=== PATIENT | male | born 1950 | race Caucasian/White ===

== ENCOUNTER 2023-09-27 09:23 | Observation (INO) ==
--- NOTE | 2023-08-24 09:50 | PAT Medication Instructions ---
Medication Instructions Date of Service August 24, 2023 Home Medications Medication Instructions Recorded ketoconazole 2 % topical cream 1 applic topical .COMPLEX #60 grams 05/26/22 nitroglycerin 0.4 mg sublingual 0.4 mg sublingual Q5M PRN chest 11/02/22 tablet pain #20 tabs losartan 100 mg tablet 100 mg PO QAM #90 tabs 07/19/23 aspirin 81 mg tablet,delayed release (Adult Low Dose Aspirin) 81 mg PO QAM multivitamin (Daily Multi-Vitamin tablet) 1 tab PO QAM ketoconazole 2 % topical cream 1 applic topical L.acid,bul,para,rham-B.anim,long 10 billion cell-inulin 100 mg capsule (Probitoic Digestive Support (6 strain)) 1 cap PO QAM fexofenadine 180 mg tablet (Blanca Allergy) 180 mg PO QAM nitroglycerin 0.4 mg sublingual tablet 0.4 mg sublingual Q5M PRN chest pain losartan 100 mg tablet 100 mg PO QAM amlodipine 5 mg tablet 10 mg PO QAM atorvastatin 80 mg tablet 80 mg PO HS isosorbide mononitrate 60 mg tablet,extended release 24 hr 30 mg PO QAM metoprolol succinate 200 mg tablet,extended release 24 hr 200 mg PO QAM omeprazole 20 mg capsule,delayed release 20 mg PO HS potassium chloride 20 mEq tablet,extended release 20 meq PO Q OTHER DAY Continue as directed nitroglycerin 0.4 mg sublingual tablet 0.4 mg sublingual Q5M PRN chest pain (if needed) STOP taking 24 hours before surgery ketoconazole 2 % topical cream 1 applic topical DO NOT take the morning of surgery multivitamin (Daily Multi-Vitamin tablet) 1 tab PO QAM L.acid,bul,para,rham-B.anim,long 10 billion cell-inulin 100 mg capsule (Probitoic Digestive Support (6 strain)) 1 cap PO QAM fexofenadine 180 mg tablet (Blanca Allergy) 180 mg PO QAM losartan 100 mg tablet 100 mg PO QAM potassium chloride 20 mEq tablet,extended release 20 meq PO Q OTHER DAY Take morning of surgery With a small sip of water, OTHERWISE NOTHING TO EAT OR DRINK AFTER MIDNIGHT: aspirin 81 mg tablet,delayed release (Adult Low Dose Aspirin) 81 mg PO QAM (unless surgeon directed otherwise) amlodipine 5 mg tablet 10 mg PO QAM isosorbide mononitrate 60 mg tablet,extended release 24 hr 30 mg PO QAM metoprolol succinate 200 mg tablet,extended release 24 hr 200 mg PO QAM Take evening before surgery atorvastatin 80 mg tablet 80 mg PO HS omeprazole 20 mg capsule,delayed release 20 mg PO HS Other Notes If you have any questions please call us at [phone] or [phone] or [phone] or [phone]
--- NOTE | 2023-08-31 09:43 | Anesthesiology Consultation ---
Date of Service August 31, 2023 Assessment & Plan (1) Encounter for pre-operative examination: Chart Review Chart Review: Pending: Refer to Additional Notes / Consult section (pending cardio clearance 09/17/23 ) and Patient seen in Pre Admission Testing - Due to abnormal preop EKG and cardiac history- patient will need cardio clearance prior to surgery. Scheduled with [facility] 09/17/23 with Jose Weathers PA-C at 945am (patient aware) Possible difficult intubation (patient states difficulty with intubation with prostatectomy in 2009)- does have decreased cervical ROM on exam (patient has not had GA done at [facility]) - Patient is NOT an OPJ candidate (surgeon's office informed) Per PAT appt on 08/31/23, patient's ill approximately 2-3 weeks ago- patient's feeling better. Patient denies any recent or current illness symptoms. Denies recent illness/disease positive tests. Will leave to surgeon's discretion if preop Covid testing needed Patient seen by cardio 07/08/23= presents for follow up on LEÓN. Patient previously walking up to 2 miles a daynow having difficulty even making it half mile before he was slowed down by breathing. Ache in legs is worse with walking but does not sound as though he is cramping of calves or buttocks suggestive of intermittent claudication. Patient started on Imdur ER 30 mg to see how exertional dyspnea would respondpatient has been feeling better overall. Feels more energetic/exercise tolerance has improved but still has LEÓN which may or may not be slightly improved. He recovers quickly. Does not have any associated chest discomfort. Patient's BP appears to be well controlled. Suspect that exertional dyspnea ischemic in origin especially since symptoms improved with long-acting nitrate. Continue current medications. Teaching & Discussion Pre-Anesthesia Teaching/Discussion Notes: Instructed NPO after midnight before surgery,except medications with 15 cc of water. Medication instructions provided according to the PAT guidelines. History Surgery Operation Date: 09/27/23 08:10 Proposed Procedures p Right Total Shoulder Arthroplasty Tony - Pk Huddleston DO Height/Weight Height: 5 ft 8 in Weight: 75.6 kg Allergies Allergy/AdvReac Type Severity Reaction Status Date / Time No Known Drug Allergies Allergy Verified 08/23/23 12:49 Medications Home Medications Medication Instructions Recorded Confirmed Last Taken aspirin 81 mg tablet,delayed 81 mg PO QAM 06/14/20 08/23/23 06/24/21 release (Adult Low Dose Aspirin) multivitamin (Daily Multi-Vitamin 1 tab PO QAM 06/14/20 08/23/23 06/25/21 05:30 tablet) ketoconazole 2 % topical cream 1 applic topical .COMPLEX #60 grams 05/26/22 08/23/23 Unknown L.acid,bul,para,rham-B.anim,long 1 cap PO QAM 08/04/22 08/23/23 Unknown 10 billion cell-inulin 100 mg capsule (Probitoic Digestive Support (6 strain)) fexofenadine 180 mg tablet 180 mg PO QAM 08/04/22 08/23/23 Unknown (Blanca Allergy) nitroglycerin 0.4 mg sublingual 0.4 mg sublingual Q5M PRN chest 11/02/22 08/23/23 Unknown tablet pain #20 tabs losartan 100 mg tablet 100 mg PO QAM #90 tabs 07/19/23 08/23/23 Unknown amlodipine 5 mg tablet 10 mg PO QAM 08/23/23 08/23/23 Unknown atorvastatin 80 mg tablet 80 mg PO HS 08/23/23 08/23/23 Unknown isosorbide mononitrate 60 mg 30 mg PO QAM 08/23/23 08/23/23 Unknown tablet,extended release 24 hr metoprolol succinate 200 mg 200 mg PO QAM 08/23/23 08/23/23 Unknown tablet,extended release 24 hr omeprazole 20 mg capsule,delayed 20 mg PO HS 08/23/23 08/23/23 Unknown release potassium chloride 20 mEq 20 meq PO Q OTHER DAY 08/23/23 08/23/23 Unknown tablet,extended release Past Medical History Medical History (Updated 08/31/23 @ 09:47 by Krysta Joe PA-C) Voice hoarseness Since 2009 prostate surgery- breathing tube damaged vocal cords Dizziness x one year- usually with change in positions- cardiology adjusting medications- with changing positions slowly- usually does well Prediabetes Presumed- Hgb A1C 6.1 on 08/10/23 Headache Improved recently - with decrease is isosorbide mononitrate Pancreatic cyst (~2020) 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) per GI, repeat MRI in 2 years Constipation Occ GERD (gastroesophageal reflux disease) Well controlled and stable Glaucoma Follows routinely with eye docotr Prostate cancer diagnosed 2009--s/p prostatectomy only, Followed by Urology Hagan's esophagus (~2009) Follows with GI for routine EGDs- no issues with most recent EGD Dyslipidemia Hypertension CAD (coronary artery disease) s/p 3 vessel CABG 2014- (FUENTES to LAD; JHONY to RI but graft was atretic on repeat cath; SVG to OM) Exercise / Class Metabolic Activity III < 4 Walking/Shop/Light housework (no chest pain or SOB with flat surface ambulation ) Past Family History Family History Brother Myocardial infarction Mother Stomach cancer Hypertension Gallbladder disease Father Hypertension Other No family history of adverse response to anesthesia Denies family history of Ovarian cancer Prostate cancer Breast cancer Colorectal cancer Past Surgical History Surgical History History of bilateral cataract extraction History of esophagogastroduodenoscopy (EGD) History of colonoscopy 10/2015, Repeat 10 yrs History of open reduction and internal fixation (ORIF) procedure femur fx-left--hardware removed History of left knee surgery History of biopsy nodule on pancreas--benign History of prostate biopsy malignant History of tonsillectomy and adenoidectomy History of eye surgery left History of cardiac cath x3 last 11/2021 @ [facility] no stents and 2014--unable to stent, had CABGx3 History of prostatectomy (~2009) History of wisdom tooth extraction History of inguinal hernia repair left S/P CABG x 3 2015 @ [facility] in [place], [place] Past Anesthesia History No Hx of Anesthesia Complications (with exception to possible difficult airway ), Difficult Airway (in 2009- with prostate surgery - had damage to vocal cords- chronic residual voice hoarseness ) and No Family Hx of Anesthesia Complications History of PONV No Hx of PONV and No Hx of Motion Sickness Social History Smoking Status: Former smoker Do You Dip or Chew Tobacco: No Smoking End Date: quit 10yrs ago Hx Alcohol Use: No Hx Substance Use: No substance use type: does not use Review of Systems Patient denies chest pain, shortness of breath, dyspnea on exertion, cough, wheezing, palpitations. No hx of seizures, stroke, NH, apnea/snoring. No hx of blood clots or blood transfusions Physical Exam Vital Signs VITALS BP 144/74 P 66bpm TEMP 97.7 SP02 97% RESP 16 Constitutional no acute distress ENMT Mouth: no TMJ clicking Thyromental Distance: < 3.5 Finger Breadths (3.0) Mallampati Class: I Caps to molars and side teeth Neck + limited neck extension (significant ) Respiratory normal respiratory effort; no respiratory distress Auscultation: lungs clear to auscultation bilaterally; no wheezes Cardiovascular Rate/Rhythm: regular rate and regular rhythm Heart Sounds: no murmur Vessels: no carotid bruit Musculoskeletal Spine: no pain with cervical ROM Extremities: extremities normal to inspection Psychiatric Orientation: alert Lab Results Anesthesia Preop Results Results Anesthesia Widget: WBC 7.22 K/ul (4.8-10.8) 08/31/23 Hgb 14.2 g/dl (14.0-18.0) 08/31/23 Hct 41.4 % (42.0-52.0) L 08/31/23 Plt 218 K/uL (130-400) 08/31/23 Na 139 mmol/L (136-145) 08/31/23 K 3.8 mmol/L (3.5-5.1) 08/31/23 Cl 102 mmol/L (98-107) 08/31/23 CO2 29 mmol/L (21-32) 08/31/23 BUN 19 mg/dl (6-23) 08/31/23 Creat 1.03 mg/dl (0.6-1.4) 08/31/23 Glucose Level 101 mg/dl (70-99(Fasting)) H 08/31/23 PT 11.5 Seconds (9.0-12.0) 08/31/23 PTT 29.6 Seconds (21.0-31.0) 08/31/23 INR 1.1 (0.9-1.1) 08/31/23 HA1c 6.1 % (4.5-5.6) H 08/10/23 Blood Type B Negative 08/31/23 Antibody Screen NEGATIVE 08/31/23 Testing Electrocardiogram Date: 08/24/23 Findings: + NSR @ (65bpm) Left atrial enlargement ST and T wave abnormality, consider anterior ischemia Chest X-Ray Date: 08/31/23 Findings: + NAD FINDINGS: Cardiac silhouette is normal in size. Sternotomy wires are present. Diaphragmatic flattening. No pneumothorax, pleural effusion or airspace consolidation. Degenerative changes of the shoulders and spine Echocardiogram Date: 07/05/20 EF: 60-65% LV Function: normal Other Findings: + LVH (mild/concentric ) and + diastolic dysfunction (Grade 1) Small area of hypokinesis involving the basal inferior wall. Mildly dilated RV with normal systolic function Sclerotic aortic valve without significant stenosis Normal estimated RVSP. Stress Test Date: 01/10/21 Type: exercise (ECHO ) Resting EF: 60% No ischemic changes noted on stress ECHO imaging at 77% MPHR Nondiagnostic exercise EKG at target heart rate was not attained Appropriate BP response to exercise. No arrhythmia. No LVH. Small area of hypokinesis involving basal inferior wall segment Cardiac Catheterization Date: 11/20/21 Coronary angiography: 1. Left main: Distal left main 60 to 70% stenosis. 2. Left anterior descending: Proximal LAD 80%. Mid LAD diffuse severe CAD of 95+ %. Competitive flow noted within the mid to distal LAD. Small caliber D1 with ostial 70% stenosis. 3. Circumflex: Dilated/Aneurysmal segment noted within the ostial/proximal circumflex, involving high OM1. Mid circumflex 30%. Competitive flow noted within the mid to distal circumflex. Large caliber high OM1 with proximal 30 to 40% stenosis. Cannot exclude more significant stenosis within the aneurysmal segment. SEBAS-3 flow. OM 2 without significant CAD. 4. Right coronary artery: RCA is dominant. Luminal irregularities within the mid RCA. No significant CAD within the PL or PDA. Bypass graft angiography: 1. FUENTES to LAD patent, filling the mid to distal LAD and also retrograde filling small D1. 2. SVG to circumflex: Widely patent. Large-caliber SVG which also fills retrograde into OM 2. 3. JHONY was reported as atretic, and not visualized during this study. Impression: 1. Severe CAD involving left main and LAD. 2. Widely patent FUENTES to LAD and SVG to circumflex. 3. Dilated/aneurysmal ostial/proximal circumflex/OM1. 4. No aortic stenosis. 5. Normal left-sided filling pressure. Plan: 1. Images were reviewed with Dr. Chery of interventional cardiology. Due to the dilated/aneurysmal portion of the ostial/proximal circumflex/high OM1, medical therapy was recommended rather than proceeding with PCI attempt of LMCA. 2. Optimize medical therapy. 3. Risk factor modification.
[~2023-09-27 09:23] MED LIST: ACETAMINOPHEN 500 MG TAB PO SCH; BUPIVACAINE 0.5 % 5 MG/1 ML PF 10ML VIAL ONE; FAMOTIDINE 20 MG TAB PO SCH; GABAPENTIN 300 MG CAP PO SCH; LR 15ML/HR IV SCH; LR 60ML/HR IV SCH; ORTHO JOINT MIX INFIL SCH; TRANEXAMIC ACID 1,000 MG **IV Intra-op IV SCH; TRANEXAMIC ACID 1,000 MG **IV Pre-op IV SCH; ceFAZolin 2000MG 2,000 MG/15 ML SYR IV SCH; dexAMETHasone 4 MG TAB PO SCH
[2023-09-27] MEDS ORDERED: ONDANSETRON INJ 2 MG/ML 2 ML VIAL ONE (09:37)
[2023-09-27] MEDS ORDERED: PROPOFOL IV EMULSION 10 MG/ML 20 ML VIAL IV ONE (09:37)
[2023-09-27] MEDS ORDERED: ROCURONIUM BROMIDE 10 MG/ML 5 ML VIAL IV ONE (09:37)
[2023-09-27] MEDS ORDERED: MIDAZOLAM HCL 1 MG/ML 2ML VIAL ONE (09:37)
[2023-09-27] MEDS ORDERED: LIDOCAINE 2% 2 ML VIAL/AMP(20MG/ML) INFIL ONE (09:37)
[2023-09-27] MEDS ORDERED: fentaNYL citrate PF 100 MCG/2 ML VIAL ONE (09:38)
[2023-09-27] MEDS ORDERED: fentaNYL citrate PF 100 MCG/2 ML VIAL IV PRN (10:04)
[2023-09-27] MEDS ORDERED: ATROPINE SULFATE 0.1 MG/ML 10ML SYR IV PRN (10:04)
[2023-09-27] MEDS ORDERED: PROMETHAZINE HCL 6.25 MG in SODIUM CHLORIDE 0.9% 50 ML IV PRN (10:04)
[2023-09-27] MEDS ORDERED: ePHEDrine sulfate 50 MG/ML AMP IV PRN (10:04)
[2023-09-27] MEDS ORDERED: ONDANSETRON INJ 2 MG/ML 2 ML VIAL IV PRN ×2 (10:04→13:50)
--- NOTE | 2023-09-27 10:08 | History & Physical Bridge Note ---
Date of Service September 27, 2023 History & Physical Bridge Note I have examined the patient, reviewed the History & Physical and in the interval since the performance of the History & Physical I have noted the following changes of clinical significance: no changes noted
[2023-09-27] MEDS ORDERED: ORTHO JOINT ANESTHETIC ONE (10:23)
--- NOTE | 2023-09-27 11:59 | Operative Report ---
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 long head of biceps tendon I identified the patient and participated in the time-out.: Yes Procedure Operation Date: 09/27/23 11:00 Actual Procedures p Right Total Shoulder Arthroplasty Reverse, Uncemented(Right) with open biceps tenodesis as a distinct and separate procedure (modifier 59)- Pk Huddleston DO Surgeon Pk Huddleston DO Garbage Collector Driver Pk Lara PA-C Estimated Blood Loss 100 Findings Consistent with Post-Op Diagnosis Specimens Right humeral head Description of Procedure A CPT code modifier 59: The long head of the biceps tendon was enlarged and inflamed consistent with tendinopathy. A tenodesis was opted. This was a separate and distinct portion of the procedure. For these reasons, a CPT code modifier 59 will be added to this case. Implants used: I used a Biomet Comprehensive reverse total shoulder arthroplasty system with a size 13 press fit micro humeral stem, a +6 offset humeral tray and a +3 retentive humeral bearing, a 25 mm small augment baseplate with a 6.5 mm central screw and superior and inferior locking screws, and a size 40 mm eccentric glenosphere. Isaac arrived at [facility] for the above procedure. He was seen in the preoperative holding area and the operative extremity was identified and signed. He was given a preoperative antibiotic, TXA, and an interscalene nerve block. He was taken back to the operating room, laid on table in supine position, and put under general anesthesia. He was then put into the beachchair position. The shoulder was then prepped and draped in sterile fashion. A timeout was done and the patient and the operative extremity was properly identified. A deltopectoral approach was used. Dissection was taken down through the fascia and the deltoid was retracted laterally and the conjoined tendon was retracted medially. The anterior shoulder was exposed. The biceps groove was opened up and the biceps tendon was examined extensively. The biceps tendon demonstrated enlargement and inflammatory changes consistent with longstanding inflammation in the context of osteoarthritis and cuff arthropathy. The long head of the biceps tendon was then tenodesed to the upper border of the pectoralis major. This was a separate and distinct portion of the procedure. The subscapularis was then directly released off the lesser tuberosity with a peel technique. The inferior capsule was released and the humeral head was dislocated. A canal finding reamer was sent down the center of the humeral canal. Sequential reaming up to a size 13 reamer was done. Off that reamer, a proximal humeral resection guide was placed. The proximal humerus was resected at 135 of inclination and 25 of retroversion. Osteophytes were then removed and the glenoid was exposed. Time was spent doing a complete capsular and labral release. The glenoid guide was then placed in the inferior aspect of the glenoid. A 3.2 mm Steinmann pin was then placed into the glenoid vault at 10 of inclination. The glenoid baseplate was then reamed. The final size 25 mm baseplate was then impacted in the place. A 6.5 mm central screw was then placed followed by superior and inferior locking screws. A 40 mm eccentric glenosphere was then impacted into place. Surrounding soft tissues were then injected with 100 cc an orthopedic pain control cocktail. The proximal humerus was then exposed. Sequential broaching of the humerus up to a size 13 broach was done. Off that broach a +6 offset and +3 retentive humeral tray was trialed. The shoulder was then reduced, brought through a full range of motion, and felt to be stable. The shoulder was then dislocated and the broach was removed. The final size 13 micro press-fit humeral stem was then impacted into place. A +3 retentive humeral bearing was then snapped onto a +6 offset humeral tray. The humeral tray was then impacted onto the humeral stem. The shoulder was once again reduced, brought through a full range of motion, and felt to be stable. The subscapularis was retracted and poor quality. The subscapularis was unable to be repaired. A dilute betadyne lavage was then done for 3 minutes. The joint was then irrigated with normal saline solution. Hemostasis was obtained. The interval was closed with 2-0 Vicryl suture. The skin was then closed with 2-0 Vicryl and aurora. A Silverlon dressing was placed and the arm was rested in a regular arm sling. He was then extubated and transferred to a hospital bed. He taken to the postanesthesia care unit in stable condition. He tolerated the procedure well. Pk Lara PA-C, was present for the entire procedure. He was critical for patient positioning, prepping, draping, retraction exposure, wound closure and application of sterile dressing. I attest to the content of the Intraoperative Record and any orders documented therein. Any exceptions are noted below.
[2023-09-27] MEDS ORDERED: SUGAMMADEX SODIUM 200 MG/2 ML VIAL IV ONE (12:02)
--- NOTE | 2023-09-27 12:35 | XRay Report ---
RIGHT SHOULDER 2 VIEWS CLINICAL HISTORY: Postoperative examination. FINDINGS: 2 portable views of the right shoulder are compared to study dated 07/19/2020. The skeletal structures are osteopenic. A right shoulder arthroplasty is in near anatomic alignment. No fracture s een. Skin clips, subcutaneous gas, and soft tissue swelling overlying the right shoulder are expected postsurgical changes. There is productive degenerative change at the acromioclavicular joint. The im aged right lung parenchyma is clear noting dependent atelectasis. Midline sternotomy wires are partia lly imaged. IMPRESSION: Expected post surgical findings status post right shoulder arthroplasty. No fracture is s een. Electronically signed by: Mushtaq Curran M.D. 09/27/2023 12:33 PM
--- NOTE | 2023-09-27 12:38 | Anesthesiology Progress Note ---
Date of Service September 27, 2023 Anesthesia Post Procedure Vital Signs Vital Signs: Temp Pulse Pulse Resp BP Pulse Ox O2 Del Method 09/27/23 12:35 69 20 108/60 95 Room Air 09/27/23 12:25 70 18 108/64 99 Oxymask 09/27/23 12:15 36.2 C L 76 12 131/62 100 Oxymask 09/27/23 09:58 36.9 C 68 18 189/82 H 98 Room Air O2 Flow Rate 09/27/23 12:35 09/27/23 12:25 4 09/27/23 12:15 6 09/27/23 09:58 Transfer of Care Handoff Completed per policy Notes Mental Status: alert / awake / arousable Patient Amnestic to Procedure: Yes Nausea / Vomiting: adequately controlled Pain: adequately controlled Airway Patency, RR, SpO2: stable & adequate BP & HR: stable & adequate Hydration State: stable & adequate Anesthetic Complications: no major complications apparent
[2023-09-27] MEDS ORDERED: HYDROmorphone INJ 0.5 MG/0.5 ML SYR IV PRN (13:50)
[2023-09-27] MEDS ORDERED: NALOXONE HCL 0.4 MG/1 ML VIAL/CARP IV PRN (13:50)
[2023-09-27] MEDS ORDERED: bisacodyL 10 MG SUPP PR PRN (13:50)
[2023-09-27] MEDS ORDERED: METOCLOPRAMIDE HCL INJ 5 MG/ML 2 ML VIAL IV PRN (13:50)
[2023-09-27] MEDS ORDERED: NITROGLYCERIN SL 0.4 MG/TAB TAB SL PRN (13:50)
[2023-09-27] MEDS ORDERED: oxyCODONE HCL IR 5 MG TAB (IMMEDIATE RELEASE) PO PRN (13:50)
[2023-09-27] MEDS ORDERED: MAGNESIUM HYDROXIDE SUSP 30 ML UDC PO PRN (13:50)
[2023-09-27] MEDS ORDERED: KETOCONAZOLE 2% CR 15 GM TUBE EXT SCH (13:50)
[2023-09-27] MEDS ORDERED: POTASSIUM CHLORIDE CRTAB 20 MEQ TABCR PO SCH (13:50)
[2023-09-27] MEDS: SODIUM CHLORIDE 0.9% 1,000 ML IV SCH ×2 (16:06→16:21)
[2023-09-27] MEDS: KETOROLAC TROMETHAMINE 15 MG/ML VIAL IV SCH ×3 (16:21→23:20)
[2023-09-27] MEDS: ACETAMINOPHEN 500 MG TAB PO SCH ×2 (16:21→21:16)
[2023-09-27] MEDS: ceFAZolin 2000MG 2,000 MG/15 ML SYR IV SCH (18:49)
[2023-09-27] MEDS ORDERED: ATORVASTATIN 40 MG TAB PO SCH (21:00)
[2023-09-27] MEDS ORDERED: SENNA 8.6 MG TAB PO SCH (21:00)
[2023-09-27] MEDS: DOCUSATE SODIUM 100 MG CAP PO SCH (21:16)
[2023-09-28] MEDS: ceFAZolin 2000MG 2,000 MG/15 ML SYR IV SCH (01:41)
[2023-09-28] MEDS: SODIUM CHLORIDE 0.9% 1,000 ML IV SCH (03:53)
[2023-09-28] MEDS: ACETAMINOPHEN 500 MG TAB PO SCH (06:04)
[2023-09-28] MEDS: KETOROLAC TROMETHAMINE 15 MG/ML VIAL IV SCH (06:05)
[2023-09-28] MEDS ORDERED: dexAMETHasone 4 MG TAB PO SCH (08:00)
[2023-09-28] MEDS: DOCUSATE SODIUM 100 MG CAP PO SCH (08:39)
[2023-09-28] MEDS ORDERED: METOPROLOL SUCC 50MG EXT REL TAB PO SCH (09:00)
[2023-09-28] MEDS ORDERED: ISOSORBIDE MONO EXTENDED REL 30 MG TABCR PO SCH (09:00)
[2023-09-28] MEDS ORDERED: FEXOFENADINE HCL 180 MG TAB PO SCH (09:00)
[2023-09-28] MEDS ORDERED: LOSARTAN POTASSIUM 50 MG TAB PO SCH (09:00)
[2023-09-28] MEDS ORDERED: amLODIPine BESYLATE 5 MG TAB PO SCH (09:00)
[2023-09-28] MEDS ORDERED: ASPIRIN 81 MG ECTAB PO SCH (09:00)
[2023-09-28] MEDS ORDERED: MULTIVITAMIN TAB PO SCH (09:00)
--- NOTE | 2023-09-28 09:19 | Orthopedic Progress Note ---
Date of Service September 28, 2023 Assessment & Plan (1) Status post reverse total replacement of right shoulder: Overall he is doing quite well today with good pain control to the right shoulder. He will work with physical therapy and Occupational Therapy today to work on range of motion exercises to the right upper extremity. He may be discharged later today. He will follow-up with orthopedics in 2 weeks for postoperative care. Subjective . Isaac was seen at bedside this morning resting comfortably in no apparent distress. He notes that his pain is well-controlled to the right shoulder. He has been up and ambulating to the bathroom. He has no other concerns today. Review of Systems All systems reviewed & are unremarkable except as noted in HPI & below. Physical Exam . On physical examination of the right shoulder, dressing is in place, dry, and intact. Arm is immobilized in the sling. Active range of motion is intact at the elbow, wrist, and all 5 digits. Intact motor function to the right upper extremity. +2 radial pulse. Less than 2-second capillary refill. Normal sensation. Neurovascular intact. Results & Data Results & Data Laboratory Results . Diagnostic Findings . Postoperative x-rays of the right shoulder show prosthesis to be in anatomical alignment with no evidence of fracture complication or loosening. PG Care Time/CCT Total # of Minutes Spent Total Time Spent with Patient: Total time spent is greater than 50% in coordination of care (as documented) at patient's floor/unit and/or counseling patient: Coding Level of Care Code 50194 Post Operative Follow-Up Diagnoses Status post reverse total replacement of right shoulder Z96.611
--- NOTE | 2023-09-28 09:21 | Discharge Summary ---
Date of Service September 28, 2023 Principal Diagnosis Same as "Discharge Diagnosis" noted below under Discharge Instructions. Discharge Exam . On physical examination of the right shoulder, dressing is in place, dry, and intact. Arm is immobilized in the sling. Active range of motion is intact at the elbow, wrist, and all 5 digits. Intact motor function to the right upper extremity. +2 radial pulse. Less than 2-second capillary refill. Normal sensa tion. Neurovascular intact. Discharge Data Procedures Performed Operation Date: 09/27/23 11:00 Actual Procedures p Right Total Shoulder Arthroplasty Reverse, Uncemented(Right) - Pk Huddleston DO Ordered Studies 09/27/23 05:00 US - OR guided needle placemen Routine Hospital Course (1) Status post reverse total replacement of right shoulder: On September 27, 2023 Isaac arrived at [facility] and underwent a right reverse total shoulder arthroplasty with no complications. He had a general anesthetic. Postoperatively, he was transferred to PACU for immediate postoperative care and then transferred up to the general orthopedic floor in stable condition. His hospital course was uneventful. On postoperative day #1, his vital signs are stable and his pain was well-controlled. He participated well with physical therapy working on range of motion exercises. He was then discharged home in stable condition. He will follow-up with orthopedics in [facility] for postoperative care. PG Care Time/CCT Total # of Minutes Spent Total Time Spent with Patient: Total time spent is greater than 50% in coordination of care (as documented) at patient's floor/unit and/or counseling patient: Discharge Plan Discharge Items Patient Disposition: Home - Home Health Services Reason For Visit: DJD Right Shoulder Discharge Diagnosis: Right reverse shoulder replacement Activity: Per Instructions section Non-emergency contact: Surgeon Call non-emergency contact if: your wound has increased redness and your wound has increased drainage Follow-up/Referrals: Pk Saeed DO [Primary Care Provider] - Diet: Low Sodium (2gm) Addtl Attending Provider Instructions: Activity and Therapy Recommendations: * If you are using [facility] then therapy will be provided at your home until they feel you have accomplished all of your goals. * If you are using [facility] then Physical Therapy will be provided until they feel you are ready to start Outpatient Physical Therapy. * If you are not using home therapy then Outpatient Physical Therapy should start about 3-5 days from your day of surgery. Therapy will last about 8-12 weeks * Wear your sling for 3 weeks, unless otherwise instructed. You may remove your sling to shower and to dress, but otherwise, you should be in your sling at all times, including while sleeping * The shoulder replacement is very stable and you can use your hand while in the sling * You were shown a series of exercises in the hospital. Do these exercises daily including the exercises you were shown in physical therapy. Medications: * Narcotic You will likely be sent home from the hospital with a prescription for the narcotic pain medication that worked best throughout your stay. * Cefadroxil -take the antibiotic twice a day for 10 days to help prevent infection. * Other medications may be prescribed for specific circumstances. If you have any questions, please call the office at . * Resume previous home medications unless otherwise instructed Dressing Care: Leave the Silverlon dressing in place for 7 days. After 7 days you may remove the dressing. If the incision is not draining then you may leave the aurora open to air. If there is a little bit of drainage or if the aurora are getting stuck on your clothing then cover the incision with a dry dressing. The aurora will be removed at your 2 week follow-up appointment. Showering: You may shower with the Silverlon dressing in place. Do not let the shower spray hit the dressing directly. Pat the Silverlon dressing dry. If the dressing becomes wet underneath, then simply remove the dressing. Keep the incision dry until you are 7 days out from the day of surgery. After 7 days you may remove the Silverlon dressing and shower with the aurora exposed. Let soapy water run over the aurora and pat them dry. Do not scrub or soak the incision. Things To Watch For: * Drainage from the incision site that occurs more than one week after your surgery. * Increased redness at the incision site. * Fever above 102 degrees Fahrenheit. * Unusual chest pain or shortness of breath. * Call [facility] at with any of the above problems Follow-Up Visit: Follow-up with Dr. Huddleston's PA (Pk Lara) 2-3 weeks after your day of surgery. He will remove your aurora and answer any questions. If you have any additional questions or concerns, Dr Huddleston is usually in the office at the same time and will be available An appointment was probably scheduled when you signed-up for surgery in the office. If you have any questions call More detailed instructions as well as Frequently Asked Questions were provided in a folder by our office when you signed-up for surgery. Please review these instructions when you get home. If you have any further questions or concerns, please feel free to call the office at [phone] Pending Studies at Discharge: No Stand-Alone Forms: My [facility] Maintenance Assistant, Smoking Cessation Medications and DC Order Prescriptions: New cefadroxil 500 mg capsule 500 mg PO BID 10 Days Qty: 20 0RF tramadol 50 mg tablet 50 mg PO Q6H PRN (Reason: pain) Qty: 30 0RF Continued nitroglycerin 0.4 mg tablet, sublingual 0.4 mg sublingual Q5M PRN (Reason: chest pain) Qty: 20 3RF Rx Instructions: do not exceed 3 doses per episode losartan 100 mg tablet 100 mg PO QAM Qty: 90 3RF ketoconazole 2 % cream 1 applic topical .COMPLEX Qty: 60 2RF Rx Instructions: 1 applic topically to feet 2-3 nights weekly for maintenance. fexofenadine [Blanca Allergy] 180 mg tablet 180 mg PO QAM Probiotic Digest Supp (6-strn) 10 billion cell -100 mg capsule 1 cap PO QAM aspirin [Adult Low Dose Aspirin] 81 mg tablet,delayed release (DR/EC) 81 mg PO QAM multivitamin [Daily Multi-Vitamin] Tablet 1 tab PO QAM amlodipine 5 mg tablet 10 mg PO QAM isosorbide mononitrate 60 mg tablet extended release 24 hr 30 mg PO QAM omeprazole 20 mg capsule,delayed release(DR/EC) 20 mg PO HS potassium chloride 20 mEq tablet extended release 20 meq PO Q OTHER DAY Patient Comments: in am metoprolol succinate 200 mg tablet extended release 24 hr 200 mg PO QAM Patient Comments: QAM atorvastatin 80 mg tablet 80 mg PO HS Admission Data Admit Date/Time: 09/27/23 12:15 Attending Provider: Pk Huddleston Admit Provider: Pk Huddleston Primary Care Provider: Pk Saeed
== END 2023-09-28 10:35 | disposition home health service (06) ==
LOC: 3W 09:23 → ASU 09:23

== ENCOUNTER 2024-07-13 09:50 | Inpatient (IN) ==
[2024-07-13] MEDS: SODIUM CHLORIDE 0.9% 500 ML IV SCH (10:33)
--- NOTE | 2024-07-13 10:36 | Emergency Department Note ---
History of Present Illness General Chief complaint: Syncope Stated complaint: SYNCOPE Time Seen by Provider: 07/13/24 10:11 Source: patient, family (Daughter and son-in-law are at the bedside), RN notes reviewed and old records reviewed (06/15/24-outpatient primary care visit for ongoing medical treatments) Mode of arrival: ambulatory Limitations: no limitations History of Present Illness This patient comes in after having a syncopal episode. He does have a history of falls and got dizzy this morning and fell. There were no injuries. His may have a headache for couple weeks. He was recently was in [facility]. His does have COVID. He is on no blood or melena stool no diarrhea. No chest pain or shortness of breath. No abdominal pain . no focal numbness or weakness. Denies abdominal pain. Denies urinary symptoms. Home Medications Medication Instructions Recorded Confirmed Type aspirin 81 mg tablet,delayed 81 mg PO QAM 06/14/20 07/13/24 History release (Adult Low Dose Aspirin) multivitamin (Daily Multi-Vitamin 1 tab PO QAM 06/14/20 07/13/24 History tablet) L.acid,bul,para,rham-B.anim,long 1 cap PO QAM 08/04/22 07/13/24 History 10 billion cell-inulin 100 mg capsule (Probitoic Digestive Support (6 strain)) fexofenadine 180 mg tablet 180 mg PO QAM 08/04/22 07/13/24 History (Blanca Allergy) losartan 100 mg tablet 100 mg PO QAM #90 tabs 07/19/23 07/13/24 Rx isosorbide mononitrate 60 mg 30 mg PO QAM 08/23/23 07/13/24 History tablet,extended release 24 hr atorvastatin 80 mg tablet 80 mg PO HS 09/15/23 07/13/24 History metoprolol succinate 200 mg 200 mg PO QAM #90 tabs 10/15/23 07/13/24 Rx tablet,extended release 24 hr amoxicillin 500 mg tablet 2,000 mg PO UD PRN procedures 12/07/23 07/13/24 History omeprazole 40 mg capsule,delayed 40 mg PO HS barretts esophagus #90 12/23/23 07/13/24 Rx release caps potassium chloride 20 mEq 20 meq PO Q2D #90 tabs 03/15/24 07/13/24 Rx tablet,extended release ketoconazole 2 % topical cream 1 applic topical UD #30 grams 04/11/24 07/13/24 Rx nitroglycerin 0.4 mg sublingual 0.4 mg sublingual Q5M PRN chest 04/11/24 07/13/24 Rx tablet pain #20 tabs amlodipine 5 mg tablet 7.5 mg (1.5 x 5 mg) PO DAILY #45 05/09/24 07/13/24 Rx tabs cyanocobalamin (vitamin B-12) 1,000 mcg PO DAILY #30 caps 05/11/24 07/13/24 Rx 1,000 mcg capsule Allergies Allergy/AdvReac Type Severity Reaction Status Date / Time No Known Drug Allergies Allergy Verified 06/15/24 09:26 Past Med/Surg History Problem List (Updated 07/13/24 @ 10:36 by Pk Jasmine MD) Escherichia coli infection (Acute) Acute electrocardiogram changes (Acute) Elevated troponin (Acute) COVID (Acute) Chest pain Hypokalemia Hypomagnesemia Cognitive decline Fall Diarrhea COVID-19 Syncope (Acute) Elevated alkaline phosphatase level Vitamin B12 deficiency Headache syndrome Loss of taste Chronic headaches Balance disorder Prediabetes Presumed- Hgb A1C 6.1 on 08/10/23 Pancreatic cyst (~2020) 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) per GI, repeat MRI in 2 years Dyspnea on exertion Exertional angina Hypertension S/P CABG x 3 (Acute) 2014 @ [facility] in [place], [place] CAD (coronary artery disease) s/p 3 vessel CABG 2014- (FUENTES to LAD; JHONY to RI but graft was atretic on repeat cath; SVG to OM) Dyslipidemia (Chronic) GERD (gastroesophageal reflux disease) Well controlled and stable Hagan's esophagus (~2009) Follows with GI, Last EGD 11/2023 History of prostatectomy (~2009) Prostate cancer diagnosed 2009--s/p prostatectomy only, Followed by Urology Glaucoma Follows routinely with eye docotr DDD (degenerative disc disease), lumbar Status post reverse total replacement of right shoulder (~09/2023) Medical History Abnormal EKG Voice hoarseness Since 2009 prostate surgery- breathing tube damaged vocal cords Dizziness x one year- usually with change in positions- cardiology adjusting medications- with changing positions slowly- usually does well Headache Improved recently - with decrease is isosorbide mononitrate Constipation Occ Surgical History History of reverse total replacement of right shoulder joint History of bilateral cataract extraction History of esophagogastroduodenoscopy (EGD) History of colonoscopy 10/2015, Repeat 10 yrs History of open reduction and internal fixation (ORIF) procedure femur fx-left--hardware removed History of left knee surgery History of biopsy nodule on pancreas--benign History of prostate biopsy malignant History of tonsillectomy and adenoidectomy History of eye surgery left History of cardiac cath x3 last 11/2021 @ [facility] no stents and 2014--unable to stent, had CABGx3 History of wisdom tooth extraction History of inguinal hernia repair left Family History Brother Myocardial infarction Mother Stomach cancer Hypertension Gallbladder disease Father Hypertension Other No family history of adverse response to anesthesia Denies family history of Ovarian cancer Prostate cancer Breast cancer Colorectal cancer Social History Smoking Status: Former smoker Tobacco Type: Cigarettes Age Started Using Tobacco: 23; Age Quit Using Tobacco: 36; packs per day: 1; Second Hand Exposure: No; Do You Dip or Chew Tobacco: No; Hx Alcohol Use: No Hx Substance Use: No Preferred Language: British Communication Ability: Effective Visual Impairment: Limited Hearing Ability: Hard of Hearing 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 Required: No Beliefs That Will Affect Care: None marital status: Current Living Situation: Spouse current occupational status: retired How many Children do You have: 2 Feels Safe at Home: Yes Childhood Exposure to Second-Hand Smoke: Yes Diet: regular caffeine: Yes (coffee ) during the past year weight has: decreased > 10 lbs Dental Care, Regularly: Yes Physical Activity Frequency: 3-4 Times per Week Physical Activity Frequency Comment: walking Seatbelt Use: always Sunscreen Use: No Do you think of yourself as: straight/heterosexual Assistive Devices: Glasses Review of Systems A total of 10 systems reviewed and were otherwise negative Physical Exam Vital Signs Vital Signs - 24 hr 07/13/24 10:01 07/13/24 10:40 07/13/24 10:40 Temperature 36.7 C Temperature Source Oral Pulse Rate 63 63 Pulse Rate [Apical] Pulse Rhythm Regular Pulse Rhythm [Apical] Pulse Strength Normal Pulse Strength [Apical] Respiratory Rate 24 Respiratory Effort / Characteristics Non-Labored Spontaneous Respiratory Depth Normal Respiratory Pattern Regular Blood Pressure 151/60 H Blood Pressure [Left Arm] Blood Pressure Mean 90 Blood Pressure Mean [Left Arm] Blood Pressure Position Semi-fowlers Blood Pressure Position [Left Arm] Pulse Oximetry 93 93 Oxygen Delivery Method Room Air Room Air Sepsis Recent Fever Within 48 Hours No Sepsis New/Unexplained Change in Mental Status No Sepsis Action Taken by Nursing No Action Required 07/13/24 10:40 07/13/24 12:00 Temperature Temperature Source Pulse Rate Pulse Rate [Apical] 63 62 Pulse Rhythm Pulse Rhythm [Apical] Regular Pulse Strength Pulse Strength [Apical] Normal Respiratory Rate 24 18 Respiratory Effort / Characteristics Non-Labored Spontaneous Respiratory Depth Normal Respiratory Pattern Regular Blood Pressure Blood Pressure [Left Arm] 151/60 H 171/71 H Blood Pressure Mean Blood Pressure Mean [Left Arm] 90 104 Blood Pressure Position Blood Pressure Position [Left Arm] Semi-fowlers Pulse Oximetry 93 96 Oxygen Delivery Method Room Air Sepsis Recent Fever Within 48 Hours Sepsis New/Unexplained Change in Mental Status Sepsis Action Taken by Nursing General: Well developed well nourished older male who appears in no acute distress, breathing comfortably on room air. Normal speech HEENT: Normal cephalic atraumatic. Pupils are equal round and reactive to light. Sclera are anicteric extraocular movements are intact. Oropharynx is pink with moist mucous membranes. No swelling of the mouth lips or tongue. Neck: Supple with a midline trachea. No meningeal signs or stiffness, no JVD or bruits. No Stridor. Chest: Clear to auscultation bilaterally. No wheezes or rhonchi. No increased work of breathing. Heart: Regular rate and rhythm without murmurs or gallops. Abdomen: Soft nontender, nondistended without rebound guarding or rigidity. Extremities: No cyanosis clubbing or edema. No calf tenderness or assymetry Spine/Back. Non tender to palpation. No CVA tenderness Skin: Good turgor without rashes. Neurologic exam: Cranial nerves two through 12 are intact. Motor and sensation are intact and symmetrical throughout. No tremor. Course Administered Medications Magnesium Sulfate/Dextrose (Magnesium Sulfate / D5w) 1 gm in 100 mls @ 50 mls/hr IV Q2H MARIBEL Stop: 07/13/24 15:59 Last Infusion: 07/13/24 15:16 Dose: Infused Documented By: Admin: 07/13/24 12:29 Dose: 50 mls/hr Documented By: Lactated Ringer's (Lr) 1,000 mls @ 80 mls/hr IV .[id number] MARIBEL Stop: 07/14/24 14:29 Last Admin: 07/13/24 14:13 Dose: 80 mls/hr Documented By: KHADIJAH Discontinued Medications Sodium Chloride (Nss) 500 mls @ 999 mls/hr IV .[id number] MARIBEL Stop: 07/13/24 11:00 Last Infusion: 07/13/24 12:29 Dose: Infused Documented By: Admin: 07/13/24 10:33 Dose: 999 mls/hr Documented By: Isosorbide Mononitrate (Isosorbide Desha Extended Rel 30 Mg Tabcr) 30 mg PO NOW ONE Stop: 07/13/24 13:10 Last Admin: 07/13/24 14:13 Dose: 30 mg Documented By: KHADIJAH Magnesium Oxide (Magnesium Oxide 400 Mg Tab) 400 mg PO ONE ONE Stop: 07/13/24 11:59 Last Admin: 07/13/24 12:29 Dose: 400 mg Documented By: Potassium Chloride (Potassium Chloride Crtab 20 Meq Tabcr) 40 meq PO NOW STA Stop: 07/13/24 12:09 Last Admin: 07/13/24 12:40 Dose: 40 meq Documented By: Medical Decision Making Differential Diagnosis COVID, arrhythmia, weakness, intracranial process, traumatic injury, anemia, infection, dehydration Medical Records Attestation: I reviewed the patient's medical records. Home Medications Current Medication List: was personally reviewed by me Laboratory Data Attestation: I reviewed the patient's lab results. 07/13/24 10:00 07/13/24 10:00 Lab Results 07/13/24 07/13/24 07/13/24 Range/Units 10:00 10:20 12:40 WBC 7.55 (4.8-10.8) K/ul RBC 5.01 (4.70-6.10) M/uL Hgb 14.7 (14.0-18.0) g/dl Hct 41.8 L (42.0-52.0) % MCV 83.4 (80.0-100.0) fL MCH 29.3 (25.0-34.0) pg MCHC 35.2 (32.0-36.0) g/dL RDW Std Deviation 40.5 (36.4-46.3) fL RDW Coeff of [place] 13.3 (11.5-14.5) % Plt Count 167 (130-400) K/uL MPV 11.8 (9.4-12.4) fL Immature Gran % (Auto) 0.3 % Neut % (Auto) 80.0 % Lymph % (Auto) 9.1 % Desha % (Auto) 10.1 % Eos % (Auto) 0.4 % Baso % (Auto) 0.1 % Neut # (Auto) 6.04 (1.40-6.50) K/uL Lymph # (Auto) 0.69 L (1.20-3.40) K/uL Desha # (Auto) 0.76 H (0.11-0.59) K/uL Eos # (Auto) 0.03 (0.00-0.50) K/uL Baso # (Auto) 0.01 (0.00-0.20) K/uL Immature Gran # (Auto) 0.02 (0.01-0.20) K/uL PT 11.7 (9.0-12.0) Seconds INR 1.1 (0.9-1.1) APTT 26 (21-31) Seconds PTT Ratio 1.0 Sodium 142 (136-145) mmol/L Potassium 3.3 L (3.5-5.1) mmol/L Chloride 105 (98-107) mmol/L Carbon Dioxide 29 (21-32) mmol/L Anion Gap 8 (3-11) BUN 17 (6-23) mg/dl Creatinine 1.09 (0.6-1.4) mg/dl Est Cr Clr Drug Dosing 58.4 ml/min Est GFR ( Amer) 77.6 ml/min Est GFR (Non-Af Amer) 67.0 ml/min BUN/Creatinine Ratio 15.6 (10-20) Glucose 130 H (70-99(Fasting)) mg/dl Calcium 9.2 (8.6-10.3) mg/dl Magnesium 1.3 L (1.7-2.4) mg/dl Total Bilirubin 0.6 (0.2-1.0) mg/dl AST 14 (13-39) U/L ALT 16 (7-52) U/L Alkaline Phosphatase 87 (34-104) U/L Troponin I High Sens 31.0 H 32.7 H (0-20) pg/ml Total Protein 7.0 (6.0-8.3) gm/dl Albumin 4.3 (3.4-5.0) gm/dl Globulin 2.7 (2.5-4.0) gm/dl Albumin/Globulin Ratio 1.6 (0.9-2) Lipase 27 (11-82) U/L TSH 0.584 (0.300-4.500) uIu/ml Urine Color Dark Yellow Urine Appearance Cloudy A (Clear) Urine pH 5.5 (4.5-7.5) Ur Specific [place] 1.029 (1.000-1.030) Urine Protein 3+ H (Negative) Urine Glucose (UA) Negative (Negative) Urine Ketones Trace H (Negative) Urine Blood Negative (Negative) Urine Nitrite Negative (Negative) Urine Bilirubin 1+ H (Negative) Urine Urobilinogen Negative (Negative) Ur Leukocyte Esterase Trace H (Negative) Urine WBC (Auto) 11-20 H (0-5) /hpf Urine RBC (Auto) 11-20 H (0-2) /hpf U Hyaline Cast (Auto) 6-10 H (0-2) /lpf U Epithel Cells (Auto) 3-5 H (0-2) /hpf Urine Bacteria (Auto) 1+ H (None Seen) Amorphous Sediment Present A (None Prsent) WBC Casts Present A (None Prsent) /lpf Urine Mucus Present A (None Prsent) Stl C. cayetanensis PCR Not Detected (NotDetected) Stool Rotavirus A PCR Not Detected (NotDetected) Stl Adenov F 40/41 PCR Not Detected (NotDetected) Stool Astrovirus (PCR) Not Detected (NotDetected) Stool Campylobacter PCR Not Detected (NotDetected) Stool Cryptosporidium PCR Not Detected (NotDetected) Stl E.coli Shiga Tox PCR Not Detected (NotDetected) Stl Enterotoxigenic E PCR Not Detected (NotDetected) Stool EPEC (PCR) DETECTED A* (NotDetected) Stool EAEC (PCR) Not Detected (NotDetected) Stl E. histolytica PCR Not Detected (NotDetected) Stool Giardia Lamblia PCR Not Detected (NotDetected) Stool Salmonella PCR Not Detected (NotDetected) Stool Sapovirus (PCR) Not Detected (NotDetected) Stl P. shigelloides PCR Not Detected (NotDetected) Stl Shigella/EIEC PCR Not Detected (NotDetected) St Y.enterocolitica PCR Not Detected (NotDetected) Stool Vibrio (PCR) Not Detected (NotDetected) Stl Vibrio cholerae PCR Not Detected (NotDetected) Stl Norovirus GI/GII PCR Not Detected (NotDetected) SARS-CoV-2 (PCR) POSITIVE A (Negative) Influenza Type A (PCR) Negative (Neg) Influenza Type B (PCR) Negative (Neg) RSV (RT-PCR) Negative (Neg) Imaging Data Attestation: I personally reviewed and interpreted this imaging study as follows: My Impression: Chest x-rayno acute infiltrate, failure, pneumothorax seen Radiologist's Impression: Head CT 07/13/24 10:25 CT OF THE HEAD WITHOUT CONTRAST CLINICAL HISTORY: Syncope. Headache. COMPARISON STUDY: Head CT September 29, 2023. MRI of the brain February 23, 2024. CT DOSE: 625.8 mGy.cm TECHNIQUE: Helical axial images of the head were obtained without IV contrast. Automated exposure control was utilized for the study. A dose lowering technique was utilized adhering to the principles of ALARA. FINDINGS: No acute intracranial hemorrhage, midline shift or mass effect is present. The ventricular system is unremarkable. The basal cisterns are patent. No extra-axial collections are present. There are no findings to suggest acute dural sinus thrombosis or acute territorial infarct. There are no calvarial fractures. There is mild ethmoid sinus mucosal thickening. IMPRESSION: 1. No acute intracranial findings. 2. No calvarial fractures. ACT 112: Negative or not required by law. Electronically signed by: Aniceto Dodson M.D. 07/13/2024 11:08 AM Chest X-Ray 07/13/24 10:26 XR chest 1V portable CLINICAL HISTORY: syncope TECHNIQUE: Single frontal radiograph of the chest was obtained. Comparison: Comparison is made to chest radiograph 09/29/2023 FINDINGS: Median sternotomy wires are unchanged. Right shoulder reverse arthroplasty is seen. Cardiomegaly is noted. The lungs are clear. No evidence of pleural effusion or pneumothorax. IMPRESSION: No acute chest disease. ACT 112: Negative or not required by law. Electronically signed by: Malvin Lakhani M.D. 07/13/2024 10:58 AM ECG Data Attestation: I personally reviewed and interpreted this ECG as follows: Indication: + syncope and + weakness Rate (beats per minute): 64 Rhythm: + normal sinus ECG Intervals/blocks: + Normal QRS, + Normal QT and + Normal DE ECG [place]: + Normal ECG Findings: + Other (T wave inversions anterior/laterally) Comparison ECG Date: from (09/29/2023) Change: the following changes noted (The lateral T wave inversions are new.) MDM Narrative This patient comes in as described above. He was placed on a reproduction order processor and be 10. I talked to his family members were at the bedside. He had a episode where he fell and may have syncopized. He does have a cardiac history as white cell also has COVID. We did get a stool sample as he had loose stool/diarrhea here. Given all these reasons and extensive workup was done he was hydrated with 500 cc normal saline bolus chest x-ray and EKG and cardiac workup was done as well as other blood testing. I did a CAT scan of his head. He was COVID tested as well as stool studies were done. He was reassessed frequently. His chest x-ray was clear his head CT shows no acute abnormalities. His COVID test did come back positive. His troponins also mildly elevated initially and he does have some T wave inversions laterally. I do think he needs to be admitted/observed for further cardiac workup and evaluation given his history. His stool also came back positive for EPEC E. coli. I discussed the case at length with the hospitalist and the patient will be admitted/observed for these measures. Continuous reproduction order processor: Orders placed in EMR for continuous cardiac monitoring: Upon my evaluation patient to be in normal sinus rhythm rate of 65 Impression & Plan Syncope, S/P CABG x 3, COVID, Elevated troponin, Acute electrocardiogram changes, Escherichia coli infection Discharge Plan Visit Data Chief Complaint: Syncope Stated Complaint: SYNCOPE ED Provider: Pk Jasmine ED Midlevel Provider: Kieran Benito Discharge Problem: Syncope, S/P CABG x 3, COVID, Elevated troponin, Acute electrocardiogram changes, Escherichia coli infection Discharge Instructions Interventions: ED Discharge Assessment Last Done: 07/13/24 14:01 Discharge Problem: Syncope Qualifiers: Syncope type: unspecified Qualified Code(s): R55 - Syncope and collapse
[2024-07-13 11:00] LABS: Basophils # (auto) 0.01 K/uL (0.00-0.20); Basophils % (auto) 0.1 %; Eosinophils # (auto) 0.03 K/uL (0.00-0.50); Eosinophils % (auto) 0.4 %; Hematocrit (blood only) 41.8 % (42.0-52.0); Hemoglobin 14.7 g/dl (14.0-18.0); Immature Granulocytes # (auto) 0.02 K/uL (0.01-0.20); Immature Granulocytes % (auto) 0.3 %; Lymphocytes # (auto) 0.69 K/uL (1.20-3.40); Lymphocytes % (auto) 9.1 %; Mean Corpuscular Hemoglobin 29.3 pg (25.0-34.0); Mean Corpuscular Hgb Conc 35.2 g/dL (32.0-36.0); Mean Corpuscular Volume 83.4 fL (80.0-100.0); Mean Platelet Volume 11.8 fL (9.4-12.4); Monocytes # (auto) 0.76 K/uL (0.11-0.59); Monocytes % (auto) 10.1 %; Neutrophils # (auto) 6.04 K/uL (1.40-6.50); Platelet Count 167 K/uL (130-400); RDW Coefficient of Variation 13.3 % (11.5-14.5); RDW Standard Deviation 40.5 fL (36.4-46.3); Red Blood Count 5.01 M/uL (4.70-6.10); White Blood Count 7.55 K/ul (4.8-10.8)
--- NOTE | 2024-07-13 11:00 | XRay Report ---
XR chest 1V portable CLINICAL HISTORY: syncope TECHNIQUE: Single frontal radiograph of the chest was obtained. Comparison: Comparison is made to chest radiograph 09/29/2023 FINDINGS: Median sternotomy wires are unchanged. Right shoulder reverse arthroplasty is seen. Cardiomegaly is n oted. The lungs are clear. No evidence of pleural effusion or pneumothorax. IMPRESSION: No acute chest disease. ACT 112: Negative or not required by law. Electronically signed by: Malvin Lakhani M.D. 07/13/2024 10:58 AM
--- NOTE | 2024-07-13 11:09 | CT Scan Report ---
CT OF THE HEAD WITHOUT CONTRAST CLINICAL HISTORY: Syncope. Headache. COMPARISON STUDY: Head CT September 29, 2023. MRI of the brain February 23, 2024. CT DOSE: 625.8 mGy.cm TECHNIQUE: Helical axial images of the head were obtained without IV contrast. Automated exposure con trol was utilized for the study. A dose lowering technique was utilized adhering to the principles o f ALARA. FINDINGS: No acute intracranial hemorrhage, midline shift or mass effect is present. The ventricular system is unremarkable. The basal cisterns are patent. No extra-axial collections are present. There are no findings to suggest acute dural sinus thrombosis or acute territorial infarct. There are no ca lvarial fractures. There is mild ethmoid sinus mucosal thickening. IMPRESSION: 1. No acute intracranial findings. 2. No calvarial fractures. ACT 112: Negative or not required by law. Electronically signed by: Aniceto Dodson M.D. 07/13/2024 11:08 AM
[2024-07-13 11:10] LABS: Appearance Urine Cloudy (Clear); Bilirubin Urine 1+ (Negative); Blood Urine Negative (Negative); Color Urine Dark Yellow; Glucose Urine UA Negative (Negative); Ketones Urine Trace (Negative); Leukocyte Esterase Urine Trace (Negative); Mucus Urine Present (None Prsent); Nitrite Urine Negative (Negative); Protein Urine 3+ (Negative); Specific Gravity Urine 1.029 (1.000-1.030); Urobilinogen Urine Negative (Negative); pH Urine 5.5 (4.5-7.5)
[2024-07-13 11:20] LABS: Amorphous Sediment Urine Present (None Prsent); Bacteria Urine Automated 1+ (None Seen); White Blood Cell Casts Urine Present /lpf (None Prsent)
[2024-07-13 11:26] LABS: Albumin Globulin Ratio 1.6 (0.9-2); Albumin Level 4.3 gm/dl (3.4-5.0); BUN Creatinine Ratio 15.6 (10-20); Bilirubin,Total 0.6 mg/dl (0.2-1.0); Calcium 9.2 mg/dl (8.6-10.3); Creatinine Clr Calc Pharmacy 58.4 ml/min; Est GFR (African American) 77.6 ml/min; Globulin 2.7 gm/dl (2.5-4.0); Magnesium 1.3 mg/dl (1.7-2.4); Potassium 3.3 mmol/L (3.5-5.1)
[2024-07-13 11:41] LABS: Influenza A virus by PCR Negative (Neg); Influenza B virus by PCR Negative (Neg); RSV by PCR Negative (Neg); SARS CoV2 RNA(COVID-19) Ceph POSITIVE (Negative)
[2024-07-13 11:42] LABS: Thyroid Stimulating Hormone 0.584 uIu/ml (0.300-4.500)
[2024-07-13 11:52] LABS: INR 1.1 (0.9-1.1); Partial Thromboplastin Time 26 Seconds (21-31); Prothrombin Time 11.7 Seconds (9.0-12.0)
--- NOTE | 2024-07-13 12:04 | History & Physical Report ---
Date of Service July 13, 2024 Assessment & Plan (1) Fall: Plan: Unwitnessed fall on the morning of 07/13 Patient is a poor historian at this time; does not member falling heard a "crash" in the kitchen; no LOC; no blood thinners; patient denies head strike; however, patient was unable to talk or stand up on his own after falling No strokelike symptoms or seizure-like activity; no history of this (per ) PT/OT evaluations appreciated Fall precautions A.m. CBC, BMP (2) COVID-19: Plan: COVID (+) on arrival Likely contributing #1 Isolation precautions No leukocytosis; nonhypoxic; afebrile on arrival Will defer steroids/remdesivir at this time Supportive care Acetaminophen as needed for pain/fever Continuous pulse oximetry (3) Cognitive decline: Plan: Per , patient has had cognitive decline since September 2023 He will occasionally stare blankly and not respond to questions No acute change in cognition today; however, does report he had trouble getting his pants on this morning, which is new for him Head CT without acute findings Continue to follow with neurology outpatient (4) Chest pain: Plan: Elevated troponin at 31.0 on arrival, repeat pending; trend to peak EKG revealed NSR at 64 bpm, but with inverted T waves in anterior leads Patient does endorse midsternal, 5/10 chest pain on arrival x several hours on the morning of 07/13 Echocardiogram ordered, pending Continuous telemetry monitoring Repeat EKG as needed for worsening of chest pain (5) Diarrhea: Plan: Diarrhea x 1 day; nonbloody, per patient Stool EPEC (+) on arrival Will defer antibiotics (such as azithromycin or fluoroquinolones) at this time Supportive care Gentle IVF maintenance with LR at 80mL/hr x 2 L (6) S/P CABG x 3: Plan: Continue home medications, including aspirin (7) Hypomagnesemia: Plan: Replete (8) Hypokalemia: Plan: Replete Plan [facility]: [facility] D[facility]/DNI Regular diet VTE PPx: Lovenox 40 mg SQ q24h History of Present Illness Chief Complaint: Syncope Primary Care Provider: Pk Saeed DO Isaac is a 74-year-old male with PMH of glaucoma, dyslipidemia, CAD s/p CABG x 3, HTN, exertional angina, and syncope. He presented on 07/13 for an unwitnessed fall this morning. Patient is a poor historian at time of admission, and reports that he does not remember falling. When asked why he was brought in the hospital, he says "I guess I fell". He denies head strike, but is unsure. He does report he has been dizzy/lightheaded recently. Patient will occasionally stare blankly and not respond to questioning. He did did not take his temperature at home, but does endorse feeling hot/sweaty last night. He denies prior episodes of COVID, but does report he is immunized x 2. Not on blood thinners. Both he and his recently got back from [place], and tested positive for COVID. At time of admission, patient endorses chest pain that started several hours ago. He describes it as a "throbbing" pain that is intermittent; rates it 5/10 at present. While he says it does radiate, he is unable to identify where it radiates. Patient did not take any pain medicine before coming into the hospital. He did not take his regular morning medications today; patient's helps to manage his medications at home. Patient is hypertensive in 151/60 at time admission; vitals otherwise stable. ED course: NSS 500 mL IV ROS: Patient endorses fever, dizziness, lightheadedness, headache, chest pain, mild pleuritic CP, diarrhea (started this morning), Patient denies changes in vision (blurry vision/double vision), changes in taste/smell/hearing, SOB, cough, hemoptysis, abdominal pain, N/V, burning with urination, or blood in the urine/stool. Spoke to patient's /POA (Sandi) on the phone who provided additional his tory. reports that the patient did not take his regular morning medications today; no recent change in medications, but she reports they have been tweaking the amlodipine dosage due to history of low blood pressure. She reports that the patient has had changes in cognitive baseline ever since September 2023 (he is currently following with neurology). He regularly has episodes of 5 to 10 minutes of blank staring and confusion. This is not new for him. However this morning when the patient woke up, he was unable to figure out how to put on his pants. reports no slurred speech, facial droop, unilateral deficits. No history of stroke or seizures. The patient then went out to make coffee in the kitchen and experienced an unwitnessed fall. heard a "crash" and went to check on him. Patient denied head strike and had no LOC. However he was unable to talk after this event, and was unable to stand on his own. Both the patient and the patient's reports they just traveled back from [place] recently and have both tested positive for COVID. reports that she is his power of assistant city attorney medical emergency and does have paperwork to that effect. She reconfirms that he is DNR/DNI. Allergies Allergy/AdvReac Type Severity Reaction Status Date / Time No Known Drug Allergies Allergy Verified 06/15/24 09:26 Home Medications Medication Instructions Recorded Confirmed Type aspirin 81 mg tablet,delayed 81 mg PO QAM 06/14/20 07/13/24 History release (Adult Low Dose Aspirin) multivitamin (Daily Multi-Vitamin 1 tab PO QAM 06/14/20 07/13/24 History tablet) L.acid,bul,para,rham-B.anim,long 1 cap PO QAM 08/04/22 07/13/24 History 10 billion cell-inulin 100 mg capsule (Probitoic Digestive Support (6 strain)) fexofenadine 180 mg tablet 180 mg PO QAM 08/04/22 07/13/24 History (Blanca Allergy) losartan 100 mg tablet 100 mg PO QAM #90 tabs 07/19/23 07/13/24 Rx isosorbide mononitrate 60 mg 30 mg PO QAM 08/23/23 07/13/24 History tablet,extended release 24 hr atorvastatin 80 mg tablet 80 mg PO HS 09/15/23 07/13/24 History metoprolol succinate 200 mg 200 mg PO QAM #90 tabs 10/15/23 07/13/24 Rx tablet,extended release 24 hr amoxicillin 500 mg tablet 2,000 mg PO UD PRN procedures 12/07/23 07/13/24 History omeprazole 40 mg capsule,delayed 40 mg PO HS barretts esophagus #90 12/23/23 07/13/24 Rx release caps potassium chloride 20 mEq 20 meq PO Q2D #90 tabs 05/29/24 09/26/24 Rx tablet,extended release ketoconazole 2 % topical cream 1 applic topical UD #30 grams 04/11/24 07/13/24 Rx nitroglycerin 0.4 mg sublingual 0.4 mg sublingual Q5M PRN chest 04/11/24 Rx tablet pain #20 tabs amlodipine 5 mg tablet 7.5 mg (1.5 x 5 mg) PO DAILY #45 05/09/24 07/13/24 Rx tabs cyanocobalamin (vitamin B-12) 1,000 mcg PO DAILY #30 caps 05/11/24 07/13/24 Rx 1,000 mcg capsule Past Med/Surg History Problem List (Updated 07/13/24 @ 10:36 by Pk Jasmine MD) Chest pain Hypokalemia Hypomagnesemia Cognitive decline Fall Diarrhea COVID-19 Syncope (Acute) Elevated alkaline phosphatase level Vitamin B12 deficiency Headache syndrome Loss of taste Chronic headaches Balance disorder Prediabetes Presumed- Hgb A1C 6.1 on 08/10/23 Pancreatic cyst (~2020) 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) per GI, repeat MRI in 2 years Dyspnea on exertion Exertional angina Hypertension S/P CABG x 3 (Acute) 2015 @ [facility] in [place], [place] CAD (coronary artery disease) s/p 3 vessel CABG 2014- (FUENTES to LAD; JHONY to RI but graft was atretic on repeat cath; SVG to OM) Dyslipidemia (Chronic) GERD (gastroesophageal reflux disease) Well controlled and stable Hagan's esophagus (~2009) Follows with GI, Last EGD 11/2023 History of prostatectomy (~2009) Prostate cancer diagnosed 2009--s/p prostatectomy only, Followed by Urology Glaucoma Follows routinely with eye docotr DDD (degenerative disc disease), lumbar Status post reverse total replacement of right shoulder (~09/2023) Medical History Abnormal EKG Voice hoarseness Since 2009 prostate surgery- breathing tube damaged vocal cords Dizziness x one year- usually with change in positions- cardiology adjusting medications- with changing positions slowly- usually does well Headache Improved recently - with decrease is isosorbide mononitrate Constipation Occ Surgical History History of reverse total replacement of right shoulder joint History of bilateral cataract extraction History of esophagogastroduodenoscopy (EGD) History of colonoscopy 10/2015, Repeat 10 yrs History of open reduction and internal fixation (ORIF) procedure femur fx-left--hardware removed History of left knee surgery History of biopsy nodule on pancreas--benign History of prostate biopsy malignant History of tonsillectomy and adenoidectomy History of eye surgery left History of cardiac cath x3 last 11/2021 @ [facility] no stents and 2014--unable to stent, had CABGx3 History of wisdom tooth extraction History of inguinal hernia repair left Family History Brother Myocardial infarction Mother Stomach cancer Hypertension Gallbladder disease Father Hypertension Other No family history of adverse response to anesthesia Denies family history of Ovarian cancer Prostate cancer Breast cancer Colorectal cancer Social History Smoking Status: Former smoker Tobacco Type: Cigarettes Age Started Using Tobacco: 23; Age Quit Using Tobacco: 36; packs per day: 1; Second Hand Exposure: No; Do You Dip or Chew Tobacco: No; Hx Alcohol Use: No Hx Substance Use: No Preferred Language: Maori Communication Ability: Effective Visual Impairment: Limited Hearing Ability: Hard of Hearing Seed 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 Required: No Beliefs That Will Affect Care: None marital status: Current Living Situation: Spouse current occupational status: retired How many Children do You have: 2 Feels Safe at Home: Yes Childhood Exposure to Second-Hand Smoke: Yes Diet: regular caffeine: Yes (coffee ) during the past year weight has: decreased > 10 lbs Dental Care, Regularly: Yes Physical Activity Frequency: 3-4 Times per Week Physical Activity Frequency Comment: walking Seatbelt Use: always Sunscreen Use: No Do you think of yourself as: straight/heterosexual Assistive Devices: Glasses Review of Systems Review of Systems: See HPI above Physical Exam Physical Exam: General: no acute distress; pleasant affect; anxious; non-toxic appearing; co operative; SpO2 96% on RA HEENT: normocephalic, atraumatic; no scleral icterus; PERRLA; vision and hearing intact Neck: supple; no lymphadenopathy; trachea midline Skin: Forehead is warm to touch; moist, without signs of tenting; no cyanosis; no rashes, bruising, lesions, or erythema noted CV: chest wall NTP; RRR; S1/S2 normal; no murmurs/rubs/gallops; pulses intact and symmetric at radial, DP, and PT Lungs: no acute respiratory distress; symmetrical chest wall expansion; clear breath sounds across all lung bedoya w/o adventitious sounds; no wheezing ABD: Soft, NTP; BS present; no rebound/guarding; no distention MSK: no tics or fasciculations; no edema noted in the LEs b/l, nonerythematous Neuro: A&Ox3; however, patient does not respond to all questioning and will occasionally stare blankly; no facial droop, or slurred speech; patient may exhibit some memory deficits, and is unable to explain why he is in the hospital; he reports that sensation is intact and symmetric in the face/UEs/LEs bilaterally Results & Data Results & Data Vital Signs (Past 12 Hours) Vital Signs Temp Pulse Pulse Resp BP BP Pulse Ox 07/13/24 10:40 63 24 151/60 H 93 07/13/24 10:40 93 07/13/24 10:40 36.7 C 63 24 151/60 H 93 07/13/24 10:01 63 O2 Del Method 07/13/24 10:40 Room Air 07/13/24 10:40 Room Air 07/13/24 10:40 Room Air 07/13/24 10:01 Laboratory Results Abnormal lab results 07/13/24 07/13/24 Range/Units 10:00 10:20 Hct 41.8 L (42.0-52.0) % Lymph # (Auto) 0.69 L (1.20-3.40) K/uL [place] # (Auto) 0.76 H (0.11-0.59) K/uL Potassium 3.3 L (3.5-5.1) mmol/L Glucose 130 H (70-99(Fasting)) mg/dl Magnesium 1.3 L (1.7-2.4) mg/dl Troponin I High Sens 31.0 H (0-20) pg/ml Urine Appearance Cloudy A (Clear) Urine Protein 3+ H (Negative) Urine Ketones Trace H (Negative) Urine Bilirubin 1+ H (Negative) Ur Leukocyte Esterase Trace H (Negative) Urine WBC (Auto) 11-20 H (0-5) /hpf Urine RBC (Auto) 11-20 H (0-2) /hpf U Hyaline Cast (Auto) 6-10 H (0-2) /lpf U Epithel Cells (Auto) 3-5 H (0-2) /hpf Urine Bacteria (Auto) 1+ H (None Seen) Amorphous Sediment Present A (None Prsent) WBC Casts Present A (None Prsent) /lpf Urine Mucus Present A (None Prsent) SARS-CoV-2 (PCR) POSITIVE A (Negative) Diagnostic Findings Head CT 07/13/24 10:25 CT OF THE HEAD WITHOUT CONTRAST CLINICAL HISTORY: Syncope. Headache. COMPARISON STUDY: Head CT September 29, 2023. MRI of the brain February 23, 2024. CT DOSE: 625.8 mGy.cm TECHNIQUE: Helical axial images of the head were obtained without IV contrast. Automated exposure control was utilized for the study. A dose lowering technique was utilized adhering to the principles of ALARA. FINDINGS: No acute intracranial hemorrhage, midline shift or mass effect is present. The ventricular system is unremarkable. The basal cisterns are patent. No extra-axial collections are present. There are no findings to suggest acute dural sinus thrombosis or acute territorial infarct. There are no calvarial fractures. There is mild ethmoid sinus mucosal thickening. IMPRESSION: 1. No acute intracranial findings. 2. No calvarial fractures. ACT 112: Negative or not required by law. Electronically signed by: Aniceto Dodson M.D. 07/13/2024 11:08 AM Chest X-Ray 07/13/24 10:26 XR chest 1V portable CLINICAL HISTORY: syncope TECHNIQUE: Single frontal radiograph of the chest was obtained. Comparison: Comparison is made to chest radiograph 09/29/2023 FINDINGS: Median sternotomy wires are unchanged. Right shoulder reverse arthroplasty is seen. Cardiomegaly is noted. The lungs are clear. No evidence of pleural effusion or pneumothorax. IMPRESSION: No acute chest disease. ACT 112: Negative or not required by law. Electronically signed by: Malvin Lakhani M.D. 07/13/2024 10:58 AM ECG Additional Comments: ECG revealed NSR at 64 bpm; QTc [address] abnormalities Code Status & VTE Plan VTE Prophylaxis Plan VTE Prophylaxis will be ordered: Yes Supervising Physician Co-Signing Physician Notes Patient seen and examined, chart reviewed, case discussed with Finesse Mckee PA-C and I agree with the assessment and plan as above except as otherwise noted Labs and images reviewed 74-year-old male who presents with weakness and an episode of syncope while standing in his kitchen. Recently returned from a trip to [facility] and is COVID- positive and EPEC positive. His is also COVID-positive. No chest pain; however EKG is with progression of lateral T wave inversions compared to prior. No ST segment abnormalities. Patient has not had dyspnea, tachycardia, pleuritic pain, or hypoxia to suggest PE and no EKG changes suggestive of this. His magnesium is low and patient has had diarrhea since travel constent with EPEC. Syncope is due to electrolyte depletion and volume depletion in the setting of both COVID and E. coli diarrhea. Will defer antibiotic treatment however if symptoms are prolonged or fail to resolve with conservative treatment then can consider a 3-day course of Cipro versus azithromycin. Target toxic is not present. Mag and potassium are both low on admission, repletion ordered at time of admission. Repeat troponin is pending, minimally elevated at 31 without chest pain. Echo is pending. Chest x-ray does not show acute disease, CThead is clear. No cervical neck pain. Agree with above. PG Care Time/CCT Total # of Minutes Spent Total Time Spent with Patient: Total time spent is greater than 50% in coordination of care (as documented) at patient's floor/unit and/or counseling patient: Coding [place] [address] INT INP/OBS CARE 3/75MIN Patient Type Established History Comprehensive Exam Comprehensive Medical Decision Making High Complexity Diagnoses Fall W19.XXXA COVID-19 U07.1 Cognitive decline R41.89 Chest pain R07.9 Diarrhea R19.7 S/P CABG x 3 Z95.1 Hypomagnesemia E83.42 Hypokalemia E87.6
[2024-07-13] MEDS ORDERED: ONDANSETRON INJ 2 MG/ML 2 ML VIAL IV PRN ×2 (12:08→15:14)
[2024-07-13 12:22] LABS: Adenovirus F 40/41 PCR Not Detected (NotDetected); Astrovirus PCR Not Detected (NotDetected); Campylobacter PCR Not Detected (NotDetected); Cryptosporidium PCR Not Detected (NotDetected); Cyclospora cayetanensis PCR Not Detected (NotDetected); Entamoeba histolytica PCR Not Detected (NotDetected); Enteroaggregative E.coli(EAEC) Not Detected (NotDetected); Enterotoxigenic E.coli (ETEC) Not Detected (NotDetected); Giardia lamblia PCR Not Detected (NotDetected); Norovirus GI/GII PCR Not Detected (NotDetected); Plesiomonas shigelloides PCR Not Detected (NotDetected); Rotavirus A PCR Not Detected (NotDetected); Salmonella PCR Not Detected (NotDetected); Sapovirus PCR Not Detected (NotDetected); Shiga-like Toxin E.coli (STEC) Not Detected (NotDetected); Shigella/Enteroinvasive E.coli Not Detected (NotDetected); Vibrio cholerae PCR Not Detected (NotDetected); Vibrio species PCR Not Detected (NotDetected); Yersinia enterocolitica PCR Not Detected (NotDetected)
[2024-07-13] MEDS: MAGNESIUM SULFATE / D5W 1 GM/100 ML BAG IV SCH (12:29)
[2024-07-13] MEDS: MAGNESIUM OXIDE 400 MG TAB PO ONE (12:29)
[2024-07-13] MEDS: POTASSIUM CHLORIDE CRTAB 20 MEQ TABCR PO STA (12:40)
[2024-07-13 12:46] LABS: Enteropathogenic E.coli (EPEC) DETECTED (NotDetected)
[2024-07-13] MEDS: ISOSORBIDE MONO EXTENDED REL 30 MG TABCR PO ONE (14:13)
[2024-07-13] MEDS: LACTATED RINGER'S 1,000 ML IV SCH (14:13)
[2024-07-13] MEDS ORDERED: ACETAMINOPHEN 325 MG TAB PO PRN (15:14)
[2024-07-13] MEDS: amLODIPine BESYLATE 5 MG TAB PO SCH (16:46)
[2024-07-13] MEDS: ASPIRIN 81 MG ECTAB PO SCH (16:47)
[2024-07-13] MEDS: LOSARTAN POTASSIUM 50 MG TAB PO SCH (16:47)
--- NOTE | 2024-07-13 16:55 | XCELERA ---
[id number]
[2024-07-13] MEDS: ENOXAPARIN INJ 40 MG/0.4 ML SYR SQ SCH (20:41)
[2024-07-13] MEDS: PANTOprazole 40 MG TAB PO SCH (20:42)
[2024-07-13] MEDS: ATORVASTATIN 40 MG TAB PO SCH (20:42)
[2024-07-13] MEDS: MAGNESIUM OXIDE 400 MG TAB PO SCH (20:42)
--- NOTE | 2024-07-14 06:09 | Electrocardiogram Report ---
Test Reason : Blood Pressure : */* mmHG Vent. Rate : 64 BPM Atrial Rate : 64 BPM P-R Int : 154 ms QRS Dur : 100 ms QT Int : 424 ms P-R-T Axes : 58 44 81 degrees QTcB Int : 437 ms Normal sinus rhythm Possible Left atrial enlargement Incomplete right bundle branch block Abnormal ECG When compared with ECG of 29-Sep-2023 11:18, Inverted T waves have replaced nonspecific T wave abnormality in Anterior leads Confirmed by West Gaston ([id number]) on 07/14/2024 6:08:58 AM Referred By: Confirmed By: West Gaston
[2024-07-14] MEDS: FEXOFENADINE HCL 180 MG TAB PO SCH (08:37)
[2024-07-14] MEDS: METOPROLOL SUCC 50MG EXT REL TAB PO SCH (08:37)
[2024-07-14] MEDS: ISOSORBIDE MONO EXTENDED REL 30 MG TABCR PO SCH (08:37)
[2024-07-14] MEDS: POTASSIUM CHLORIDE CRTAB 20 MEQ TABCR PO SCH ×2 (08:38→11:07)
[2024-07-14 08:39] LABS: Basophils # (auto) 0.01 K/uL (0.00-0.20); Basophils % (auto) 0.2 %; Eosinophils # (auto) 0.01 K/uL (0.00-0.50); Eosinophils % (auto) 0.2 %; Hematocrit (blood only) 39.3 % (42.0-52.0); Hemoglobin 13.9 g/dl (14.0-18.0); Immature Granulocytes # (auto) 0.01 K/uL (0.01-0.20); Immature Granulocytes % (auto) 0.2 %; Lymphocytes # (auto) 0.65 K/uL (1.20-3.40); Lymphocytes % (auto) 10.7 %; Mean Corpuscular Hgb Conc 35.4 g/dL (32.0-36.0); Mean Platelet Volume 11.5 fL (9.4-12.4); Monocytes # (auto) 0.95 K/uL (0.11-0.59); Monocytes % (auto) 15.7 %; Neutrophils # (auto) 4.44 K/uL (1.40-6.50); Platelet Count 134 K/uL (130-400); RDW Coefficient of Variation 13.2 % (11.5-14.5); RDW Standard Deviation 39.7 fL (36.4-46.3); Red Blood Count 4.79 M/uL (4.70-6.10); White Blood Count 6.07 K/ul (4.8-10.8)
[2024-07-14 09:19] LABS: BUN Creatinine Ratio 14.6 (10-20); Creatinine Clr Calc Pharmacy 77.6 ml/min; Est GFR (African American) 101.7 ml/min; Est GFR (Non-African American) 87.7 ml/min; Magnesium 1.8 mg/dl (1.7-2.4); Potassium 3.3 mmol/L (3.5-5.1)
[2024-07-14 09:29] LABS: Troponin I High Sensitivity 86.4 pg/ml (0-20)
[2024-07-14] MEDS: OPTIRAY 320 125ml IV ONE (18:06)
--- NOTE | 2024-07-14 19:01 | CT Scan Report ---
CT angio chest PE protocol CLINICAL HISTORY: recent travel, COVID+, chest pains TECHNIQUE: Multidetector row helical CT of the chest was performed with angiographic protocol. Beal l and sagittal reformations were obtained. Coronal and sagittal MIPS were obtained from the axial nury a set and were submitted for review. Automated dose lowering techniques and/or adjustment according to patient size were utilized for this exam. CT DOSE: 722.14 mGy.cm Comparison: Comparison is made to chest radiograph 07/13/2024 FINDINGS: Lungs and pleura: Atelectasis versus scarring is seen in the dependent portions of the lungs. Heart and pericardium: Cardiomegaly is seen with biatrial enlargement. Vessels: Severe atherosclerotic changes in the aorta and coronary arteries. Mediastinum and richard: Unremarkable. Chest wall and lower neck: Unremarkable. Abdomen: A hiatal hernia is seen. Bones: Degenerative changes in the thoracic spine. Right shoulder arthroplasty is seen. IMPRESSION: No acute abnormality and in particular no evidence of pulmonary embolus. No consolidation is seen. ACT 112: Negative or not required by law. Electronically signed by: Malvin Lakhani M.D. 07/14/2024 6:58 PM
[2024-07-14] MEDS: ALBUTEROL HFA 8 GM INHALER INH SCH (19:49)
--- NOTE | 2024-07-14 19:49 | Hospitalist Progress Note ---
Date of Service July 14, 2024 Assessment & Plan (1) COVID-19: Plan: likely day 2 or 3 of his illness no hypoxia, but sats are low-normal at times in the lower 90s CTA chest obtained due to long-distance plane travel, his c/o chest tightness/discomfort, and COVID illness - negative for PE in light of his age, comorbidities, etc he is at high risk of disease progression thus, start Remdesivir daily check ast/alt am for cough/wheeze - albuterol, tessalon, mucinex add flutter valve & incentive joanne low threshold to add dexamethasone if any clinical worsening from pulmonary standpoint (2) Fall: Plan: Unwitnessed fall on the morning of 07/13 CPK checked today - normal Suspect he developed weakness in the setting of his COVID infection can't rule out syncope or arrhythmia contributing to the fall given the sinus pause seen on tele today Fortunately no apparent injuries from the fall PT, OT evals PT advising rehab post-d/c (3) Sinus pause: Plan: 5 seconds seen on tele this am no obvious symptoms cont tele hold beta amanda echo with normal EF and anatomy low threshold for cardiology evaluation if any additional pauses at minimum would advise extended monitoring post-discharge to see if he is having these on regular basis (4) Cognitive decline: Plan: Per , patient has had cognitive decline since September 2023 (5) Chest pain: Plan: echo with preserved eF and normal LV wall motion CTA chest w/o PE or pneumonia initial troponin was 31, rising to 86 today will check another in am the elevated troponin is likely demand ischemia in setting of COVID infection although EKG shows anterior T wave inversions these are chronic doubt ACS (6) Diarrhea: Plan: Diarrhea x 1 day by report Stool [employer]Fire + for EPEC Defer antibiotics (such as azithromycin or fluoroquinolones) for now since GI symptoms are mild at most and EPEC is typically self-limiting Diarrhea could also be from COVID itself Monitor carefully (7) S/P CABG x 3: Plan: Continue aspirin, statin, amlodipine, imdur, ARB Records indicate CABG involved FUENTES to LAD, SVG to OM1, and atretic JHONY to ramus Last cath [address] Dominik Gaston - Impression: 1. Severe CAD involving left main and LAD. 2. Widely patent FUENTES to LAD and SVG to circumflex. 3. Dilated/aneursymal ostial/proximal circumflex/OM1. 4. No aortic stenosis. 5. Normal left-sided filling pressure. Plan: 1. Images were reviewed with Dr. Chery of interventional cardiology. Due to the dilated/aneurysmal portion of the ostial/proximal circumflex/high OM1, medical therapy was recommended rather than proceeding with PCI attempt of LMCA. If chest symptoms persist, troponin rise is steep, etc low threshold for cardiology eval (8) Hypomagnesemia: Plan: Repleted resolved (9) Hypokalemia: Plan: Repleted but still low place on standing K supplement BID repeat BMP in am Plan DVT PPx: Lovenox 40 mg SQ q24h updated by phone extensively Admission and Anticipated Discharge Date Admission Date: July 13, 2024 Subjective patient lying in bed watching TV reports cough, chest congestion, chest tightness across the entire chest some of his chest tightness is mildly pleuritic denies dyspnea at rest feels poorly overall - fatigued, weak, myalgias, headache appetite fair at best denies nausea or emesis just returned from [place] by plane earlier this week patient reports episodes of "blanking out" that last for a few minutes I spoke to his by phone about these spells - blanking out/staring/etc last up to 10 min in duration tele - one 5 sec sinus pause, otherwise normal telemetry Review of Systems Review of Systems: gen - no fever or chills cv - no orthopnea GI - no abd pain pulm - no sputum Physical Exam Physical Exam: gen - lying in bed, no distress - but coughing neck - no JVD mouth - MM slightly dry voice - hoarse (mild) heart - RRR, s1 s2, no murmur or rub lungs - course BS b/l with scattered wheezes, slight basilar crackle scattered abd - soft NT ND BS+ ext - no edema, pulses 2+ b/l Results & Data Results & Data Vital Signs (Past 12 Hours) Vital Signs Temp Pulse Pulse Resp BP Pulse Ox O2 Del Method 07/14/24 19:43 37.2 C 67 18 132/76 94 Room Air 07/14/24 15:35 36.6 C 62 16 132/72 92 Room Air 07/14/24 14:00 63 09/27/24 11:47 36.6 C 64 16 124/69 93 Room Air 07/14/24 09:27 36.8 C 83 16 153/85 H 94 Room Air Laboratory Results Laboratory Results - last 24 hr 07/14/24 07/14/24 08:10 08:15 WBC 6.07 RBC 4.79 Hgb 13.9 L Hct 39.3 L MCV 82.0 MCH 29.0 MCHC 35.4 RDW Std Deviation 39.7 RDW Coeff of Pino 13.2 Plt Count 134 MPV 11.5 Immature Gran % (Auto) 0.2 Neut % (Auto) 73.0 Lymph % (Auto) 10.7 Elk % (Auto) 15.7 Eos % (Auto) 0.2 Baso % (Auto) 0.2 Neut # (Auto) 4.44 Lymph # (Auto) 0.65 L [place] # (Auto) 0.95 H Eos # (Auto) 0.01 Baso # (Auto) 0.01 Immature Gran # (Auto) 0.01 Sodium 138 Potassium 3.3 L Chloride 102 Carbon Dioxide 26 Anion Gap 10 BUN 12 Creatinine 0.82 Est Cr Clr Drug Dosing 77.6 Est GFR ( Amer) 101.7 Est GFR (Non-Af Amer) 87.7 BUN/Creatinine Ratio 14.6 Glucose 95 Calcium 9.0 Magnesium 1.8 Total Creatine Kinase 95 Troponin I High Sens 86.4 H* D PG Care Time/CCT Total # of Minutes Spent Total Time Spent with Patient: Total time spent is greater than 50% in coordination of care (as documented) at patient's floor/unit and/or counseling patient: Coding Level of Care Code 49312 SUB INP/OBS CARE 3/50MIN Diagnoses COVID-19 U07.1 Fall W19.XXXA Sinus pause I45.5 Cognitive decline R41.89 Chest pain R07.9 Diarrhea R19.7 S/P CABG x 3 Z95.1 Hypomagnesemia E83.42 Hypokalemia E87.6
[2024-07-14] MEDS: REMDESIVIR 200 MG in SODIUM CHLORIDE 0.9% 210 ML IV STA (21:16)
[2024-07-14] MEDS: guaiFENesin 600 MG TABCR PO SCH (21:21)
[2024-07-14] MEDS: BENZONATATE 100 MG CAPSULE PO SCH (21:21)
[2024-07-15 07:31] LABS: Basophils # (auto) 0.01 K/uL (0.00-0.20); Basophils % (auto) 0.2 %; Eosinophils # (auto) 0.02 K/uL (0.00-0.50); Eosinophils % (auto) 0.3 %; Hematocrit (blood only) 39.3 % (42.0-52.0); Immature Granulocytes # (auto) 0.02 K/uL (0.01-0.20); Immature Granulocytes % (auto) 0.3 %; Lymphocytes # (auto) 1.15 K/uL (1.20-3.40); Lymphocytes % (auto) 18.4 %; Mean Corpuscular Hemoglobin 29.3 pg (25.0-34.0); Mean Corpuscular Hgb Conc 35.6 g/dL (32.0-36.0); Mean Corpuscular Volume 82.2 fL (80.0-100.0); Mean Platelet Volume 11.7 fL (9.4-12.4); Monocytes # (auto) 0.83 K/uL (0.11-0.59); Monocytes % (auto) 13.3 %; Neutrophils # (auto) 4.22 K/uL (1.40-6.50); Neutrophils % (auto) 67.5 %; Platelet Count 133 K/uL (130-400); RDW Coefficient of Variation 13.4 % (11.5-14.5); RDW Standard Deviation 40.2 fL (36.4-46.3); Red Blood Count 4.78 M/uL (4.70-6.10); White Blood Count 6.25 K/ul (4.8-10.8)
[2024-07-15 07:52] LABS: BUN Creatinine Ratio 17.9 (10-20); Calcium 8.8 mg/dl (8.6-10.3); Est GFR (African American) 91.7 ml/min; Est GFR (Non-African American) 79.1 ml/min; Potassium 3.7 mmol/L (3.5-5.1)
[2024-07-15 08:01] LABS: Troponin I High Sensitivity 53.8 pg/ml (0-20)
--- NOTE | 2024-07-15 16:31 | Hospitalist Progress Note ---
Date of Service July 15, 2024 Assessment & Plan (1) COVID-19: Plan: likely day 3-4 of his illness no hypoxia, but sats are low-normal at times in the lower 90s CTA chest obtained due to long-distance plane travel, his c/o chest tightness/discomfort, and COVID illness - negative for PE or pneumonia in light of his age, comorbidities, etc he is at high risk of disease progression thus, started Remdesivir daily - day #2 today ast/alt wnl defer on steroids for now but low threshold to add dexamethasone if any clinical worsening from pulmonary standpoint for cough/wheeze - cont albuterol, tessalon, mucinex cont flutter valve & incentive joanne (2) Fall: Plan: Unwitnessed fall on the morning of 07/13 CPK checked - normal Suspect he developed weakness in the setting of his COVID infection can't rule out syncope or arrhythmia contributing to the fall given the sinus pause seen on tele earlier in the stay Fortunately no apparent injuries from the fall PT, OT evals recommending rehab post-d/c (3) Sinus pause: Plan: 5 seconds seen on tele 07/14/24 AM no obvious symptoms cont tele hold beta amanda echo with normal EF and anatomy low threshold for cardiology evaluation if any additional pauses at minimum would advise extended monitoring post-discharge to see if he is having these on regular basis thus far no additional pauses (4) Cognitive decline: Plan: Per , patient has had cognitive decline since September 2023 (5) Chest pain: Plan: echo with preserved eF and normal LV wall motion CTA chest w/o PE or pneumonia initial troponin was 31, rising to 86, then falling the elevated troponin is likely demand ischemia in setting of COVID infection although EKG shows anterior T wave inversions these are chronic doubt ACS (6) Diarrhea: Plan: Diarrhea x 1 day by report Stool BioFire + for EPEC Defer antibiotics (such as azithromycin or fluoroquinolones) for now since GI symptoms are mild at most and EPEC is typically self-limiting Diarrhea could also be from COVID itself Monitor carefully (7) S/P CABG x 3: Plan: Continue aspirin, statin, amlodipine, imdur, ARB Records indicate CABG involved FUENTES to LAD, SVG to OM1, and atretic JHONY to ramus Last cath [address] Dominik Gaston - Impression: 1. Severe CAD involving left main and LAD. 2. Widely patent FUENTES to LAD and SVG to circumflex. 3. Dilated/aneursymal ostial/proximal circumflex/OM1. 4. No aortic stenosis. 5. Normal left-sided filling pressure. Plan: 1. Images were reviewed with Dr. Chery of interventional cardiology. Due to the dilated/aneurysmal portion of the ostial/proximal circumflex/high OM1, medical therapy was recommended rather than proceeding with PCI attempt of LMCA. If chest symptoms persist or recur will have low threshold for cardiology eval (8) Hypomagnesemia: Plan: Repleted resolved (9) Hypokalemia: Plan: Repleted resolved Plan DVT PPx: Lovenox 40 mg SQ q24h updated by phone extensively 07/14 PM Admission and Anticipated Discharge Date Admission Date: July 13, 2024 Subjective tele wnl overnight no pauses seen pt feels better still tired, still coughing - but he feels a little better today no new complaints appetite improved Review of Systems Review of Systems: cv - no further chest symptoms, no heaviness today pulm - no dyspnea at rest, ongoing cough/congestion GI - no abd pain or N/V Physical Exam Physical Exam: gen - lying in bed, no distress, looks a little better today, watching TV neck - no JVD mouth - MMM voice - hoarse heart - RRR, s1 s2, no murmur or rub lungs - more CTA today b/l; no wheezes; no rales; better airation abd - soft NT ND BS+ ext - no edema, pulses 2+ b/l Results & Data Results & Data Vital Signs (Past 12 Hours) Vital Signs Temp Pulse Pulse Pulse Resp BP Pulse Ox 07/15/24 16:12 75 07/15/24 15:05 79 18 93 07/15/24 15:03 36.8 C 79 16 147/75 H 93 07/15/24 14:59 07/15/24 11:46 36.7 C 70 16 143/74 H 93 07/15/24 11:16 81 18 96 07/15/24 08:00 65 07/15/24 07:58 71 18 92 07/15/24 07:41 36.7 C 68 18 147/76 H 94 Pulse Ox O2 Del Method 07/15/24 16:12 07/15/24 15:05 Room Air 07/15/24 15:03 Room Air 07/15/24 14:59 93 07/15/24 11:46 Room Air 07/15/24 11:16 Room Air 07/15/24 08:00 07/15/24 07:58 Room Air 07/15/24 07:41 Room Air Laboratory Results Laboratory Results 07/14/24 07/14/24 07/15/24 08:10 08:15 05:46 WBC 6.07 6.25 RBC 4.79 4.78 Hgb 13.9 L 14.0 Hct 39.3 L 39.3 L MCV 82.0 82.2 MCH 29.0 29.3 MCHC 35.4 35.6 RDW Std Deviation 39.7 40.2 RDW Coeff of [place] 13.2 13.4 Plt Count 134 133 MPV 11.5 11.7 Immature Gran % (Auto) 0.2 0.3 Neut % (Auto) 73.0 67.5 Lymph % (Auto) 10.7 18.4 [place] % (Auto) 15.7 13.3 Eos % (Auto) 0.2 0.3 Baso % (Auto) 0.2 0.2 Neut # (Auto) 4.44 4.22 Lymph # (Auto) 0.65 L 1.15 L [place] # (Auto) 0.95 H 0.83 H Eos # (Auto) 0.01 0.02 Baso # (Auto) 0.01 0.01 Immature Gran # (Auto) 0.01 0.02 Sodium 138 136 Potassium 3.3 L 3.7 Chloride 102 102 Carbon Dioxide 26 25 Anion Gap 10 9 BUN 12 17 Creatinine 0.82 0.95 Est Cr Clr Drug Dosing 77.6 67.0 Est GFR ( Amer) 101.7 91.7 Est GFR (Non-Af Amer) 87.7 79.1 BUN/Creatinine Ratio 14.6 17.9 Glucose 95 87 Calcium 9.0 8.8 Magnesium 1.8 AST 27 ALT 20 Total Creatine Kinase 95 Troponin I High Sens 86.4 H* D 53.8 H* D PG Care Time/CCT Total # of Minutes Spent Total Time Spent with Patient: Total time spent is greater than 50% in coordination of care (as documented) at patient's floor/unit and/or counseling patient: Coding Level of Care Code 90543 SUB INP/OBS CARE MIN Diagnoses COVID-19 U07.1 Fall W19.XXXA Sinus pause I45.5 Cognitive decline R41.89 Chest pain R07.9 Diarrhea R19.7 S/P CABG x 3 Z95.1 Hypomagnesemia E83.42 Hypokalemia E87.6
[2024-07-15] MEDS: REMDESIVIR 100 MG in SODIUM CHLORIDE 0.9% 230 ML IV SCH (20:40)
[2024-07-16 06:23] LABS: Calcium 8.7 mg/dl (8.6-10.3); Creatinine Clr Calc Pharmacy 71.5 ml/min; Est GFR (African American) 98.3 ml/min; Est GFR (Non-African American) 84.8 ml/min; Potassium 3.9 mmol/L (3.5-5.1)
--- NOTE | 2024-07-16 17:52 | Hospitalist Progress Note ---
Date of Service July 16, 2024 Assessment & Plan (1) COVID-19: Plan: likely day 4-5 of his illness improving albeit slowly no hypoxia, but sats are low-normal at times in the lower 90s CTA chest obtained due to long-distance plane travel, his c/o chest tightness /discomfort, and COVID illness - negative for PE or pneumonia in light of his age, comorbidities, etc he is at high risk of disease progression thus, started Remdesivir daily - day #3 today ast/alt wnl defer on steroids for now but low threshold to add dexamethasone if any clinical worsening from pulmonary standpoint for cough/wheeze - cont albuterol, tessalon, mucinex cont flutter valve & incentive joanne (2) Fall: Plan: Unwitnessed fall on the morning of 07/13 CPK checked - normal Suspect he developed weakness in the setting of his COVID infection can't rule out syncope or arrhythmia contributing to the fall given the sinus pause seen on tele earlier in the stay Fortunately no apparent injuries from the fall PT, OT evals recommending rehab post-d/c he is not terribly interested in this; his will speak with him about it (3) Sinus pause: Plan: 5 seconds seen on tele 07/14/24 AM no obvious symptoms cont tele hold beta amanda echo with normal EF and anatomy low threshold for cardiology evaluation if any additional pauses at minimum would advise extended monitoring post-discharge to see if he is having these on regular basis thus far no additional pauses (4) Cognitive decline: Plan: Per , patient has had cognitive decline since September 2023 (5) Chest pain: Plan: echo with preserved eF and normal LV wall motion CTA chest w/o PE or pneumonia initial troponin was 31, rising to 86, then falling the elevated troponin is likely demand ischemia in setting of COVID infection although EKG shows anterior T wave inversions these are chronic doubt ACS (6) Diarrhea: Plan: Diarrhea x 1 day by report Stool BioFire + for EPEC Defer antibiotics (such as azithromycin or fluoroquinolones) for now since GI symptoms are mild at most and EPEC is typically self-limiting Diarrhea could also be from COVID itself Monitor carefully (7) S/P CABG x 3: Plan: Continue aspirin, statin, amlodipine, imdur, ARB Records indicate CABG involved FUENTES to LAD, SVG to OM1, and atretic JHONY to ramus Last cath [address] Dominik Gaston - Impression: 1. Severe CAD involving left main and LAD. 2. Widely patent FUENTES to LAD and SVG to circumflex. 3. Dilated/aneursymal ostial/proximal circumflex/OM1. 4. No aortic stenosis. 5. Normal left-sided filling pressure. Plan: 1. Images were reviewed with Dr. Chery of interventional cardiology. Due to th e dilated/aneurysmal portion of the ostial/proximal circumflex/high OM1, medical therapy was recommended rather than proceeding with PCI attempt of LMCA. If chest symptoms persist or recur will have low threshold for cardiology eval (8) Hypomagnesemia: Plan: Repleted resolved (9) Hypokalemia: Plan: Repleted resolved Plan DVT PPx: Lovenox 40 mg SQ q24h updated by phone extensively 07/14 PM and again this evening, 07/16 dispo - rehab advised Admission and Anticipated Discharge Date Admission Date: July 13, 2024 Subjective pt with ongoing fatigue and weakness ongoing cough no sputum eating better no dyspnea or LEÓN no fevers tele - no pauses overnight Review of Systems Review of Systems: cv - no orthopnea, no chest pain, no edema pulm - no dyspnea GI - no diarrhea today Physical Exam Physical Exam: gen - lying in bed, no distress, looks better but still coughing neck - no JVD mouth - MMM voice - hoarse heart - RRR, s1 s2, no murmur or rub lungs - CTA b/l; no wheezes; no rales abd - soft NT ND BS+ ext - no edema, pulses 2+ b/l Results & Data Results & Data Vital Signs (Past 12 Hours) Vital Signs Temp Pulse Pulse Pulse Resp BP Pulse Ox 07/16/24 16:20 36.6 C 85 17 114/69 91 07/16/24 15:00 07/16/24 14:00 88 07/16/24 11:44 36.8 C 85 18 103/64 91 07/16/24 11:17 90 18 93 07/16/24 08:21 36.9 C 98 H 18 147/80 H 91 07/16/24 08:00 78 07/16/24 07:25 81 18 90 Pulse Ox O2 Del Method O2 Del Method 07/16/24 16:20 Room Air 07/16/24 15:00 95 Room Air 07/16/24 14:00 07/16/24 11:44 Room Air 07/16/24 11:17 Room Air 07/16/24 08:21 Room Air 07/16/24 08:00 07/16/24 07:25 Room Air Laboratory Results Laboratory Results - last 24 hr 07/16/24 05:37 Sodium 137 Potassium 3.9 Chloride 104 Carbon Dioxide 24 Anion Gap 9 BUN 16 Creatinine 0.89 Est Cr Clr Drug Dosing 71.5 Est GFR ( Amer) 98.3 Est GFR (Non-Af Amer) 84.8 BUN/Creatinine Ratio 18.0 Glucose 98 Calcium 8.7 AST 29 ALT 20 PG Care Time/CCT Total # of Minutes Spent Total Time Spent with Patient: Total time spent is greater than 50% in coordination of care (as documented) at patient's floor/unit and/or counseling patient: Coding Level of Care Code 58586 SUB INP/OBS CARE 2/35MIN Diagnoses COVID-19 U07.1 Fall W19.XXXA Sinus pause I45.5 Cognitive decline R41.89 Chest pain R07.9 Diarrhea R19.7 S/P CABG x 3 Z95.1 Hypomagnesemia E83.42 Hypokalemia E87.6
[2024-07-16] MEDS: ALBUTEROL HFA 8 GM INHALER INH SCH (20:04)
[2024-07-17 10:12] LABS: BUN Creatinine Ratio 18.6 (10-20); Creatinine Clr Calc Pharmacy 65.6 ml/min; Est GFR (African American) 89.4 ml/min; Est GFR (Non-African American) 77.1 ml/min; Potassium 4.3 mmol/L (3.5-5.1)
--- NOTE | 2024-07-17 19:18 | Hospitalist Progress Note ---
Date of Service July 17, 2024 Assessment & Plan (1) COVID-19: Plan: likely day 5-6 of his illness improving no hypoxia, but sats are low-normal at times in the lower 90s CTA chest obtained due to long-distance plane travel, his c/o chest tightness/discomfort, and COVID illness - negative for PE or pneumonia in light of his age, comorbidities, etc he was at high risk of disease progression thus, started Remdesivir daily - day #4 today; plan 5 days then stop ast/alt wnl defer on steroids for cough/wheeze - cont albuterol, tessalon, mucinex cont flutter valve & incentive joanne (2) Fall: Plan: Unwitnessed fall on the morning of 07/13 CPK checked - normal Suspect he developed weakness in the setting of his COVID infection can't rule out syncope or arrhythmia contributing to the fall given the sinus pause seen on tele earlier in the stay Fortunately no apparent injuries from the fall PT, OT evals recommending rehab post-d/c referral made to [facility] (3) Sinus pause: Plan: 5 seconds seen on tele 07/14/24 AM no obvious symptoms holding beta amanda echo with normal EF and anatomy low threshold for cardiology evaluation if any additional pauses thus far no additional pauses just completed a 2-week event monitor in March 2024 - no pauses seen on that event monitor consider repeat monitoring post-d/c with respect to beta amanda -- consider resumption albeit cautiously and at a much lower dose (4) Cognitive decline: Plan: Per , patient has had cognitive decline since September 2023 (5) Chest pain: Plan: had such hospital day #1 echo with preserved eF and normal LV wall motion CTA chest w/o PE or pneumonia initial troponin was 31, rising to 86, then falling the elevated troponin was likely demand ischemia in setting of COVID infection although EKG shows anterior T wave inversions these are chronic doubt ACS (6) Diarrhea: Plan: Diarrhea x 1 day by report Stool BioFire + for EPEC Deferred antibiotics (azithromycin or fluoroquinolones) since GI symptoms were mild at most and EPEC is typically self-limiting Diarrhea could also be from COVID itself Monitor carefully (7) S/P CABG x 3: Plan: Continue aspirin, statin, amlodipine, imdur, ARB Records indicate CABG involved FUENTES to LAD, SVG to OM1, and atretic JHONY to ramus Last cath [address] Dominik Gaston - Impression: 1. Severe CAD involving left main and LAD. 2. Widely patent FUENTES to LAD and SVG to circumflex. 3. Dilated/aneursymal ostial/proximal circumflex/OM1. 4. No aortic stenosis. 5. Normal left-sided filling pressure. Plan: 1. Images were reviewed with Dr. Chery of interventional cardiology. Due to the dilated/aneurysmal portion of the ostial/proximal circumflex/high OM1, medical therapy was recommended rather than proceeding with PCI attempt of LMCA. If chest symptoms persist or recur will have low threshold for cardiology eval (8) Hypomagnesemia: Plan: Repleted resolved (9) Hypokalemia: Plan: Repleted resolved can stop K supplement BID resume his usual dose of 20meq every other day Plan DVT PPx: Lovenox 40 mg SQ q24h updated by phone extensively 07/14 PM and again 07/16 dispo - rehab at [facility] Admission and Anticipated Discharge Date Admission Date: July 13, 2024 Subjective no events tele - NSR, NO PAUSES; no arrhythmia feeling better overall still weak, but improving cough improving eating well he IS agreeable to rehab Review of Systems Review of Systems: gen - no fevers or chills cv - no chest pains, no orthopnea pulm - no dyspnea at rest; mild LEÓN Physical Exam Physical Exam: gen - lying in bed, no distress, NAD neck - no JVD mouth - MMM voice - hoarse heart - RRR, s1 s2, no murmur or rub lungs - CTA b/l; no wheezes; no rales abd - soft NT ND BS+ ext - no edema, pulses 2+ b/l Results & Data Results & Data Vital Signs (Past 12 Hours) Vital Signs Temp Pulse Pulse Resp BP Pulse Ox O2 Del Method 07/17/24 15:23 36.5 C 74 16 127/77 96 Room Air 07/17/24 15:18 87 07/17/24 11:10 36.6 C 76 16 106/70 93 Room Air 07/17/24 08:20 36.8 C 79 16 157/85 H 96 Room Air 07/17/24 08:19 84 94 Room Air Laboratory Results Laboratory Results - last 24 hr 07/17/24 09:13 Sodium 138 Potassium 4.3 Chloride 105 Carbon Dioxide 25 Anion Gap 8 BUN 18 Creatinine 0.97 Est Cr Clr Drug Dosing 65.6 Est GFR ( Amer) 89.4 Est GFR (Non-Af Amer) 77.1 BUN/Creatinine Ratio 18.6 Glucose 110 H Calcium 9.0 AST 28 ALT 25 PG Care Time/CCT Total # of Minutes Spent Total Time Spent with Patient: Total time spent is greater than 50% in coordination of care (as documented) at patient's floor/unit and/or counseling patient: Coding Level of Care Code 08140 SUB INP/OBS CARE 2/35MIN Diagnoses COVID-19 U07.1 Fall W19.XXXA Sinus pause I45.5 Cognitive decline R41.89 Chest pain R07.9 Diarrhea R19.7 S/P CABG x 3 Z95.1 Hypomagnesemia E83.42 Hypokalemia E87.6
[2024-07-18 07:48] VITALS: RESP 16; O2SAT 97
[2024-07-18 08:28] VITALS: TEMP 97.7
[2024-07-18 09:50] VITALS: BP 147/84; PULSE 90
--- NOTE | 2024-07-18 09:52 | Discharge Summary ---
Discharge Summary Date of Service July 18, 2024 Principal Dx & Hospital Course #1 = Principal Diagnosis (1) COVID-19: no hypoxia, but sats were low-normal at times in the lower 90s CTA chest obtained due to long-distance plane travel, his c/o chest tigh tness/discomfort, and COVID illness - negative for PE or pneumonia completed treatment with 5 days of remdesivir for cough/wheeze - cont albuterol, tessalon, mucinex cont flutter valve & incentive joanne (2) Fall: Unwitnessed fall on the morning of 07/13 CPK checked - normal Suspect he developed weakness in the setting of his COVID infection can't rule out syncope or arrhythmia contributing to the fall given the sinus pause seen on tele earlier in the stay Fortunately no apparent injuries from the fall PT, OT evals recommending rehab post-d/c referral made to [facility] (3) Sinus pause: 5 seconds seen on tele 07/14/24 AM no obvious symptoms held beta amanda, no further pauses echo with normal EF and anatomy just completed a 2-week event monitor in March 2024 - no pauses seen on that event monitor Reduced metoprolol XL from 200 mg daily --> 50 mg. Monitor heart rate. (4) Cognitive decline: Per , patient has had cognitive decline since September 2023 (5) Chest pain: had such hospital day #1 echo with preserved eF and normal LV wall motion CTA chest w/o PE or pneumonia initial troponin was 31, rising to 86, then falling the elevated troponin was likely demand ischemia in setting of COVID infection although EKG shows anterior T wave inversions these are chronic doubt ACS (6) Diarrhea: Diarrhea x 1 day by report Stool [employer] + for EPEC Deferred antibiotics (azithromycin or fluoroquinolones) since GI symptoms were mild at most and EPEC is typically self-limiting Diarrhea could also be from COVID itself resolved persistent/recurrent stop mag oxide (7) S/P CABG x 3: Continue aspirin, statin, amlodipine, imdur, ARB Records indicate CABG involved FUENTES to LAD, SVG to OM1, and atretic JHONY to ramus Last cath [address] Dominik Gaston - Impression: 1. Severe CAD involving left main and LAD. 2. Widely patent FUENTES to LAD and SVG to circumflex. 3. Dilated/aneursymal ostial/proximal circumflex/OM1. 4. No aortic stenosis. 5. Normal left-sided filling pressure. Plan: 1. Images were reviewed with Dr. Chery of interventional cardiology. Due to the dilated/aneurysmal portion of the ostial/proximal circumflex/high OM1, medical therapy was recommended rather than proceeding with PCI attempt of LMCA. (8) Hypomagnesemia: Repleted resolved mag oxide (9) Hypokalemia: Repleted resolved resume his usual dose of 20meq every other day Plan updated in person 07/18 dispo - rehab at [facility] Notes For Next Care Provider Medication Changes From Visit decreased metoprolol because of long sinus pause Admission HPI Per Admitting Provider Isaac is a 74-year-old male with PMH of glaucoma, dyslipidemia, CAD s/p CABG x 3, HTN, exertional angina, and syncope. He presented on 07/13 for an unwitnessed fall this morning. Patient is a poor historian at time of admission, and reports that he does not remember falling. When asked why he was brought in the hospital, he says "I guess I fell". He denies head strike, but is unsure. He does report he has been dizzy/lightheaded recently. Patient will occasionally stare blankly and not respond to questioning. He did did not take his temperature at home, but does endorse feeling hot/sweaty last night. He denies prior episodes of COVID, but does report he is immunized x 2. Not on blood thinners. Both he and his recently got back from [place], and tested positive for COVID. At time of admission, patient endorses chest pain that started several hours ago. He describes it as a "throbbing" pain that is i ntermittent; rates it 5/10 at present. While he says it does radiate, he is unable to identify where it radiates. Patient did not take any pain medicine before coming into the hospital. He did not take his regular morning medications today; patient's helps to manage his medications at home. Patient is hypertensive in 151/60 at time admission; vitals otherwise stable. ED course: NSS 500 mL IV ROS: Patient endorses fever, dizziness, lightheadedness, headache, chest pain, mild pleuritic CP, diarrhea (started this morning), Patient denies changes in vision (blurry vision/double vision), changes in taste/smell/hearing, SOB, cough, hemoptysis, abdominal pain, N/V, burning with urination, or blood in the urine/stool. Spoke to patient's /POA (Sandi) on the phone who provided additional history. reports that the patient did not take his regular morning medications today; no recent change in medications, but she reports they have been tweaking the amlodipine dosage due to history of low blood pressure. She reports that the patient has had changes in cognitive baseline ever since September 2023 (he is currently following with neurology). He regularly has episodes of 5 to 10 minutes of blank staring and confusion. This is not new for him. However this morning when the patient woke up, he was unable to figure out how to put on his pants. reports no slurred speech, facial droop, unilateral deficits. No history of stroke or seizures. The patient then went out to make coffee in the kitchen and experienced an unwitnessed fall. heard a "crash" and went to check on him. Patient denied head strike and had no LOC. However he was unable to talk after this event, and was unable to stand on his own. Both the patient and the patient's reports they just traveled back from [place] recently and have both tested positive for COVID. reports that she is his power of attorney general medical emergency and does have paperwork to that effect. She reconfirms that he is DNR/DNI. Discharge Exam PHYSICAL EXAMINATION Last 24h vital signs reviewed, see documentation in flowsheet General: comfortable appearing, no distress HEENT: Normocephalic, atraumatic, pupils round and equal, sclerae anicteric, no conjunctival injection, moist mucus membranes Lungs: Normal respiratory effort. Clear to auscultation bilaterally. No RRW Heart: Regular rate and rhythm, no murmurs. No JVD Abdomen: Soft, nontender, nondistended. Bowel sounds present. Extremities: Warm, dry, well-perfused. No extremity edema. Neuro: Alert and oriented x hospital and situation though vague historian, face symmetric, moves 4 extremities well Psych: Normal affect and behavior Discharge Plan Discharge Items Patient Disposition: Transfer Inpatient Rehab Fac Reason For Visit: SYNCOPE,COVID Discharge Diagnosis: COVID-19, acute diarrhea Activity: Per Instructions section Weightbearing: Full weightbearing Non-emergency contact: Primary Care Provider Call non-emergency contact if: you have any medication questions, your symptoms worsen and you have a fever Follow-up/Referrals: Pk Saeed DO [Primary Care Provider] - Diet: Regular Addtl Attending Provider Instructions: PT and OT evaluate and treat COVID-19 not hypoxic completed 5 day course of remdesivir Metoprolol dose reduced because of sinus pause Pending Studies at Discharge: No Stand-Alone Forms: My [facility] Skilled Items Patient informed of condition?: Yes DNR: Yes Discharge Level of Care: Acute rehab Communicable Disease: Yes Discharge Prognosis: Improving Lines: None Urinary Catheter: No Medications and DC Order Prescriptions: New albuterol sulfate [Ventolin HFA] 90 mcg/actuation Hfa Aerosol Inhaler 2 puff inhalation Q4H PRN (Reason: shortness of breath or wheezing) Qty: 0 0RF metoprolol succinate [Toprol XL] 50 mg tablet extended release 24 hr 50 mg PO DAILY Qty: 1 0RF acetaminophen 325 mg Tablet 650 mg PO Q4H PRNQty: 0 0RF magnesium oxide 400 mg (241.3 mg magnesium) Tablet 400 mg PO BID Qty: 0 0RF benzonatate 100 mg Capsule 100 mg PO TID Qty: 0 0RF guaifenesin [Mucinex] 600 mg Tablet Extended Release 12hr 1,200 mg PO Q12 Qty: 0 0RF Continued omeprazole 40 mg capsule,delayed release(DR/EC) 40 mg PO HS Qty: 90 3RF potassium chloride 20 mEq tablet extended release 20 meq PO Q2D Qty: 90 3RF ketoconazole 2 % cream 1 applic topical UD Qty: 30 2RF Rx Instructions: 1 applic topically to feet 2-3 nights weekly for maintenance. nitroglycerin 0.4 mg tablet, sublingual 0.4 mg sublingual Q5M PRN (Reason: chest pain) Qty: 20 3RF Rx Instructions: do not exceed 3 doses per episode cyanocobalamin (vitamin B-12) 1,000 mcg capsule 1,000 mcg PO DAILY Qty: 30 5RF losartan 100 mg tablet 100 mg PO QAM Qty: 90 3RF fexofenadine [Blanca Allergy] 180 mg tablet 180 mg PO QAM Probiotic Digest Supp (6-strn) 10 billion cell -100 mg capsule 1 cap PO QAM aspirin [Adult Low Dose Aspirin] 81 mg tablet,delayed release (DR/EC) 81 mg PO QAM multivitamin [Daily Multi-Vitamin] Tablet 1 tab PO QAM amlodipine 5 mg tablet 7.5 mg PO DAILY Qty: 45 2RF isosorbide mononitrate 60 mg tablet extended release 24 hr 30 mg PO QAM atorvastatin 80 mg tablet 80 mg PO HS amoxicillin 500 mg tablet 2,000 mg PO UD PRN (Reason: procedures) Rx Instructions: 4 tabs 1 hour prior to procedure Discontinued metoprolol succinate 200 mg tablet extended release 24 hr 200 mg PO QAM Qty: 90 3RF Discharge Orders: Discharge Order (Routine); Ordered 07/18/24 Ordered By: Steffany Ortiz Admission Data Admit Date/Time: 07/13/24 13:09 Attending Provider: Steffany Ortiz Admit Provider: Dewey Duenas Primary Care Provider: Pk Saeed Other Providers: Dewey Duenas; [facility] Other Interventions: Discharge Summary Assessment (RN) Last Done: 07/18/24 09:48 Hospital Stay Data Consultations 07/13/24 11:55 ED Decision to Admit Stat Diagnostic Imagining Performed 07/13/24 10:25 CT head/brain wo con Stat 07/14/24 17:27 CT angio chest PE protocol Urgent Pending Results Patient Have Any Pending Studies at Discharge: No Discharge Instructions Given to Patient (Per Discharging Provider) PT and OT evaluate and treat COVID-19 not hypoxic completed 5 day course of remdesivir Metoprolol dose reduced because of sinus pause Total Time Total Time Spent Total Time Spent (In Minutes): I personally spent: 35 minutes today on clinical care activities including: reviewing chart notes and vital signs reviewing labs reviewing studies discussion with home health caregiver examining and counseling the patient counseling the patient's family writing orders writing prescriptions, discharge instructions documentation Coding Level of Care Code 21590 INP/OBS DISCH >30 MIN Diagnoses COVID-19 U07.1 Fall W19.XXXA Sinus pause I45.5 Cognitive decline R41.89 Chest pain R07.9 Diarrhea R19.7 S/P CABG x 3 Z95.1 Hypomagnesemia E83.42 Hypokalemia E87.6
== END 2024-07-18 10:49 | DRG 178 ==
LOC: ED 09:50 → SUATTDRO 13:09 → 2W 13:09

== ENCOUNTER 2025-07-23 12:16 | Inpatient (IN) ==
--- NOTE | 2025-07-23 12:40 | Emergency Department Note ---
Impression & Plan Acute confusion, Multiple fractures of ribs, Arterial stenosis, Hypertension, Syncope and collapse ED Provider Note HISTORY OF PRESENT ILLNESS: Patient is a 75-year-old male presenting after syncopal episode and with confusion. Patient presents from the . Where he was apparently having lunch with his family and he passed out. Family states he was only out for a few seconds and they were able to get him to the bathroom, but the patient was acting very confused, prompting them to call 911. On arrival to the ER, the patient is able to say he is at the hospital but is very slow to answer any questions and does not answer most questions. He denies any complaints at this time, but again he does not answer questions well. He is on a baby aspirin daily. Fingerstick was in the 140s for EMS prehospital. Patient reportedly fell a little over a week ago and has ecchymosis to his right shoulder. No reported fall today. ROS: as above PHYSICAL EXAM: Constitutional: Patient appears in no acute distress. HENT: Head: Normocephalic and atraumatic. Eyes: EOMI, PERRL Mouth/Throat: Mucous membranes moist. Neck: Trachea midline. Neck supple. Cardiovascular: RRR, No murmurs, rubs or gallops. Intact distal pulses. Pulmonary/Chest: No respiratory distress. Breath sounds clear and equal bilaterally. No wheezes or rales. No chest wall tenderness to palpation. Abdominal: Abdomen soft, no tenderness, rebound or guarding. Back: No midline spinal tenderness, no paraspinal tenderness, no CVA tenderness. Musculoskeletal: No edema, tenderness or deformity noted. Old appearing ecchymosis to the anterior right shoulder and upper chest wall. Skin: Warm and dry. No rash, erythema, pallor or cyanosis Psychiatric: Appropriate mood and affect for situation. Neurological: Alert. CN II-XII grossly intact, moving all extremities equally and fully. MDM: - Vitals signs showed hypertension - History obtained via EMS, given patient's confusion. History as above. - Chronic conditions affecting care: CAD (s/p PCI and CABG); HTN; HLD - Differential diagnoses include, but are not limited to: CVA; intracranial hemorrhage; ACS; electrolyte abnormality; pneumonia; dysrhythmia; UTI - Order placed for continuous cardiac monitoring. At this time, monitor showed rate of 65 bpm with normal sinus rhythm, per my interpretation. - External medical records reviewed. Primary care visit note dated 07/04/2025 was reviewed. Patient was seen in clinic for his hypertension and memory issues. His blood pressure is well-regulated per the documentation in the 120s systolic. He is on metoprolol 50 mg, amlodipine 2.5 mg, losartan and isosorbide mononitrate. - EKG image interpreted by myself showed normal sinus rhythm. Rate 62 bpm. QT 448. No acute ischemic changes. - Laboratory workup interpreted by myself showed normal WBC; normal PT/INR; stable electrolytes; normal AST/ALT; normal CK; normal troponin; normal TSH; normal lipase - CXR image reviewed and interpreted by myself is negative for acute pathology. - UA negative for infection - CT head wo contrast negative for acute pathology. - CTA head/neck showed basilar artery with moderate narrowing proximally and severe focal narrowing distally to the left vertebral artery. Also noted to have severe multifocal stenosis in the extra- and intracranial portions of the left vertebral artery. Severe stenosis of the proximal right inferior cerebral artery. - CTA chest negative for PE but noted to have anterior acute right-sided rib fractures of ribs 2 and 3 and additional acute nondisplaced fracture of the anterior right 4th and 5th ribs. - Patient still has not returned to his neurological baseline at this time. Given his extensive narrowing of his vertebral arteries, still concern for potential CVA even though CT imaging does not show any obvious pathology. As he is not at his neurological baseline, will admit to hospital service for further workup, including MRI of the brain. - Discussion was had with pillowcase sewer about patient's case and need for admission - Hospitalist consulted for admission at 15:06. Recommended aspirin and plavix be ordered for patient. - 253 mg PO aspirin (As patient took 81 mg ASA this AM) and 300 mg plavix ordered. - [facility] ASSESSMENT AND PLAN: Diagnosis: Acute confusion; multiple rib fractures; arterial stenosis; syncope and collapse; hypertension Plan: admit Past Med/Surg History Problem List (Updated 07/23/25 @ 15:08 by Deonna Meredith MD) Syncope and collapse (Acute) Hypertension (Acute) Arterial stenosis (Acute) Multiple fractures of ribs (Acute) Acute confusion (Acute) Urinary urgency Cognitive impairment Confusion Pain in shoulder region after shoulder replacement CAD (coronary artery disease) s/p 3 vessel CABG 2016- (FUENTES to LAD; JHONY to RI but graft was atretic on repeat cath; SVG to OM) Hypertension S/P CABG x 3 (Acute) 2014 @ [facility] in [place], [place] Exertional angina Dyspnea on exertion Dyslipidemia (Chronic) GERD (gastroesophageal reflux disease) Well controlled and stable Prediabetes Presumed- Hgb A1C 6.1 on 08/10/23 Hagan's esophagus (~2009) Follows with GI, Last EGD 11/2023 History of prostatectomy (~2013) Prostate cancer (Chronic) diagnosed 2009--s/p prostatectomy only, Followed by Urology Glaucoma Follows routinely with eye docotr DDD (degenerative disc disease), lumbar Cognitive decline Pancreatic cyst (~2020) 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) per GI, repeat MRI in 2 years Vitamin B12 deficiency Balance disorder Medical History Voice hoarseness Dizziness Headache Constipation Chronic headaches Loss of taste COVID Surgical History History of biopsy Status post reverse total replacement of right shoulder (~09/2023) History of reverse total replacement of right shoulder joint History of bilateral cataract extraction History of esophagogastroduodenoscopy (EGD) History of colonoscopy History of open reduction and internal fixation (ORIF) procedure History of left knee surgery History of biopsy History of prostate biopsy History of tonsillectomy and adenoidectomy History of eye surgery History of cardiac cath History of wisdom tooth extraction History of inguinal hernia repair Family History Brother Myocardial infarction Hypertension Mother Stomach cancer Hypertension Gallbladder disease Stroke Father Hypertension Alzheimer disease Brother Medical history unknown Sister Medical history unknown Sister Medical history unknown Son No problems noted. Daughter Multiple sclerosis Other No family history of adverse response to anesthesia Denies family history of Ovarian cancer Prostate cancer Breast cancer Colorectal cancer Social History Smoking Status: Former smoker Tobacco Type: Cigarettes Age Started Using Tobacco: 23; Age Quit Using Tobacco: 36; packs per day: 1; Cigarettes Per Day: Smoked x 13 yrs; Second Hand Exposure: No; Do You Dip or Chew Tobacco: No; Hx Alcohol Use: No Hx Substance Use: No Preferred Language: Japanese Communication Ability: Effective Visual Impairment: Limited Hearing Ability: Hard of Hearing Milking System Installer Required: No Beliefs That Will Affect Care: None marital status: Current Living Situation: Spouse current occupational status: retired 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 How many Children do You have: 2 Feels Safe at Home: Yes Childhood Exposure to Second-Hand Smoke: Yes Diet: regular caffeine: Yes (coffee ) during the past year weight has: decreased > 10 lbs Dental Care, Regularly: Yes Physical Activity Frequency: 3-4 Times per Week Physical Activity Frequency Comment: walking Seatbelt Use: always Sunscreen Use: No Do you think of yourself as: straight/heterosexual Assistive Devices: Glasses Allergies Allergies Allergy/AdvReac Type Severity Reaction Status Date / Time No Known Drug Allergies Allergy Verified 07/05/25 11:08 Home Meds Home Medications Medication Instructions Recorded Confirmed aspirin 81 mg tablet,delayed 81 mg PO QAM 06/14/20 07/05/25 release (Adult Low Dose Aspirin) multivitamin (Daily Multi-Vitamin 1 tab PO QAM 06/14/20 07/05/25 tablet) L.acid,bul,para,rham-B.anim,long 1 cap PO QAM 08/04/22 07/05/25 10 billion cell-inulin 100 mg capsule (Probitoic Digestive Support (6 strain)) fexofenadine 180 mg tablet 180 mg PO QAM 08/04/22 07/05/25 (Blanca Allergy) loperamide 2 mg capsule (Imodium 2 mg PO Q4H PRN Diarrhea 04/23/25 07/05/25 A-D) metoprolol succinate 50 mg 50 mg PO DAILY 07/04/25 07/05/25 tablet,extended release 24 hr (Toprol XL) amlodipine 5 mg tablet 5 mg PO QAM 07/05/25 07/05/25 Previous Rx's Medication Instructions Recorded acetaminophen 325 mg tablet 650 mg (2 x 325 mg) PO Q4H PRN #0 07/18/24 tabs atorvastatin 80 mg tablet 80 mg PO HS #90 tabs 10/27/24 isosorbide mononitrate 60 mg 30 mg (1/2 x 60 mg) PO QAM 90 days 12/25/24 tablet,extended release 24 hr #45 tabs ketoconazole 2 % topical cream 1 applic topical UD #30 grams 01/21/25 omeprazole 40 mg capsule,delayed 40 mg PO HS barretts esophagus #90 02/07/25 release caps potassium chloride 20 mEq 20 meq PO Q2D #90 tabs 05/14/25 tablet,extended release nitroglycerin 0.4 mg sublingual 0.4 mg sublingual Q5M PRN chest 06/04/25 tablet pain #7 tabs losartan 100 mg tablet 100 mg PO QAM #90 tabs 07/23/25 Results & Data (ED) Vital Signs Vital Signs - 24 hr 07/23/25 12:37 07/23/25 12:43 07/23/25 13:04 Temperature 36.9 C Temperature Source Oral Pulse Rate - Lying Pulse Rate - Sitting Pulse Rate - Standing Pulse Rate 62 66 Pulse Rate [Apical] 66 Respiratory Rate 17 19 Respiratory Effort / Characteristics Non-Labored Accessory Muscle Use Non-Labored Spontaneous Respiratory Depth Normal Normal Blood Pressure - Lying Blood Pressure - Sitting Blood Pressure- Standing Blood Pressure 199/86 H Blood Pressure [Right Arm] 198/74 H Blood Pressure Mean 123 Blood Pressure Mean [Right Arm] 115 Blood Pressure Position Semi-fowlers Blood Pressure Position [Right Arm] Semi-fowlers Pulse Oximetry 96 95 Oxygen Delivery Method Room Air Room Air Sepsis Recent Fever Within 48 Hours No Sepsis New/Unexplained Change in Mental Status N/A Sepsis Action Taken by Nursing No Action Required 07/23/25 13:17 07/23/25 13:17 07/23/25 14:19 Temperature Temperature Source Pulse Rate - Lying 74 Pulse Rate - Sitting 77 Pulse Rate - Standing 94 H Pulse Rate 65 Pulse Rate [Apical] Respiratory Rate 19 Respiratory Effort / Characteristics Respiratory Depth Blood Pressure - Lying 163/82 H Blood Pressure - Sitting 175/96 H Blood Pressure- Standing 204/103 H Blood Pressure Blood Pressure [Right Arm] Blood Pressure Mean Blood Pressure Mean [Right Arm] Blood Pressure Position Blood Pressure Position [Right Arm] Pulse Oximetry 94 94 Oxygen Delivery Method Room Air Room Air Sepsis Recent Fever Within 48 Hours Sepsis New/Unexplained Change in Mental Status Sepsis Action Taken by Nursing Laboratory Data 07/23/25 12:38 07/23/25 12:38 Lab Results 07/23/25 07/23/25 07/23/25 Range/Units 12:38 12:40 13:47 WBC 7.60 (4.8-10.8) K/ul RBC 4.57 L (4.70-6.10) M/uL Hgb 13.7 L (14.0-18.0) g/dl POC Hgb 13.6 L (14.0-18.0) g/dl Hct 39.3 L (42.0-52.0) % POC Hct 40 L (42-52) % MCV 86.0 (80.0-100.0) fL MCH 30.0 (25.0-34.0) pg MCHC 34.9 (32.0-36.0) g/dL RDW Std Deviation 39.2 (36.4-46.3) fL RDW Coeff of [place] 12.7 (11.5-14.5) % Plt Count 202 (130-400) K/uL MPV 10.3 (9.4-12.4) fL Immature Gran % (Auto) 0.5 % Neut % (Auto) 79.4 % Lymph % (Auto) 11.2 % [place] % (Auto) 6.7 % Eos % (Auto) 1.8 % Baso % (Auto) 0.4 % Neut # (Auto) 6.03 (1.40-6.50) K/uL Lymph # (Auto) 0.85 L (1.20-3.40) K/uL [place] # (Auto) 0.51 (0.11-0.59) K/uL Eos # (Auto) 0.14 (0.00-0.50) K/uL Baso # (Auto) 0.03 (0.00-0.20) K/uL Immature Gran # (Auto) 0.04 (0.01-0.20) K/uL PT 11.0 (9.0-12.0) Seconds INR 1.0 (0.9-1.1) POC Sodium 142 (135-144) mmol/L Sodium 141 (136-145) mmol/L POC Potassium 3.9 (3.3-5.0) mmol/L Potassium 3.9 (3.5-5.1) mmol/L POC Chloride 103 (101-112) mmol/L Chloride 104 (98-107) mmol/L Carbon Dioxide 28 (21-32) mmol/L POC Total CO2 26 (24-31) mmol/L Anion Gap 9 (3-11) POC Anion Gap 18.0 (16-25) mmol/L POC BUN 21 H (7-18) mg/dl BUN 20 (6-23) mg/dl Creatinine 1.02 (0.6-1.4) mg/dl POC Creatinine 1.1 (0.6-1.3) mg/dl Est Cr Clr Drug Dosing Not Reportable eGFR 77.12 BUN/Creatinine Ratio 19.6 (10-20) Glucose 165 H (70-99(Fasting)) mg/dl POC Glucose (other) 165 H (70-99) mg/dl Calcium 9.9 (8.6-10.3) mg/dl POC Ioniz Calcium Tu 1.24 (1.12-1.32) mmol/l Magnesium 1.8 (1.7-2.4) mg/dl Total Bilirubin 0.7 (0.2-1.0) mg/dl AST 22 (13-39) U/L ALT 43 (7-52) U/L Alkaline Phosphatase 133 H (34-104) U/L Total Creatine Kinase 30 (30-223) U/L Troponin I High Sens 18.9 (0-20) pg/ml Total Protein 7.4 (6.0-8.3) gm/dl Albumin 4.3 (3.4-5.0) gm/dl Globulin 3.1 (2.5-4.0) gm/dl Albumin/Globulin Ratio 1.4 (0.9-2) Lipase 15 (11-82) U/L TSH 1.841 (0.300-4.500) uIu/ml Urine Color Yellow Urine Appearance Clear (Clear) Urine pH 7.0 (4.5-7.5) Ur Specific [place] > 1.045 H (1.000-1.030) Urine Protein Negative (Negative) Urine Glucose (UA) Negative (Negative) Urine Ketones Negative (Negative) Urine Blood Negative (Negative) Urine Nitrite Negative (Negative) Urine Bilirubin Negative (Negative) Urine Urobilinogen Negative (Negative) Ur Leukocyte Esterase Negative (Negative) Urine Comment Administered Medications Discontinued Medications Ioversol (Optiray 320 125ml) 94 ml IV ONCE ONE Stop: 07/23/25 13:06 Last Admin: 07/23/25 13:06 Dose: 94 ml Documented By: [facility] Imaging Data Radiologist's Impression: Chest CTA 07/23/25 12:37 CT angio chest PE protocol HISTORY: 75 years-old Male with PE. Acute shortness of breath with syncope TECHNIQUE: Multiple CTA images of the chest were obtained after the intravenous administration of 118 ml Optiray. Coronal and sagittal MIPS were obtained from the axial data set and were submitted for review. All measurements were obtained according to NASCET criteria. A dose lowering technique was utilized adhering to the principles of ALARA. COMPARISON: Chest CT 02/05/2025 FINDINGS: CTA: Mild cardiomegaly. Prior median sternotomy with CABG. Extensive [place] coronary artery calcifications. No thoracic aortic aneurysm or dissection. No pulmonary emboli identified. CT CHEST: No dominant thyroid nodule is seen. No pathologically adenopathy by CT size criteria. There is no pneumothorax, pleural effusion or focal airspace consolidation. Unremarkable thyroid. No lymphadenopathy. There is no pneumothorax, pleural effusion, airspace consolidation or pulmonary edema. There are no suspicious pulmonary nodules or masses. Mild bronchial wall thickening. Central airways are patent. Small to moderate hiatal hernia. No acute upper abdominal abnormality. Soft tissues are within normal limits. Right shoulder arthroplasty. Acute minimally displaced fractures of the anterior right second and third ribs with probable additional acute nondisplaced fractures of the anterior right fourth and fifth ribs. IMPRESSION: 1. Acute anterior right-sided rib fractures. 2. No pneumothorax. ACT 112: Negative or not required by law. The above report was generated using voice recognition software. It may contain grammatical, syntax or spelling errors. Electronically signed by: Jose Smith M.D. 07/23/2025 1:27 PM Chest X-Ray 07/23/25 12:37 XR chest 1V portable CLINICAL HISTORY: syncope COMPARISON STUDY: 07/05/2025 FINDINGS: Stable CABG and right shoulder prosthesis. Heart size and pulmonary vasculature are normal. No consolidation or pleural effusion. No pneumothorax. IMPRESSION: No acute findings. ACT 112: Negative or not required by law. Electronically signed by: Nikita Tiwari M.D. 07/23/2025 1:[address] 07/23/25 12:37 CT head/brain wo con CLINICAL HISTORY: 75 years-old Male with syncope. Acute syncope TECHNIQUE: Multiple axial CT images of the head were obtained without contrast. A dose lowering technique was utilized adhering to the principles of ALARA. CT DOSE: 1684.03 mGy.cm COMPARISON: CTA head of same day, brain MRI 02/23/2024. FINDINGS: No acute intracranial hemorrhage, midline shift, intracranial mass, hydrocephalus, territorial ischemia or abnormal extra-axial collection. Involutional changes with chronic microvascular ischemic disease redemonstrated. The calvarium is intact. Mild mucosal thickening of the ethmoid air cells. Prior bilateral lens repair. IMPRESSION: No acute intracranial abnormality. ACT 112: Negative or not required by law. The above report was generated using voice recognition software. It may contain grammatical, syntax or spelling errors. Electronically signed by: Jose Smith M.D. 07/23/2025 1:22 PM Head CTA 07/23/25 12:37 CT angio head w con CLINICAL HISTORY: syncope; confusion. TECHNIQUE: Unenhanced axial CT scan of the brain is performed. Subsequently, following the IV administration of 120 cc of Optiray, CT angiogram of the brain was performed from the skull base to the vertex. Images are reviewed in the axial, sagittal, and coronal planes. 3-D MIPS images are created and assessed. IV contrast was administered without complication. All measurements were obtained according to NASCET criteria. A dose lowering technique was utilized adhering to the principles of ALARA. COMPARISON STUDY: Head CT earlier today FINDINGS: Distal internal carotid arteries showed no significant narrowing. There is severe focal narrowing distally at the left vertebral artery. Distal vertebral arteries are patent. Basilar artery demonstrates moderate narrowing proximally. Basilar artery is patent. Anterior, middle, and posterior cerebral arteries are patent bilaterally. Cerebral venous sinuses opacify normally. No intracranial aneurysm seen. IMPRESSION: 1. No arterial occlusion seen in the brain. 2. Basilar artery has moderate narrowing proximally and there is severe focal narrowing distally at the left vertebral artery. ACT 112: Negative or not required by law. The above report was generated using voice recognition software. It may contain grammatical, syntax or spelling errors. Electronically signed by: Nikita Tiwari M.D. 07/23/2025 1:26 PM Neck CTA 07/23/25 12:37 CT ANGIOGRAPHY OF THE NECK WITH CONTRAST CLINICAL HISTORY: Syncope. Confusion. COMPARISON STUDY: Cervical spine CT March 29, 2021. Technique: CT angiography of the carotid and vertebral arteries was obtained using Optiray and 3D reconstruction on an independent workstation. NASCET criteria was utilized. Automated exposure control was utilized for the study. A dose lowering technique was utilized adhering to the principles of ALARA. Findings: The bilateral common carotid and cervical internal carotid arteries are patent. There is mild plaque within the right carotid bifurcation without stenosis. There is no aneurysm or dissection within the neck. There is severe short segment stenosis at the origin of the right vertebral artery. Note is made of severe multifocal stenoses within the left vertebral artery, involving the extra and intracranial segments. This includes greater than 95% stenosis at the vessel origin. There is also severe narrowing of this vessel at the C5-C6 level as well as within the intracranial portion of the left vertebral artery. CTA of the head will be reported separately. There is severe stenosis of the proximal right posterior inferior cerebellar artery. IMPRESSION: 1. Severe multifocal stenoses within the extra and intracranial portions of the left vertebral artery as described above. Severe stenosis at the origin the right vertebral artery. 2. Severe stenosis of the proximal right posterior inferior cerebellar artery. 3. No stenoses within the bilateral common carotid or cervical internal carotid arteries. ACT 112: Negative or not required by law. Electronically signed by: Aniceto Dodson M.D. 07/23/2025 1:21 PM Discharge Plan Visit Data Chief Complaint: Syncope Stated Complaint: SYNCOPE, CANCER PT ED Provider: Deonna Meredith Discharge Problem: Acute confusion, Multiple fractures of ribs, Arterial stenosis, Hypertension, Syncope and collapse Condition: Fair Forms Stand Alone Forms: [facility] Prescriptions Prescriptions: No Action loperamide [Imodium A-D] 2 mg capsule 2 mg PO Q4H PRN (Reason: Diarrhea) Rx Instructions: administer after each loose stool until symptoms controlled; do not exceed 8 mg per 24 hrs atorvastatin 80 mg tablet 80 mg PO HS Qty: 90 3RF isosorbide mononitrate 60 mg tablet extended release 24 hr 30 mg PO QAM 90 Days Qty: 45 3RF ketoconazole 2 % cream 1 applic topical UD Qty: 30 2RF Rx Instructions: 1 applic topically to feet 2-3 nights weekly for maintenance. omeprazole 40 mg capsule,delayed release(DR/EC) 40 mg PO HS Qty: 90 3RF potassium chloride 20 mEq tablet extended release 20 meq PO Q2D Qty: 90 3RF losartan 100 mg tablet 100 mg PO QAM Qty: 90 3RF fexofenadine [Blanca Allergy] 180 mg tablet 180 mg PO QAM Probiotic Digest Supp (6-strn) 10 billion cell -100 mg capsule 1 cap PO QAM aspirin [Adult Low Dose Aspirin] 81 mg tablet,delayed release (DR/EC) 81 mg PO QAM multivitamin [Daily Multi-Vitamin] Tablet 1 tab PO QAM nitroglycerin 0.4 mg tablet, sublingual 0.4 mg sublingual Q5M PRN (Reason: chest pain) Qty: 7 3RF Rx Instructions: do not exceed 3 doses per episode metoprolol succinate [Toprol XL] 50 mg tablet extended release 24 hr 50 mg PO DAILY acetaminophen 325 mg Tablet 650 mg PO Q4H PRNQty: 0 0RF amlodipine 5 mg tablet 5 mg PO QAM Referrals Referrals: Pk Saeed DO [Primary Care Provider] -
[2025-07-23 13:03] LABS: Hematocrit (blood only) 39.3 % (42.0-52.0); Hemoglobin 13.7 g/dl (14.0-18.0); Immature Granulocytes # (auto) 0.04 K/uL (0.01-0.20); Immature Granulocytes % (auto) 0.5 %; Mean Corpuscular Hemoglobin 30.0 pg (25.0-34.0); Mean Corpuscular Volume 86.0 fL (80.0-100.0); Platelet Count 202 K/uL (130-400); RDW Standard Deviation 39.2 fL (36.4-46.3); Red Blood Count 4.57 M/uL (4.70-6.10); White Blood Count 7.60 K/ul (4.8-10.8)
[2025-07-23] MEDS: OPTIRAY 320 125ml IV ONE (13:06)
--- NOTE | 2025-07-23 13:21 | XRay Report ---
XR chest 1V portable CLINICAL HISTORY: syncope COMPARISON STUDY: 07/05/2025 FINDINGS: Stable CABG and right shoulder prosthesis. Heart size and pulmonary vasculature are normal. No consolidation or pleural effusion. No pneumothorax. IMPRESSION: No acute findings. ACT 112: Negative or not required by law. Electronically signed by: Nikita Tiwari M.D. 07/23/2025 1:20 PM
[2025-07-23 13:22] LABS: Alanine Aminotransferase 43 U/L (7-52); Albumin Globulin Ratio 1.4 (0.9-2); Albumin Level 4.3 gm/dl (3.4-5.0); Alkaline Phosphatase 133 U/L (34-104); Anion Gap 9 (3-11); Bilirubin,Total 0.7 mg/dl (0.2-1.0); Blood Urea Nitrogen 20 mg/dl (6-23); Calcium 9.9 mg/dl (8.6-10.3); Carbon Dioxide 28 mmol/L (21-32); Chloride 104 mmol/L (98-107); Creatine Kinase 30 U/L (30-223); Globulin 3.1 gm/dl (2.5-4.0); Glucose 165 mg/dl (70-99(Fasting)); Lipase 15 U/L (11-82); Magnesium 1.8 mg/dl (1.7-2.4); Potassium 3.9 mmol/L (3.5-5.1); Sodium 141 mmol/L (136-145); Total Protein 7.4 gm/dl (6.0-8.3)
--- NOTE | 2025-07-23 13:23 | CT Scan Report ---
CT ANGIOGRAPHY OF THE NECK WITH CONTRAST CLINICAL HISTORY: Syncope. Confusion. COMPARISON STUDY: Cervical spine CT March 29, 2021. Technique: CT angiography of the carotid and vertebral arteries was obtained using Optiray and 3D rec onstruction on an independent workstation. NASCET criteria was utilized. Automated exposure control was utilized for the study. A dose lowering technique was utilized adhering to the principles of ALA RA. Findings: The bilateral common carotid and cervical internal carotid arteries are patent. There is mi ld plaque within the right carotid bifurcation without stenosis. There is no aneurysm or dissection w ithin the neck. There is severe short segment stenosis at the origin of the right vertebral artery. N ote is made of severe multifocal stenoses within the left vertebral artery, involving the extra and i ntracranial segments. This includes greater than 95% stenosis at the vessel origin. There is also sev ere narrowing of this vessel at the C5-C6 level as well as within the intracranial portion of the lef t vertebral artery. CTA of the head will be reported separately. There is severe stenosis of the prox imal right posterior inferior cerebellar artery. IMPRESSION: 1. Severe multifocal stenoses within the extra and intracranial portions of the left vertebral artery as described above. Severe stenosis at the origin the right vertebral artery. 2. Severe stenosis of the proximal right posterior inferior cerebellar artery. 3. No stenoses within the bilateral common carotid or cervical internal carotid arteries. ACT 112: Negative or not required by law. Electronically signed by: Aniceto Dodson M.D. 07/23/2025 1:21 PM
--- NOTE | 2025-07-23 13:23 | CT Scan Report ---
CT head/brain wo con CLINICAL HISTORY: 75 years-old Male with syncope. Acute syncope TECHNIQUE: Multiple axial CT images of the head were obtained without contrast. A dose lowering tech nique was utilized adhering to the principles of ALARA. CT DOSE: 1684.03 mGy.cm COMPARISON: CTA head of same day, brain MRI 02/23/2024. FINDINGS: No acute intracranial hemorrhage, midline shift, intracranial mass, hydrocephalus, territorial ischem ia or abnormal extra-axial collection. Involutional changes with chronic microvascular ischemic disea se redemonstrated. The calvarium is intact. Mild mucosal thickening of the ethmoid air cells. Prior bilateral lens repa ir. IMPRESSION: No acute intracranial abnormality. ACT 112: Negative or not required by law. The above report was generated using voice recognition software. It may contain grammatical, syntax o r spelling errors. Electronically signed by: Jose Smith M.D. 07/23/2025 1:22 PM
[2025-07-23 13:24] LABS: INR 1.0 (0.9-1.1); Prothrombin Time 11.0 Seconds (9.0-12.0)
--- NOTE | 2025-07-23 13:27 | CT Scan Report ---
CT angio head w con CLINICAL HISTORY: syncope; confusion. TECHNIQUE: Unenhanced axial CT scan of the brain is performed. Subsequently, following the IV adminis tration of 120 cc of Optiray, CT angiogram of the brain was performed from the skull base to the vert ex. Images are reviewed in the axial, sagittal, and coronal planes. 3-D MIPS images are created and a ssessed. IV contrast was administered without complication. All measurements were obtained according to NASCET criteria. A dose lowering technique was utilized adhering to the principles of ALARA. COMPARISON STUDY: Head CT earlier today FINDINGS: Distal internal carotid arteries showed no significant narrowing. There is severe focal josselyn rowing distally at the left vertebral artery. Distal vertebral arteries are patent. Basilar artery de monstrates moderate narrowing proximally. Basilar artery is patent. Anterior, middle, and posterior c erebral arteries are patent bilaterally. Cerebral venous sinuses opacify normally. No intracranial an eurysm seen. IMPRESSION: 1. No arterial occlusion seen in the brain. 2. Basilar artery has moderate narrowing proximally and there is severe focal narrowing distally at t he left vertebral artery. ACT 112: Negative or not required by law. The above report was generated using voice recognition software. It may contain grammatical, syntax o r spelling errors. Electronically signed by: Nikita Tiwari M.D. 07/23/2025 1:26 PM
--- NOTE | 2025-07-23 13:28 | CT Scan Report ---
CT angio chest PE protocol HISTORY: 75 years-old Male with PE. Acute shortness of breath with syncope TECHNIQUE: Multiple CTA images of the chest were obtained after the intravenous administration of 118 ml Optiray. Coronal and sagittal MIPS were obtained from the axial data set and were submitted for review. All measurements were obtained according to NASCET criteria. A dose lowering technique was u tilized adhering to the principles of ALARA. COMPARISON: Chest CT 02/05/2025 FINDINGS: CTA: Mild cardiomegaly. Prior median sternotomy with CABG. Extensive [place] coronary artery calcifications . No thoracic aortic aneurysm or dissection. No pulmonary emboli identified. CT CHEST: No dominant thyroid nodule is seen. No pathologically adenopathy by CT size criteria. There is no pn eumothorax, pleural effusion or focal airspace consolidation. Unremarkable thyroid. No lymphadenopath y. There is no pneumothorax, pleural effusion, airspace consolidation or pulmonary edema. There are n o suspicious pulmonary nodules or masses. Mild bronchial wall thickening. Central airways are patent. Small to moderate hiatal hernia. No acute upper abdominal abnormality. Soft tissues are within keisha l limits. Right shoulder arthroplasty. Acute minimally displaced fractures of the anterior right seco nd and third ribs with probable additional acute nondisplaced fractures of the anterior right fourth and fifth ribs. IMPRESSION: 1. Acute anterior right-sided rib fractures. 2. No pneumothorax. ACT 112: Negative or not required by law. The above report was generated using voice recognition software. It may contain grammatical, syntax o r spelling errors. Electronically signed by: Jose Smith M.D. 07/23/2025 1:27 PM
[2025-07-23 13:33] LABS: Thyroid Stimulating Hormone 1.841 uIu/ml (0.300-4.500)
[2025-07-23 14:00] LABS: Appearance Urine Clear (Clear); Glucose Urine UA Negative (Negative)
[2025-07-23] MEDS ORDERED: ASPIRIN CHEW 324 MG PO STA (15:05)
[2025-07-23] MEDS ORDERED: PHARMACIST DISCHARGE MED REC CONSULT PRN (15:13)
[2025-07-23] MEDS: CLOPIDOGREL BISULFATE 300 MG TAB PO STA (15:25)
[2025-07-23] MEDS: ASPIRIN CHEW 324 MG PO STA (15:38)
[2025-07-23] MEDS: THIAMINE HCL 200 MG in SODIUM CHLORIDE 0.9% 50 ML IV STA (15:40)
--- NOTE | 2025-07-23 16:45 | History & Physical Report ---
Date of Service July 23, 2025 Assessment & Plan (1) Syncope and collapse: Plan: Isaac Crandall is a 75 yo male with PMH Of CAD s/p bypass; recurrent syncope; dementia cancer, prostate cancer, pancreatic cystis, angina event. he been having multiple syncope episode and s/p EEG and echo. in the past, he's was having low BP, lightheadness, and his amlodipine was held and then restarted on 07/23/2025,at 11:30am, he's was having syncope event, incontinence and AMS at restaurant, he did not regain mental status in 10-15 minutes and brought to our ED his CTA found carotid stenosis and he's under observation for syncope evaluation 1. acute syncope 2. AMS, urinary continence 3. intracranial stenosis, (CTA found stenosis in dylan vertebral artery and severe stenosis of the proximal right posterior inferior cerebellar artery) 4. former smoker (quitted 30 years ago) 5. memory impairment 6. CAD s/p bypass surgery 7. prostate cancer 8. pancreatic cysts 1. acute syncope he's has syncope, AMS, incontinence CTA found stenosis in the vertebral artery and severe stenosis in the proximal right posterior inferior cerebellar artery f/u on brain MRI, aspirin and plavix, statin PT and OT evaluation orthostatic BP 2. AMS, urinary incontinence f/u on EEG, on interview at 4:25pm, he's regain consciousness, AAox3 3. intracranial stenosis s/p CTA head and neck neurology evaluation avoid dropping BP below 140/90 4. memory impairment was advised to f/u with sleep medicine for home sleep studies 5. CAD s/p bypass surgery at [facility] 10-15 years ago lipitor 80mg, aspirin 81mg, isosorbide monoitrate 30mg (half tablet of 60mg) metoprolol XL 25mg daily 6. hypertension he's on amlodipine 5mg, losartan 100mg daily 7. b12 deficiency 8. hx of prostate cancer, he's no longer on leuprolide 225mg s/p lap prostectomy on oct 16, 2010, (Dr. Vitaly Larson) at [facility] ([facility]) 02/14/2025, started on androgen deprivation 05/11/2025, s/p completion of salvage radiation therapy. family update, updatedd at bedside (2) Arterial stenosis: (3) Acute confusion: History of Present Illness Chief Complaint: syncope episode at 10am urinary incontinence CTA found carotid stenosis AMS Primary Care Provider: Pk Saeed DO Mr. Isaac Mccracken is a 75 yo male with pMH Of dementia, CAD, prosate cancer, pancreatic cyst, hypertension, exertional angina, b12 deficiency. lumbar DDD, glaucoma. he's was following with oncology for management of prostate cancer he's been having multiple syncope episode within past few months. per his , he will have syncope episode, but that the AMS resolved in 10-15 minutes. he's has loud snoring, and AMS, but never formally evaluate for ROEL in the past, he was having low blood pressure, lightheadness, and headache, amlodipine was held and then restarted. he's often passed out while eating and that associated with nausea and vomiting on Wednesday07/23/2025, he's was eating in a restaurant, his eye rolling backward and has syncope episode. his AMS did not resolved within 10 minutes in addition. he was brought here and CTA head and neck found severe focal narrowing in the left vertebral artery and severe stenosis in dylan right vertebral artery and severe stenois of right posterior inferior cerebellar artery he will be under observation for syncope eval, including echo, brain MRI, EEG. per his , he's no longer following with oncology for prostate cancer he's due for repeat MRCP for management of pancreatic on interview at 4pm, he's is AAox3; and able to following command no babiski sign; no pronator drift; no nystagmus Allergies Allergy/AdvReac Type Severity Reaction Status Date / Time No Known Drug Allergies Allergy Verified 07/05/25 11:08 Home Medications Medication Instructions Recorded Confirmed Type aspirin 81 mg tablet,delayed 81 mg PO QAM 06/14/20 07/23/25 History release (Adult Low Dose Aspirin) multivitamin (Daily Multi-Vitamin 1 tab PO QAM 06/14/20 07/23/25 History tablet) L.acid,bul,para,rham-B.anim,long 1 cap PO QAM 08/04/22 07/23/25 History 10 billion cell-inulin 100 mg capsule (Probitoic Digestive Support (6 strain)) fexofenadine 180 mg tablet 180 mg PO QAM 08/04/22 07/23/25 History (Blanca Allergy) acetaminophen 325 mg tablet 650 mg (2 x 325 mg) PO Q4H PRN #0 07/18/24 07/23/25 Rx tabs atorvastatin 80 mg tablet 80 mg PO HS #90 tabs 10/27/24 07/23/25 Rx isosorbide mononitrate 60 mg 30 mg (1/2 x 60 mg) PO QAM 90 days 12/25/24 07/23/25 Rx tablet,extended release 24 hr #45 tabs ketoconazole 2 % topical cream 1 applic topical UD #30 grams 01/21/25 07/23/25 Rx omeprazole 40 mg capsule,delayed 40 mg PO HS barretts esophagus #90 02/07/25 07/23/25 Rx release caps loperamide 2 mg capsule (Imodium 2 mg PO Q4H PRN Diarrhea 04/23/25 07/23/25 History A-D) potassium chloride 20 mEq 20 meq PO Q2D #90 tabs 05/14/25 07/23/25 Rx tablet,extended release nitroglycerin 0.4 mg sublingual 0.4 mg sublingual Q5M PRN chest 06/04/25 07/23/25 Rx tablet pain #7 tabs metoprolol succinate 50 mg 50 mg PO DAILY 07/04/25 07/23/25 History tablet,extended release 24 hr (Toprol XL) amlodipine 5 mg tablet 5 mg PO QAM 07/05/25 07/23/25 History losartan 100 mg tablet 100 mg PO QAM #90 tabs 07/23/25 07/23/25 Rx Past Med/Surg History Problem List (Updated 07/23/25 @ 15:08 by Deonna Meredith MD) Syncope and collapse (Acute) Hypertension (Acute) Arterial stenosis (Acute) Multiple fractures of ribs (Acute) Acute confusion (Acute) Urinary urgency Cognitive impairment Confusion Pain in shoulder region after shoulder replacement CAD (coronary artery disease) s/p 3 vessel CABG 2016- (FUENTES to LAD; JHONY to RI but graft was atretic on re peat cath; SVG to OM) Hypertension S/P CABG x 3 (Acute) 2014 @ [facility] in [place], [place] Exertional angina Dyspnea on exertion Dyslipidemia (Chronic) GERD (gastroesophageal reflux disease) Well controlled and stable Prediabetes Presumed- Hgb A1C 6.1 on 08/10/23 Hagan's esophagus (~2009) Follows with GI, Last EGD 11/2023 History of prostatectomy (~2013) Prostate cancer (Chronic) diagnosed 2009--s/p prostatectomy only, Followed by Urology Glaucoma Follows routinely with eye docotr DDD (degenerative disc disease), lumbar Cognitive decline Pancreatic cyst (~2020) 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) per GI, repeat MRI in 2 years Vitamin B12 deficiency Balance disorder Medical History Voice hoarseness Dizziness Headache Constipation Chronic headaches Loss of taste COVID Surgical History History of biopsy Status post reverse total replacement of right shoulder (~09/2023) History of reverse total replacement of right shoulder joint History of bilateral cataract extraction History of esophagogastroduodenoscopy (EGD) History of colonoscopy History of open reduction and internal fixation (ORIF) procedure History of left knee surgery History of biopsy History of prostate biopsy History of tonsillectomy and adenoidectomy History of eye surgery History of cardiac cath History of wisdom tooth extraction History of inguinal hernia repair Family History Brother Myocardial infarction Hypertension Mother Stomach cancer Hypertension Gallbladder disease Stroke Father Hypertension Alzheimer disease Brother Medical history unknown Sister Medical history unknown Sister Medical history unknown Son No problems noted. Daughter Multiple sclerosis Other No family history of adverse response to anesthesia Denies family history of Ovarian cancer Prostate cancer Breast cancer Colorectal cancer Social History Smoking Status: Former smoker Tobacco Type: Cigarettes Age Started Using Tobacco: 23; Age Quit Using Tobacco: 36; packs per day: 1; Cigarettes Per Day: Smoked x 13 yrs; Second Hand Exposure: No; Do You Dip or Chew Tobacco: No; Hx Alcohol Use: No Hx Substance Use: No Preferred Language: Latvian Communication Ability: Effective Visual Impairment: Limited Hearing Ability: Hard of Hearing Sous Chef Required: No Beliefs That Will Affect Care: None marital status: Current Living Situation: Spouse current occupational status: retired 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 How many Children do You have: 2 Feels Safe at Home: Yes Childhood Exposure to Second-Hand Smoke: Yes Diet: regular caffeine: Yes (coffee ) during the past year weight has: decreased > 10 lbs Dental Care, Regularly: Yes Physical Activity Frequency: 3-4 Times per Week Physical Activity Frequency Comment: walking Seatbelt Use: always Sunscreen Use: No Do you think of yourself as: straight/heterosexual Assistive Devices: Glasses Review of Systems Review of Systems: Constitutional: No Weight Change, No Fever, No Chills, No Night Sweats, No Fatigue, No Malaise ENT/Mouth: no loud snoring Cardiovascular: No Chest Pain, No SOB, No PND, No Dyspnea on Exertion, No Orthopnea, No Claudication + for hx of CAD Respiratory: No Cough, No Sputum, No Wheezing, No Smoke Exposure, No Dyspnea Gastrointestinal: No Nausea, No Vomiting, No Diarrhea, No Constipation, No Pain, No Heartburn, No Anorexia, No Dysphagia, No Hematochezia, No Melena, No Flatulence, No Jaundice Neuro: + for memory issue; + for syncope; no headache; no current dizziness; no numbness Psych: + for snoring; Physical Exam Physical Exam: VITALS: Reviewed. WEIGHT/BMI reviewed. GEN: Healthy appearing, well-developed, NAD. -Head: NC/AT; -Eyes: PERRL, EOMI. No discharge or redn ess; Neuro: AAOx3; inattentive; no babiski sign; no pronator drift; normal finger to nose; 5/5 strength; no tremor no facial droop; following simple command NECK: Supple, with no masses. CV: RRR, no m/r/g. LUNGS: CTAB, no w/r/c. ABD: Soft, NT/ND, NBS, no masses or organomegaly. SKIN: Warm, well perfused. No skin rashes or abnormal lesions. MSK: No deformities, Normal gait. EXT: No clubbing, cyanosis, or edema. Results & Data Results & Data Vital Signs (Past 12 Hours) Vital Signs Temp Pulse Pulse Resp BP BP Pulse Ox 07/23/25 15:28 67 16 161/89 H 95 07/23/25 13:17 65 19 94 07/23/25 13:17 94 07/23/25 13:04 66 19 198/74 H 95 07/23/25 12:43 66 07/23/25 12:37 36.9 C 62 17 199/86 H 96 O2 Del Method 07/23/25 15:28 Room Air 07/23/25 13:17 Room Air 07/23/25 13:17 Room Air 07/23/25 13:04 Room Air 07/23/25 12:43 07/23/25 12:37 Room Air Laboratory Results Laboratory Results - last 72 hr 07/23/25 07/23/25 07/23/25 12:38 12:40 13:47 WBC 7.60 RBC 4.57 L Hgb 13.7 L POC Hgb 13.6 L Hct 39.3 L POC Hct 40 L MCV 86.0 MCH 30.0 MCHC 34.9 RDW Std Deviation 39.2 RDW Coeff of Pino 12.7 Plt Count 202 MPV 10.3 Immature Gran % (Auto) 0.5 Neut % (Auto) 79.4 Lymph % (Auto) 11.2 [place] % (Auto) 6.7 Eos % (Auto) 1.8 Baso % (Auto) 0.4 Neut # (Auto) 6.03 Lymph # (Auto) 0.85 L [place] # (Auto) 0.51 Eos # (Auto) 0.14 Baso # (Auto) 0.03 Immature Gran # (Auto) 0.04 PT 11.0 INR 1.0 POC Sodium 142 Sodium 141 POC Potassium 3.9 Potassium 3.9 POC Chloride 103 Chloride 104 Carbon Dioxide 28 POC Total CO2 26 Anion Gap 9 POC Anion Gap 18.0 POC BUN 21 H BUN 20 Creatinine 1.02 POC Creatinine 1.1 Est Cr Clr Drug Dosing Not Reportable eGFR 77.12 BUN/Creatinine Ratio 19.6 Glucose 165 H POC Glucose (other) 165 H Calcium 9.9 POC Ioniz Calcium Tu 1.24 Magnesium 1.8 Total Bilirubin 0.7 AST 22 ALT 43 Alkaline Phosphatase 133 H Total Creatine Kinase 30 Troponin I High Sens 18.9 Total Protein 7.4 Albumin 4.3 Globulin 3.1 Albumin/Globulin Ratio 1.4 Lipase 15 TSH 1.841 Urine Color Yellow Urine Appearance Clear Urine pH 7.0 Ur Specific [place] > 1.045 H Urine Protein Negative Urine Glucose (UA) Negative Urine Ketones Negative Urine Blood Negative Urine Nitrite Negative Urine Bilirubin Negative Urine Urobilinogen Negative Ur Leukocyte Esterase Negative Urine Comment Diagnostic Findings Chest CTA 07/23/25 12:37 CT angio chest PE protocol HISTORY: 75 years-old Male with PE. Acute shortness of breath with syncope TECHNIQUE: Multiple CTA images of the chest were obtained after the intravenous administration of 118 ml Optiray. Coronal and sagittal MIPS were obtained from the axial data set and were submitted for review. All measurements were obtained according to NASCET criteria. A dose lowering technique was utilized adhering to the principles of ALARA. COMPARISON: Chest CT 02/05/2025 FINDINGS: CTA: Mild cardiomegaly. Prior median sternotomy with CABG. Extensive [place] coronary artery calcifications. No thoracic aortic aneurysm or dissection. No pulmonary emboli identified. CT CHEST: No dominant thyroid nodule is seen. No pathologically adenopathy by CT size criteria. There is no pneumothorax, pleural effusion or focal airspace consolidation. Unremarkable thyroid. No lymphadenopathy. There is no pneumothorax, pleural effusion, airspace consolidation or pulmonary edema. There are no suspicious pulmonary nodules or masses. Mild bronchial wall thickening. Central airways are patent. Small to moderate hiatal hernia. No acute upper abdominal abnormality. Soft tissues are within normal limits. Right shoulder arthroplasty. Acute minimally displaced fractures of the anterior right second and third ribs with probable additional acute nondisplaced fractures of the anterior right fourth and fifth ribs. IMPRESSION: 1. Acute anterior right-sided rib fractures. 2. No pneumothorax. ACT 112: Negative or not required by law. The above report was generated using voice recognition software. It may contain grammatical, syntax or spelling errors. Electronically signed by: Jose Smith M.D. 07/23/2025 1:27 PM Chest X-Ray 07/23/25 12:37 XR chest 1V portable CLINICAL HISTORY: syncope COMPARISON STUDY: 07/05/2025 FINDINGS: Stable CABG and right shoulder prosthesis. Heart size and pulmonary vasculature are normal. No consolidation or pleural effusion. No pneumothorax. IMPRESSION: No acute findings. ACT 112: Negative or not required by law. Electronically signed by: Nikita Tiwari M.D. 07/23/2025 1:[address] 07/23/25 12:37 CT head/brain wo con CLINICAL HISTORY: 75 years-old Male with syncope. Acute syncope TECHNIQUE: Multiple axial CT images of the head were obtained without contrast. A dose lowering technique was utilized adhering to the principles of ALARA. CT DOSE: 1684.03 mGy.cm COMPARISON: CTA head of same day, brain MRI 02/23/2024. FINDINGS: No acute intracranial hemorrhage, midline shift, intracranial mass, hydrocephalus, territorial ischemia or abnormal extra-axial collection. Involutional changes with chronic microvascular ischemic disease redemonstrated. The calvarium is intact. Mild mucosal thickening of the ethmoid air cells. Prior bilateral lens repair. IMPRESSION: No acute intracranial abnormality. ACT 112: Negative or not required by law. The above report was generated using voice recognition software. It may contain grammatical, syntax or spelling errors. Electronically signed by: Jose Smith M.D. 07/23/2025 1:22 PM Head CTA 07/23/25 12:37 CT angio head w con CLINICAL HISTORY: syncope; confusion. TECHNIQUE: Unenhanced axial CT scan of the brain is performed. Subsequently, following the IV administration of 120 cc of Optiray, CT angiogram of the brain was performed from the skull base to the vertex. Images are reviewed in the axial, sagittal, and coronal planes. 3-D MIPS images are created and assessed. I V contrast was administered without complication. All measurements were obtained according to NASCET criteria. A dose lowering technique was utilized adhering to the principles of ALARA. COMPARISON STUDY: Head CT earlier today FINDINGS: Distal internal carotid arteries showed no significant narrowing. There is severe focal narrowing distally at the left vertebral artery. Distal vertebral arteries are patent. Basilar artery demonstrates moderate narrowing proximally. Basilar artery is patent. Anterior, middle, and posterior cerebral arteries are patent bilaterally. Cerebral venous sinuses opacify normally. No intracranial aneurysm seen. IMPRESSION: 1. No arterial occlusion seen in the brain. 2. Basilar artery has moderate narrowing proximally and there is severe focal narrowing distally at the left vertebral artery. ACT 112: Negative or not required by law. The above report was generated using voice recognition software. It may contain grammatical, syntax or spelling errors. Electronically signed by: Nikita Tiwari M.D. 07/23/2025 1:26 PM Neck CTA 07/23/25 12:37 CT ANGIOGRAPHY OF THE NECK WITH CONTRAST CLINICAL HISTORY: Syncope. Confusion. COMPARISON STUDY: Cervical spine CT March 29, 2021. Technique: CT angiography of the carotid and vertebral arteries was obtained using Optiray and 3D reconstruction on an independent workstation. NASCET criteria was utilized. Automated exposure control was utilized for the study. A dose lowering technique was utilized adhering to the principles of ALARA. Findings: The bilateral common carotid and cervical internal carotid arteries are patent. There is mild plaque within the right carotid bifurcation without stenosis. There is no aneurysm or dissection within the neck. There is severe short segment stenosis at the origin of the right vertebral artery. Note is made of severe multifocal stenoses within the left vertebral artery, involving the extra and intracranial segments. This includes greater than 95% stenosis at the vessel origin. There is also severe narrowing of this vessel at the C5-C6 level as well as within the intracranial portion of the left vertebral artery. CTA of the head will be reported separately. There is severe stenosis of the proximal right posterior inferior cerebellar artery. IMPRESSION: 1. Severe multifocal stenoses within the extra and intracranial portions of the left vertebral artery as described above. Severe stenosis at the origin the right vertebral artery. 2. Severe stenosis of the proximal right posterior inferior cerebellar artery. 3. No stenoses within the bilateral common carotid or cervical internal carotid arteries. ACT 112: Negative or not required by law. Electronically signed by: Aniceto Dodson M.D. 07/23/2025 1:21 PM Medications Administered Current Inpatient Medications Heparin Sodium (Porcine) (Heparin Sod 5,000 Unit/0.5 Ml Vial) 5,000 units SQ Q8 [facility] Stop: 08/23/25 09:59 Miscellaneous Information (Pharmacist Discharge Med Rec Consult) 1 each N/A UD PRN PRN Reason: Consult Stop: 08/22/25 15:12 Code Status & VTE Plan VTE Prophylaxis Plan VTE Prophylaxis will be ordered: Yes PG Care Time/CCT Total # of Minutes Spent Total Time Spent with Patient: Total time spent is greater than 50% in coordination of care (as documented) at patient's floor/unit and/or counseling patient: Coding Level of Care Code 19132 INT INP/OBS CARE 2/55MIN Diagnoses Syncope and collapse R55 Arterial stenosis I77.1 Acute confusion R41.0 Time Spent (min) 45
[2025-07-23] MEDS ORDERED: LOPERAMIDE HCL 2 MG CAP PO PRN (17:33)
[2025-07-23] MEDS: GADOBUTROL 65ML VIAL IV ONE (17:43)
--- NOTE | 2025-07-23 18:19 | Magnetic Resonance Report ---
MRI of the brain performed with and without IV contrast History: Loss of consciousness Comparison: 06/09/2025 Technique: Multiplanar T1 weighted, axial T2/FLAIR, and susceptibility images were obtained without intravenous contrast. Following intravenous gadolinium based contrast administration, axial T2 weighted, diffusion, and T1-weighted images were obtained. Findings: No evidence for intracranial mass lesion, mass-effect, midline shift, or abnormal extra-axial fluid collection. Postcontrast images demonstrate no abnormal intracranial enhancement. The orbits are grossly unremarkable. The ventricles and sulci are within normal limits for age. Mild chronic microvascular ischemic changes. No abnormally reduced diffusion or evidence for acute infarct. Normal intravascular flow voids. Impression: Normal brain MRI with and without IV contrast Electronically signed by Francois Alas 07-23-2025 6:19 PM
[2025-07-23] MEDS: POTASSIUM CHLORIDE CRTAB 20 MEQ TABCR PO SCH (19:12)
[2025-07-23] MEDS ORDERED: KETOCONAZOLE 2% CR 15 GM TUBE EXT PRN (21:00)
[2025-07-23] MEDS: ATORVASTATIN 40 MG TAB PO SCH (21:56)
[2025-07-24 07:44] LABS: Hematocrit (blood only) 35.6 % (42.0-52.0); Hemoglobin 12.7 g/dl (14.0-18.0); Immature Granulocytes # (auto) 0.03 K/uL (0.01-0.20); Immature Granulocytes % (auto) 0.6 %; Mean Corpuscular Hemoglobin 30.8 pg (25.0-34.0); Mean Corpuscular Volume 86.2 fL (80.0-100.0); Platelet Count 187 K/uL (130-400); RDW Standard Deviation 39.7 fL (36.4-46.3); Red Blood Count 4.13 M/uL (4.70-6.10); White Blood Count 5.20 K/ul (4.8-10.8)
[2025-07-24 08:07] LABS: Anion Gap 7.0 (3-11); Blood Urea Nitrogen 22.0 mg/dl (6-23); Calcium 9.6 mg/dl (8.6-10.3); Carbon Dioxide 28.0 mmol/L (21-32); Chloride 107.0 mmol/L (98-107); Cholesterol 110.0 mg/dl (0-200); Creatinine Clr Calc Pharmacy 80.4 ml/min; Glucose 119.0 mg/dl (70-99(Fasting)); HDL Cholesterol 38.0 mg/dl; Potassium 3.7 mmol/L (3.5-5.1); Sodium 142.0 mmol/L (136-145); Triglycerides 116.0 mg/dl (0-150)
[2025-07-24 08:46] LABS: Hemoglobin A1C 5.7 % (4.5-5.6)
[2025-07-24] MEDS: METOPROLOL SUCC 50MG EXT REL TAB PO SCH (08:56)
[2025-07-24] MEDS: ADVANCED PROBIOTIC 625 MG CAPSULE PO SCH (08:56)
[2025-07-24] MEDS: MULTIVITAMIN TAB PO SCH (08:56)
[2025-07-24] MEDS: FEXOFENADINE HCL 180 MG TAB PO SCH (08:56)
[2025-07-24] MEDS: ASPIRIN 81 MG ECTAB PO SCH (08:56)
[2025-07-24] MEDS: ISOSORBIDE MONO EXTENDED REL 30 MG TABCR PO SCH (08:56)
--- NOTE | 2025-07-24 09:23 | XCELERA ---
[id number]
--- NOTE | 2025-07-24 09:50 | Electrocardiogram Report ---
Test Reason : Blood Pressure : */* mmHG Vent. Rate : 62 BPM Atrial Rate : 62 BPM P-R Int : 154 ms QRS Dur : 94 ms QT Int : 448 ms P-R-T Axes : 50 35 78 degrees QTcB Int : 454 ms Normal sinus rhythm RSR' or QR pattern in V1 suggests right ventricular conduction delay Nonspecific ST and T wave abnormality Abnormal ECG When compared with ECG of 05-Jul-2025 08:57, Criteria for Inferior infarct are no longer Present ST elevation now present in Inferior leads T wave inversion no longer evident in Inferior leads Confirmed by Jalen Sparrow ([id number]) on 07/24/2025 9:50:02 AM Referred By: REFERRED SELF Confirmed By: Jalen Sparrow
[2025-07-24] MEDS: ACETAMINOPHEN 325 MG TAB PO PRN (11:11)
[2025-07-24] MEDS: HEPARIN SOD 5,000 UNIT/0.5 ML VIAL SQ SCH (11:12)
[2025-07-24 11:15] VITALS: TEMP 97.5
[2025-07-24] MEDS: REGADENOSON 0.4 MG/5 ML SYR IV ONE (11:57)
--- NOTE | 2025-07-24 15:25 | Hospitalist Progress Note ---
Date of Service July 24, 2025 Assessment & Plan (1) Syncope and collapse: Plan: Isaac Crandall is a 75 yo male with PMH Of CAD s/p bypass; recurrent syncope; dementia cancer, prostate cancer, pancreatic cystis, angina event. he been having multiple syncope episode and s/p EEG and echo. in the past, he's was having low BP, lightheadness, and his amlodipine was held and then restarted on 07/23/2025,at 11:30am, he's was having syncope event, incontinence and AMS at restaurant, he did not regain mental status in 10-15 minutes and brought to our ED his CTA found carotid stenosis and he's under observation for syncope evaluation 1. acute syncope 2. AMS, urinary continence 3. intracranial stenosis, (CTA found stenosis in dylan vertebral artery and severe stenosis of the proximal right posterior inferior cerebellar artery) 4. former smoker (quitted 30 years ago) 5. memory impairment 6. CAD s/p bypass surgery 7. prostate cancer 8. pancreatic cysts 1. acute syncope he's has syncope, AMS, incontinence CTA found stenosis in the vertebral artery and severe stenosis in the proximal right posterior inferior cerebellar artery brain MRI negative for stroke aspirin and plavix, statin PT and OT evaluation orthostatic BP 2. AMS, urinary incontinence no EEG available today at bedside on 07/24/2025, stated AMS return to baseline 3. intracranial stenosis s/p CTA head and neck neurology evaluation avoid dropping BP below 140/90 4. memory impairment was advised to f/u with sleep medicine for home sleep studies was advised about setting up appointment with home sleep studies 5. CAD s/p bypass surgery at [facility] 10-15 years ago lipitor 80mg, aspirin 81mg, isosorbide monoitrate 30mg (half tablet of 60mg) metoprolol XL 25mg daily 6. hypertension he's on amlodipine 5mg, losartan 100mg daily 7. b12 deficiency 8. hx of prostate cancer, he's no longer on leuprolide 225mg s/p lap prostectomy on oct 16, 2010, (Dr. Vitaly Larson) at [facility] ([facility]) 02/14/2025, started on androgen deprivation 05/11/2025, s/p completion of salvage radiation therapy. family update, updatedd at bedside (2) Arterial stenosis: (3) Acute confusion: Admission and Anticipated Discharge Date Admission Date: July 23, 2025 Subjective he's s/p stress test this morning denied any dizziness or lightheadness informally spoke with Dr. Small about the stenosis involving PICA neuro doesn't not believe his stenosis is contributing to his syncope event at bedside; explained that his mental status is closed to baseline Physical Exam Physical Exam: VITALS: Reviewed. WEIGHT/BMI reviewed. GEN: Healthy appearing, well-developed, NAD. -Head: NC/AT; Neuro: AAOx3; no facial droop; 5/5 strength, delayed mentation. no pronator drift -Mouth and throat: MMM. Normal gums, muc artemio, palate,. Good dentition. . CV: RRR, no m/r/g. LUNGS: CTAB, no w/r/c. ABD: Soft, NT/ND, NBS, no masses or organomegaly. MSK: No deformities, Normal gait. EXT: No clubbing, cyanosis, or edema. Results & Data Results & Data Vital Signs (Past 12 Hours) Vital Signs Temp Pulse Pulse Resp BP Pulse Ox O2 Del Method 07/24/25 12:57 69 07/24/25 11:15 36.4 C L 69 18 173/81 H 94 Room Air 07/24/25 07:23 36.2 C L 63 16 167/78 H 95 Room Air 07/24/25 05:46 57 L Laboratory Results Laboratory Results - last 72 hr 07/23/25 07/23/25 07/23/25 12:38 12:40 13:47 WBC 7.60 RBC 4.57 L Hgb 13.7 L POC Hgb 13.6 L Hct 39.3 L POC Hct 40 L MCV 86.0 MCH 30.0 MCHC 34.9 RDW Std Deviation 39.2 RDW Coeff of Pino 12.7 Plt Count 202 MPV 10.3 Immature Gran % (Auto) 0.5 Neut % (Auto) 79.4 Lymph % (Auto) 11.2 [place]atte % (Auto) 6.7 Eos % (Auto) 1.8 Baso % (Auto) 0.4 Neut # (Auto) 6.03 Lymph # (Auto) 0.85 L [place]atte # (Auto) 0.51 Eos # (Auto) 0.14 Baso # (Auto) 0.03 Immature Gran # (Auto) 0.04 PT 11.0 INR 1.0 POC Sodium 142 Sodium 141 POC Potassium 3.9 Potassium 3.9 POC Chloride 103 Chloride 104 Carbon Dioxide 28 POC Total CO2 26 Anion Gap 9 POC Anion Gap 18.0 POC BUN 21 H BUN 20 Creatinine 1.02 POC Creatinine 1.1 Est Cr Clr Drug Dosing Not Reportable eGFR 77.12 BUN/Creatinine Ratio 19.6 Glucose 165 H POC Glucose (other) 165 H Estimat Average Glucose Hemoglobin A1c Calcium 9.9 POC Ioniz Calcium Tu 1.24 Magnesium 1.8 Total Bilirubin 0.7 AST 22 ALT 43 Alkaline Phosphatase 133 H Ammonia Total Creatine Kinase 30 Troponin I High Sens 18.9 Total Protein 7.4 Albumin 4.3 Globulin 3.1 Albumin/Globulin Ratio 1.4 Triglycerides Cholesterol LDL Cholesterol, Calc VLDL Cholesterol, Calc HDL Cholesterol Cholesterol/HDL Ratio Lipase 15 TSH 1.841 Cortisol AM Sample Urine Color Yellow Urine Appearance Clear Urine pH 7.0 Ur Specific [place] > 1.045 H Urine Protein Negative Urine Glucose (UA) Negative Urine Ketones Negative Urine Blood Negative Urine Nitrite Negative Urine Bilirubin Negative Urine Urobilinogen Negative Ur Leukocyte Esterase Negative Urine Comment 07/23/25 07/24/25 16:20 07:02 WBC 5.20 RBC 4.13 L Hgb 12.7 L POC Hgb Hct 35.6 L POC Hct MCV 86.2 MCH 30.8 MCHC 35.7 RDW Std Deviation 39.7 RDW Coeff of Pino 12.8 Plt Count 187 MPV 10.2 Immature Gran % (Auto) 0.6 Neut % (Auto) 77.0 Lymph % (Auto) 11.0 [place] % (Auto) 7.9 Eos % (Auto) 2.9 Baso % (Auto) 0.6 Neut # (Auto) 4.01 Lymph # (Auto) 0.57 L [place] # (Auto) 0.41 Eos # (Auto) 0.15 Baso # (Auto) 0.03 Immature Gran # (Auto) 0.03 PT INR POC Sodium Sodium 142 POC Potassium Potassium 3.7 POC Chloride Chloride 107 Carbon Dioxide 28 POC Total CO2 Anion Gap 7 POC Anion Gap POC BUN BUN 22 Creatinine 0.78 POC Creatinine Est Cr Clr Drug Dosing 80.4 eGFR 93.58 BUN/Creatinine Ratio 28.2 H Glucose 119 H POC Glucose (other) Estimat Average Glucose 117 Hemoglobin A1c 5.7 H Calcium 9.6 POC Ioniz Calcium Tu Magnesium Total Bilirubin AST ALT Alkaline Phosphatase Ammonia 30.0 Total Creatine Kinase Troponin I High Sens Total Protein Albumin Globulin Albumin/Globulin Ratio Triglycerides 116 Cholesterol 110 LDL Cholesterol, Calc 49 VLDL Cholesterol, Calc 23 HDL Cholesterol 38 Cholesterol/HDL Ratio 2.9 Lipase TSH Cortisol AM Sample 14.70 Urine Color Urine Appearance Urine pH Ur Specific [place] Urine Protein Urine Glucose (UA) Urine Ketones Urine Blood Urine Nitrite Urine Bilirubin Urine Urobilinogen Ur Leukocyte Esterase Urine Comment Medications Administered Current Inpatient Medications Acetaminophen (Acetaminophen 325 Mg Tab) 650 mg PO Q4H PRN PRN Reason: Pain Stop: 08/22/25 17:32 Last Admin: 07/24/25 11:11 Dose: 650 mg Aspirin (Aspirin 81 Mg Ectab) 81 mg PO [facility] Stop: 08/23/25 08:59 Last Admin: 07/24/25 08:56 Dose: 81 mg Atorvastatin Calcium (Atorvastatin 40 Mg Tab) 80 mg PO HS [facility] Stop: 08/22/25 20:59 Last Admin: 07/23/25 21:56 Dose: 80 mg Fexofenadine HCl (Fexofenadine Hcl 180 Mg Tab) 180 mg PO [facility] Stop: 08/23/25 08:59 Last Admin: 07/24/25 08:56 Dose: 180 mg Heparin Sodium (Porcine) (Heparin Sod 5,000 Unit/0.5 Ml Vial) 5,000 units SQ Q8 [facility] Stop: 08/23/25 09:59 Last Admin: 07/24/25 12:57 Dose: Not Given Isosorbide Mononitrate (Isosorbide [place] Extended Rel 30 Mg Tabcr) 30 mg PO [facility] Stop: 08/23/25 08:59 Last Admin: 07/24/25 08:56 Dose: 30 mg Ketoconazole (Ketoconazole 2% Cr 15 Gm Tube) 1 appln EXT MoWeFr@2100 PRN PRN Reason: PER DOSE INSTRUCTIONS Stop: 08/02/25 20:59 Lactobacillus Acidophilus (Advanced Probiotic 625 Mg Capsule) [facility] Stop: 08/23/25 08:59 Last Admin: 07/24/25 08:56 Dose: 1,250 mg Loperamide HCl (Loperamide Hcl 2 Mg Cap) 2 mg PO Q4H PRN PRN Reason: Diarrhea Stop: 08/22/25 17:32 Metoprolol Succinate (Metoprolol Succ 50mg Ext Rel Tab) 50 mg PO DAILY [facility] Stop: 08/23/25 08:59 Last Admin: 07/24/25 08:56 Dose: 50 mg Miscellaneous Information (Pharmacist Discharge Med Rec Consult) 1 each N/A UD PRN PRN Reason: Consult Stop: 08/22/25 15:12 Multivitamins (Multivitamin Tab) 1 tab PO QAM MARIBEL Stop: 08/23/25 08:59 Last Admin: 07/24/25 08:56 Dose: 1 tab Pantoprazole Sodium (Pantoprazole 40 Mg Tab) 40 mg PO HS [facility] Stop: 08/22/25 20:59 Last Admin: 07/23/25 21:56 Dose: 40 mg Potassium Chloride (Potassium Chloride Crtab 20 Meq Tabcr) 20 meq PO Q2D@0900 [facility] Stop: 08/22/25 17:32 Last Admin: 07/23/25 19:12 Dose: 20 meq PG Care Time/CCT Total # of Minutes Spent Total Time Spent with Patient: Total time spent is greater than 50% in coordination of care (as documented) at patient's floor/unit and/or counseling patient: Coding Level of Care Code 59424 SUB INP/OBS CARE 25MIN Diagnoses Syncope and collapse R55 Arterial stenosis I77.1 Acute confusion R41.0 Time Spent (min) 25
[2025-07-24] MEDS ORDERED: PEPTAMEN 1.5 CAL 1,000 ML BAG JT SCH (15:45)
[2025-07-24 15:59] VITALS: PULSE 60; RESP 16; O2SAT 92
[2025-07-24] MEDS ORDERED: STROKE PATIENT DISCHARGE STA (16:19)
[2025-07-24 16:39] VITALS: BP 152/83
--- NOTE | 2025-07-24 17:16 | Neurology Consultation ---
Date of Consultation July 24, 2025 Assessment & Plan (1) Syncope and collapse: (2) Vertebral artery stenosis: (3) Dementia: Plan 75-year-old male with a history of mild dementia, prostate cancer, post resection, androgen deprivation therapy, radiotherapy, recurrent syncope, presents with a syncopal episode that occurred while at a restaurant with his spouse, the episode occurred upon attempting to stand, lasted only a few seconds, followed by mild confusion. The episode does not seem consistent with seizure. He had a normal EEG fairly recently, does not require another EEG at this time. The episodes are either vasovagal or related to orthostatic hypotension. Cardiac arrhythmia not excluded, evaluation ongoing with [facility], may need an implanted loop recorder. He does have multifocal stenoses of the posterior circulation including both vertebral arteries, the basilar artery, and the proximal right posterior inferior cerebellar artery. There is no evidence of associated acute infarct or ischemic damage on his brain MRI. Although these multifocal posterior circulation stenoses could have a negative impact on brainstem perfusion and potentially contribute to drop attacks, there is no role for surgical intervention or stenting of these vessels. Conventional treatment consists of medical management. I think it would be reasonable to switch from aspirin 81 mg/day to Plavix 75 mg/day. I would avoid dual antiplatelet therapy, however, given his tendency for collapse and associated elevated bleeding risk with prolonged use of 2 antiplatelet medications. He should continue with atorvastatin as ordered. His lipids are appropriate, LDL currently 49, no need to change this therapy. He should be encouraged to continue to maintain adequate hydration and take his time with standing. Apart from switching the aspirin to Plavix, would consider obtaining an outpatient tilt table test. Again, he is already established with [facility] and may have had more recent mobile cardiac outpatient telemetry completed in addition to the Holter monitoring done in April. He may need an implanted loop recorder going forward. In terms of his mild dementia, he continues to live with his spouse, seems to be independent for basic ADLs, may need some assistance for instrumental or more complex ADLs. I would not start a symptomatic medication to address his cognitive impairment at this time. We can see him for a follow-up in the neurology clinic in 2 to 3 weeks after discharge for ongoing monitoring of his cognitive decline. Please call with any questions. History of Present Illness Reason for Consultation: Syncope, vertebral artery stenosis, posterior inferior cerebellar artery stenosis Requesting Physician: Saud Attending Physician: Fernando Villavicencio DO History of Present Illness The patient is a 75-year-old male with a history of recurrent syncope beginning a few years ago. He lives with his spouse, has a history of mild dementia as well. He did have an outpatient EEG completed April 27, 2025 in the context of confusion, this study was normal. He follows with [facility] cardiology as well regarding a history of CAD, CABG x 3, hypertension, dyslipidemia, exertional angina. He follows with [facility] oncology regarding a history of stage IIIb adenocarcinoma of the prostate, post prostatectomy, androgen deprivation therapy, radiotherapy. He follows with [facility] urology as well. He presented to the emergency department yesterday after a syncopal episode that occurred while out at the [employer] shop with his spouse. The episode occurred upon attempting to stand, his legs began to shake a bit, he then collapsed. The episode lasted for only a few seconds although he was a bit confused afterwards. He recalls feeling dizzy and lightheaded prior to these events. He did have cardiac event monitoring, Holter monitor, completed this past April that revealed a predominantly sinus rhythm, paroxysmal nonsustained atrial tachycardia, ventricular triplets, rare supraventricular ectopic complexes, rare PVCs. 2 reported events that occurred during normal sinus rhythm. He apparently had more prolonged cardiac monitoring completed subsequently, results not available and has been informed by his mri special procedures technologist that he may consider an implanted loop recorder going forward. CTA of the head and neck were completed. There was moderate proximal narrowing of the basilar artery and severe narrowing of the left distal vertebral artery on CTA of the head. CTA of the neck revealed severe multifocal stenoses within the left vertebral artery as well as a severe stenosis at the origin of the right vertebral artery and severe stenosis of the proximal right posterior inferior cerebellar artery. A brain MRI was completed as well. This study was negative for acute or subacute stroke, there is chronic microvascular ischemic disease and age-related atrophy. I independently reviewed these images. An up-to-date echocardiogram completed today revealed normal left ventricular systolic function, no regional wall motion abnormalities, mild concentric LVH, EF 55 to 60%, mild tricuspid regurgitation, no significant change compared with previous echo done in June 2024. I did evaluate the patient with his spouse at bedside, he seems mildly confused, at his baseline. He currently does not have any specific or focal neurological complaint, no headache, diplopia, dysarthria, dysphagia, or focal weakness of the upper or lower limbs. Allergies Allergy/AdvReac Type Severity Reaction Status Date / Time No Known Drug Allergies Allergy Verified 07/05/25 11:08 Home Medications Medication Instructions Recorded Confirmed Type aspirin 81 mg tablet,delayed 81 mg PO QAM 06/14/20 07/23/25 History release (Adult Low Dose Aspirin) multivitamin (Daily Multi-Vitamin 1 tab PO QAM 06/14/20 07/23/25 History tablet) L.acid,bul,para,rham-B.anim,long 1 cap PO QAM 08/04/22 07/23/25 History 10 billion cell-inulin 100 mg capsule (Probitoic Digestive Support (6 strain)) fexofenadine 180 mg tablet 180 mg PO QAM 08/04/22 07/23/25 History (Blanca Allergy) acetaminophen 325 mg tablet 650 mg (2 x 325 mg) PO Q4H PRN #0 07/18/24 07/23/25 Rx tabs atorvastatin 80 mg tablet 80 mg PO HS #90 tabs 10/27/24 07/23/25 Rx isosorbide mononitrate 60 mg 30 mg (1/2 x 60 mg) PO QAM 90 days 12/25/24 07/23/25 Rx tablet,extended release 24 hr #45 tabs ketoconazole 2 % topical cream 1 applic topical UD #30 grams 01/21/25 07/23/25 Rx omeprazole 40 mg capsule,delayed 40 mg PO HS barretts esophagus #90 02/07/25 07/23/25 Rx release caps loperamide 2 mg capsule (Imodium 2 mg PO Q4H PRN Diarrhea 04/23/25 07/23/25 History A-D) potassium chloride 20 mEq 20 meq PO Q2D #90 tabs 05/14/25 07/23/25 Rx tablet,extended release nitroglycerin 0.4 mg sublingual 0.4 mg sublingual Q5M PRN chest 06/04/25 07/23/25 Rx tablet pain #7 tabs metoprolol succinate 50 mg 50 mg PO DAILY 07/04/25 07/23/25 History tablet,extended release 24 hr (Toprol XL) amlodipine 5 mg tablet 5 mg PO QAM 07/05/25 07/23/25 History losartan 100 mg tablet 100 mg PO QAM #90 tabs 07/23/25 07/23/25 Rx Patient History Medical History Voice hoarseness Dizziness Headache Constipation Chronic headaches Loss of taste COVID Surgical History History of biopsy Status post reverse total replacement of right shoulder (~09/2023) History of reverse total replacement of right shoulder joint History of bilateral cataract extraction History of esophagogastroduodenoscopy (EGD) History of colonoscopy History of open reduction and internal fixation (ORIF) procedure History of left knee surgery History of biopsy History of prostate biopsy History of tonsillectomy and adenoidectomy History of eye surgery History of cardiac cath History of wisdom tooth extraction History of inguinal hernia repair Family History Brother Myocardial infarction Hypertension Mother Stomach cancer Hypertension Gallbladder disease Stroke Father Hypertension Alzheimer disease Brother Medical history unknown Sister Medical history unknown Sister Medical history unknown Son No problems noted. 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 Beliefs That Will Affect Care: None marital status: Current Living Situation: Spouse current occupational status: retired 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 How many Children do You have: 2 Feels Safe at Home: Yes Childhood Exposure to Second-Hand Smoke: Yes Diet: regular caffeine: Yes (coffee ) during the past year weight has: decreased > 10 lbs Dental Care, Regularly: Yes Physical Activity Frequency: 3-4 Times per Week Physical Activity Frequency Comment: walking Seatbelt Use: always Sunscreen Use: No Do you think of yourself as: straight/heterosexual Assistive Devices: None Review of Systems Constitutional: no fever and no chills Eyes: no blind spots and no diplopia Ear, Nose, Mouth, Throat: no hearing loss Respiratory: no dyspnea Cardiovascular: no palpitations Gastrointestinal: no nausea and no vomiting Genitourinary: no dysuria Musculoskeletal: no myalgia Integumentary: no rash Neurologic: as per Subjective / HPI, + syncope, + confusion and + memory loss; no localized weakness, no loss of sensation, no tremor(s), no abnormal movements, no headache(s) and no abnormal speech Psychiatric: no depression and no anxiety Hematologic / Lymphatic: no easy bleeding and no easy bruising Exam (Neuro) Constitutional: well developed; no acute distress Eyes: normal visual bedoya by confrontation, PERRL and EOM intact bilaterally; no nystagmus Neurologic: Oriented to:: Person and Place; negative Time Cognitive Function: negative Cognitive Speed Memory: Remote Intact; negative Short Term Intact Attention: Span Intact; negative Concentration Intact Speech Fluency: negative Dysarthria or Dysfluency Speech Aphasia: negative Aphasia Fund of Knowledge: Past History and Vocabulary Cranial Nerves: Normal II, III, IV, , V, VII, VIII, IX, X, XI and XII Motor Strength: Normal Lower Extremities and Normal Upper Extremities Motor Tone: Normal Lower Extremities and Normal Upper Extremities Muscle Bulk/Involuntary Movements: No Involuntary Movements; negative Muscle Atrophy Sensation: Light Touch Intact, Pain/Temperature Intact and Proprioception Intact Coordination: negative Dysdiadochokinesia, Finger-Nose Abnormal or Heel-Tracey Abnormal Deep Tendon Reflexes: Rt Triceps: 2+, Lt Triceps: 2+, Rt Biceps: 2+, Lt Biceps: 2+, Rt Brachioradialis: 2+, Lt Brachioradialis: 2+, Rt Patellar: 2+, Lt Patellar: 2+, Rt Ankle: 1+ and Lt Ankle: 1+ Results & Data Vital Signs (Past 12 Hours) Vital Signs Temp Pulse Pulse Resp BP BP Pulse Ox 07/24/25 16:32 36.4 C L 60 16 133/70 152/83 H 92 07/24/25 15:58 36.4 C L 60 16 133/70 92 07/24/25 12:57 69 07/24/25 11:15 36.4 C L 69 18 173/81 H 94 07/24/25 07:23 36.2 C L 63 16 167/78 H 95 07/24/25 05:46 57 L O2 Del Method 07/24/25 16:32 07/24/25 15:58 Room Air 07/24/25 12:57 07/24/25 11:15 Room Air 07/24/25 07:23 Room Air 07/24/25 05:46 Coding Level of Care Code 23047 INT INP/OBS CARE 3/75MIN Diagnoses Syncope and collapse R55 Vertebral artery stenosis I65.09 Dementia F03.90 Time Spent (min) 80 Comment Total time includes patient contact, chart review, counseling, note preparation
--- NOTE | 2025-07-24 18:40 | Discharge Summary ---
Discharge Summary Date of Service July 24, 2025 Principal Dx & Hospital Course #1 = Principal Diagnosis (1) Syncope and collapse: Hospital course Mr. Isaac Crandall is a 75 yo male with pMHO f CAD s/p bypass, recurrent syncope dementia, prostate cancer, pancraetic cysts his spouse mentioned he has loud snoring but never normally see sleep medicine for polysomnography. he' has has multiple syncope episode and s/p EEG, and echo. in the past, he wa s having low BP and lightheadness. on 07/23/2025, 11:30am, he has syncope event, incontinence and AMS, brought to our ED for evaluation his brain MRI is negative but CTA found intracranial stenosis involving both verebral artery, basilar artery and proximal right posterior inferior cerebellar artery he s/p stress test on 07/24/2025 morning his mentation status has since return to normal on 07/24/2025. he was seen by neurology and recommended switching his aspirin 81mg to plavix 75mg, however, neurology deferred dual antiplatelet therapy given his recurrent fall communicated with neurology. in addition, it was recommended that he see cardiology for potential loop records. he's was seen by PT and OT and cleared for home with home discharge his was updated at bedside for his dementia, he was recommended f/u with neurology and recommended f/u with sleep medicine specialist to rule out untreated sleep apnea. he's no longer drive. and his son is living 1-2 miles away from him Isaac Crandall is a 75 yo male with PMH Of CAD s/p bypass; recurrent syncope; dementia cancer, prostate cancer, pancreatic cystis, angina event. he been having multiple syncope episode and s/p EEG and echo. in the past, he's was having low BP, lightheadness, and his amlodipine was held and then restarted on 07/23/2025,at 11:30am, he's was having syncope event, incontinence and AMS at restaurant, he did not regain mental status in 10-15 minutes and brought to our ED his CTA found carotid stenosis and he's under observation for syncope evaluation 1. acute syncope 2. AMS, urinary continence 3. intracranial stenosis, (CTA found stenosis in dylan vertebral artery and severe stenosis of the proximal right posterior inferior cerebellar artery) 4. former smoker (quitted 30 years ago) 5. memory impairment 6. CAD s/p bypass surgery 7. prostate cancer 8. pancreatic cysts 1. acute syncope he's has syncope, AMS, incontinence CTA found stenosis in the vertebral artery and severe stenosis in the proximal right posterior inferior cerebellar artery brain MRI negative for stroke aspirin and plavix, statin PT and OT evaluation orthostatic BP 2. AMS, urinary incontinence no EEG available today at bedside on 07/24/2025, stated AMS return to baseline 3. intracranial stenosis s/p CTA head and neck neurology evaluation avoid dropping BP below 140/90 4. memory impairment was advised to f/u with sleep medicine for home sleep studies was advised about setting up appointment with home sleep studies 5. CAD s/p bypass surgery at [facility] 10-15 years ago lipitor 80mg, aspirin 81mg, isosorbide monoitrate 30mg (half tablet of 60mg) metoprolol XL 25mg daily 6. hypertension he's on amlodipine 5mg, losartan 100mg daily 7. b12 deficiency 8. hx of prostate cancer, he's no longer on leuprolide 225mg s/p lap prostectomy on oct 16, 2010, (Dr. Vitaly Larson) at [facility] ([facility]) 02/14/2025, started on androgen deprivation 05/11/2025, s/p completion of salvage radiation therapy. family update, updatedd at bedside (2) Arterial stenosis: (3) Acute confusion: Notes For Next Care Provider referral to sleep medicine specialist to r/o ROEL switching aspirin 81mg to plavix 75mg. Medication Changes From Visit aspirin 81mg dc plavix 75mg added Admission HPI Per Admitting Provider Mr. Isaac Mccracken is a 75 yo male with pMH Of dementia, CAD, prosate cancer, pancreatic cyst, hypertension, exertional angina, b12 deficiency. lumbar DDD, glaucoma. he's was following with oncology for management of prostate cancer he's been having multiple syncope episode within past few months. per his , he will have syncope episode, but that the AMS resolved in 10-15 minutes. he's has loud snoring, and AMS, but never formally evaluate for ROEL in the past, he was having low blood pressure, lightheadness, and headache, amlodipine was held and then restarted. he's often passed out while eating and that associated with nausea and vomiting on Wednesday07/23/2025, he's was eating in a restaurant, his eye rolling backward and has syncope episode. his AMS did not resolved within 10 minutes in addition. he was brought here and CTA head and neck found severe focal narrowing in the left vertebral artery and severe stenosis in dylan right vertebral artery and severe stenois of right posterior inferior cerebellar artery he will be under observation for syncope eval, including echo, brain MRI, EEG. per his , he's no longer following with oncology for prostate cancer he's due for repeat MRCP for management of pancreatic on interview at 4pm, he's is AAox3; and able to following command no babiski sign; no pronator drift; no nystagmus Discharge Exam VITALS: Reviewed. WEIGHT/BMI reviewed. GEN: Healthy appearing, well-developed, NAD. -Head: NC/AT; -Mouth and throat: MMM. Normal gums, mucosa, palate,. Good dentition. NECK: Supple, with no masses. CV: RRR, no m/r/g. LUNGS: CTAB, no w/r/c. ABD: Soft, NT/ND, NBS, no masses or organomegaly. : N/A MSK: No deformities, Normal gait. EXT: No clubbing, cyanosis, or edema. NEURO: AAox3; no tremor; no pronator drift; 5/5 strength; normal finger to nose; inattentive; delayede mentation able to hold feet against gravity for 5 seconds. Discharge Plan Discharge Items Patient Disposition: Home - Self-Care Reason For Visit: SYNCOPE Discharge Diagnosis: syncope event, encephalopathy (resolve) Condition on Discharge: Fair Activity: Per Instructions section Lifting: Gradually increase as tolerated Non-emergency contact: Primary Care Provider Call non-emergency contact if: you have any medication questions, you have a fever and your rectal temperature is above 100.4 Follow-up/Referrals: Pk Saeed DO [Primary Care Provider] - 08/06/25 11:30 am Diet: Low Sodium (2gm) Addtl Attending Provider Instructions: follow up with neurology; Dr. Pk Small follow up with cardiology Pending Studies at Discharge: Yes Studies:: event monitor; EEG Stand-Alone Forms: My Universal Ad, Smoking Cessation Medications and DC Order Prescriptions: New clopidogrel [Plavix] 75 mg tablet 75 mg PO DAILY 30 Days Qty: 30 0RF Continued loperamide [Imodium A-D] 2 mg capsule 2 mg PO Q4H PRN (Reason: Diarrhea) Rx Instructions: administer after each loose stool until symptoms controlled; do not exceed 8 mg per 24 hrs atorvastatin 80 mg tablet 80 mg PO HS Qty: 90 3RF isosorbide mononitrate 60 mg tablet extended release 24 hr 30 mg PO QAM 90 Days Qty: 45 3RF ketoconazole 2 % cream 1 applic topical UD Qty: 30 2RF Rx Instructions: 1 applic topically to feet 2-3 nights weekly for maintenance. omeprazole 40 mg capsule,delayed release(DR/EC) 40 mg PO HS Qty: 90 3RF potassium chloride 20 mEq tablet extended release 20 meq PO Q2D Qty: 90 3RF losartan 100 mg tablet 100 mg PO QAM Qty: 90 3RF fexofenadine [Blanca Allergy] 180 mg tablet 180 mg PO QAM Probiotic Digest Supp (6-strn) 10 billion cell -100 mg capsule 1 cap PO QAM multivitamin [Daily Multi-Vitamin] Tablet 1 tab PO QAM nitroglycerin 0.4 mg tablet, sublingual 0.4 mg sublingual Q5M PRN (Reason: chest pain) Qty: 7 3RF Rx Instructions: do not exceed 3 doses per episode metoprolol succinate [Toprol XL] 50 mg tablet extended release 24 hr 50 mg PO DAILY acetaminophen 325 mg Tablet 650 mg PO Q4H PRNQty: 0 0RF amlodipine 5 mg tablet 5 mg PO QAM Discontinued aspirin [Adult Low Dose Aspirin] 81 mg tablet,delayed release (DR/EC) 81 mg PO QAM Discharge Orders: Discharge Order (Routine); Ordered 07/24/25 Ordered By: Fernando Jiménez/Other Patient Handouts: Causes of Syncope Admission Data Admit Date/Time: 07/23/25 15:09 Attending Provider: Fernando Villavicencio Admit Provider: Fernando Villavicencio Primary Care Provider: Pk Saeed Other Providers: Fernando Villavicencio; Pk Small Other Interventions: Discharge Summary Assessment (RN) Last Done: 07/24/25 16:32 Hospital Stay Data Consultations 07/23/25 14:46 ED Decision to Admit Stat 07/23/25 17:53 Consult Neurology Routine Diagnostic Imagining Performed 07/23/25 12:37 CT angio chest PE protocol Stat CT head/brain wo con Stat CTA head w con [CT angio head w con] Stat CTA neck with con [CT angio neck with con] Stat 07/23/25 15:08 MRI Brain [MR brain wo/w con] Stat Pending Results Patient Have Any Pending Studies at Discharge: Yes Discharge Instructions Given to Patient (Per Discharging Provider) follow up with neurology; Dr. Pk Small follow up with cardiology Total Time Total Time Spent Total Time Spent (In Minutes): 35 Coding Level of Care Code 74476 INP/OBS DISCH >30 MIN Diagnoses Syncope and collapse R55 Arterial stenosis I77.1 Acute confusion R41.0 Time Spent (min) 35
--- NOTE | 2025-07-24 21:43 | Myocardial Perfusion Study ---
Date of Service July 24, 2025 Myocardial Perfusion Study k Myocardial Perfusion Study Report [place] Act 112: Negative ONE DAY NUCLEAR MEDICINE LEXISCAN TECHNETIUM 99M MYOCARDIAL PERFUSION SCAN Indication: Syncope. History of CAD post CABG. Baseline ECG: Normal sinus rhythm, non-specific ST flattening. Ventricular rate 70. Stress ECG: With lexiscan 0.5mm horizontal/upsloaping ST depressions in II, III, aVF and V5, V6. No arrhythmias. HR shekhar from 69 to 109 representing 74% MPHR. Peak BP 210/93 at rest, SBP down to 155 with lexiscan. Technique: For the stress portion of the study 31.2 mCi of Technetium 99m Cardiolite IV was injected at 0950 on 07/24. 30 minutes following the injection, imaging of the heart was performed in multiple projections. For the rest portion of the study, 10.9 mCi of Technetium 99m Cardiolite was injected IV at 0800. One hour following the injection, imaging of the heart was performed in the same projections. Findings: Rotating raw images were reviewed in detail. Potential sources of attenuation imaging with arms at sides, diaphragmatic attenuation, and minimal gut uptake impacting the inferior imaging border of the heart. No significant extracardiac pathologic uptake. Short axis, vertical long axis and horizontal long axis images were reviewed in detail. No visual TID. Small, mild inferolateral fixed perfusion defect most consistent with diaphragmatic attenuation. Normal LV size. EDV 51 ml. Calculated EF 59%. No regional wall motion abnormalities. SUMMARY: 1. Negative myocardial perfusion study for significant Lexiscan induced ischemia. 2. Normal LV size and function. LVEF 59% with no regional wall motion abnormalities. 3. Non-diagnostic stress ECG due to inability to reach target HR with Lexiscan. MNP Myocardial perfusion code Procedure Code Procedure 1: Myocardial Perfusion Codes: 57081 Cardiovascular Stress Test, multiple Procedure 2: Myocardial Perfusion Codes: 95558 Cardiovascular Stress Test, interpretation and report
== END 2025-07-24 17:27 | disposition home or self-care (01) | DRG 312 ==
LOC: ED 12:16 → EDINP 15:09 → 2N 17:34

== ENCOUNTER 2025-07-27 10:50 | Inpatient (IN) ==
[2025-07-27 11:42] LABS: Hematocrit (blood only) 38.0 % (42.0-52.0); Hemoglobin 13.4 g/dl (14.0-18.0); Immature Granulocytes # (auto) 0.04 K/uL (0.01-0.20); Immature Granulocytes % (auto) 0.6 %; Mean Corpuscular Hemoglobin 30.5 pg (25.0-34.0); Mean Corpuscular Volume 86.6 fL (80.0-100.0); Platelet Count 189 K/uL (130-400); RDW Standard Deviation 39.8 fL (36.4-46.3); Red Blood Count 4.39 M/uL (4.70-6.10); White Blood Count 6.69 K/ul (4.8-10.8)
--- NOTE | 2025-07-27 11:50 | XRay Report ---
XR chest 1V portable CLINICAL HISTORY: R rib fx, PNA, syncope COMPARISON STUDY: 07/23/2025 FINDINGS: Stable CABG. Heart size and pulmonary vasculature are normal. No consolidation or pleural e ffusion. No pneumothorax. Right rib fractures are stable. IMPRESSION: Stable exam. No adverse change seen. ACT 112: Negative or not required by law. Electronically signed by: Nikita Tiwari M.D. 07/27/2025 11:49 AM
[2025-07-27 12:01] LABS: Alanine Aminotransferase 32.0 U/L (7-52); Albumin Globulin Ratio 1.8 (0.9-2); Albumin Level 4.4 gm/dl (3.4-5.0); Alkaline Phosphatase 161.0 U/L (34-104); Anion Gap 7.0 (3-11); Bilirubin,Total 0.6 mg/dl (0.2-1.0); Blood Urea Nitrogen 20.0 mg/dl (6-23); Calcium 9.5 mg/dl (8.6-10.3); Carbon Dioxide 26.0 mmol/L (21-32); Chloride 106.0 mmol/L (98-107); Creatinine Clr Calc Pharmacy 73.8 ml/min; Globulin 2.5 gm/dl (2.5-4.0); Glucose 161.0 mg/dl (70-99(Fasting)); Potassium 3.7 mmol/L (3.5-5.1); Sodium 139.0 mmol/L (136-145); Total Protein 6.9 gm/dl (6.0-8.3)
--- NOTE | 2025-07-27 13:08 | Emergency Department Note ---
Impression & Plan Syncope, Adult failure to thrive, Acute confusion ED Provider Note NAME: JULIEN RIOS AGE: 75 SEX: M : 1950 ARRIVES VIA: Ambulance INFORMANT: Patient, ED PROVIDER(S): Olive Butler MD CHIEF COMPLAINT: Syncope HPI: This is a 75-year-old male presenting for syncope. Patient has had 3 episodes in the last 2.5 weeks. Patient manpreet sustained a right shoulder bruise, multiple rib fractures on the right side from these syncope/falls. He was inpatient a few days ago and had negative workup, discharged home. states that he was on the toilet today and syncopized. She caught him before he fell. He was slumped over to the right side, almost vomiting into the bathtub. He did not actually vomit. Patient did not member this episode. does mention he is been more confused lately. states has been more weak as well. ROS: See above HPI for pertinent positives & negatives. A total of 10 systems reviewed and were otherwise negative. PAST MEDICAL HISTORY: See Below PAST SURGICAL HISTORY: See Below FAMILY HISTORY: See Below SOCIAL HISTORY: See Below HOME MEDICATIONS: See Below ALLERGIES: See Below VITALS: See Below PHYSICAL EXAMINATION: General: resting comfortably in no acute distress Head: Normocephalic and atraumatic Eyes: Normal inspection, extraocular muscles intact Ear, nose, throat: Normal external exam Neck: Normal range of motion Respiratory: lungs clear to auscultation bilaterally Cardiovascular: Regular rate/rhythm, no murmur GI: soft, nontender, no guarding or rebound Extremities: nontender, moves all extremities Neuro: Awake, alert, not oriented appropriately conversive, no focal deficits, symmetric faces Skin: Warm, dry, and intact MEDICAL DECISION MAKING: This is a 75-year-old male presenting for syncope. Patient has no current neurologic deficits. He has had numerous syncopal episodes in the past 3 weeks. states with his confusion, weakness and recurrent syncope, she does not feel safe taking care of him at home. She states he has had cardiac testing which was negative. He had previous traumatic injuries including rib fractures. - Bloodwork is reviewed showing no significant leukocytosis, anemia, electrolyte or creatinine abnormality. Minimally elevated troponin - Chest Xray independently interpreted by me showing no pneumothorax, focal opacity, or pleural effusions. - Due to patient's recurrent syncope, failure to thrive at home and difficulty of family taking care of the patient, will admit the patient to hospital service Differential diagnosis: Syncope, failure to thrive, encephalopathy, UTI Independent History obtained from: Diagnostics interpreted by me: ECG: ECG independently interpreted by me with sinus rhythm rate of 62, normal HI, intraventricular conduction delay, normal QTc, no ST segment elevations consistent with STEMI criteria Cardiac Monitoring: An order was placed for continuous cardiac monitoring. The monitor shows a rate of 71 with sinus rhythm. Past Med/Surg History Problem List (Updated 07/27/25 @ 17:08 by Olive Butler MD) Acute confusion (Acute) Adult failure to thrive (Acute) Syncope (Acute) Dementia Vertebral artery stenosis Urinary urgency Cognitive impairment Confusion Pain in shoulder region after shoulder replacement CAD (coronary artery disease) s/p 3 vessel CABG 2016- (FUENTES to LAD; JHONY to RI but graft was atretic on repeat cath; SVG to OM) Hypertension S/P CABG x 3 (Acute) 2014 @ [facility] in [place], [place] Exertional angina Dyspnea on exertion Dyslipidemia (Chronic) GERD (gastroesophageal reflux disease) Well controlled and stable Prediabetes Presumed- Hgb A1C 6.1 on 08/10/23 Hagan's esophagus (~2009) Follows with GI, Last EGD 11/2023 History of prostatectomy (~2013) Prostate cancer (Chronic) diagnosed 2009--s/p prostatectomy only, Followed by Urology Glaucoma Follows routinely with eye docotr DDD (degenerative disc disease), lumbar Cognitive decline Pancreatic cyst (~2020) 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) per GI, repeat MRI in 2 years Vitamin B12 deficiency Balance disorder Medical History Voice hoarseness Dizziness Headache Constipation Chronic headaches Loss of taste COVID Surgical History History of biopsy Status post reverse total replacement of right shoulder (~09/2023) History of reverse total replacement of right shoulder joint History of bilateral cataract extraction History of esophagogastroduodenoscopy (EGD) History of colonoscopy History of open reduction and internal fixation (ORIF) procedure History of left knee surgery History of biopsy History of prostate biopsy History of tonsillectomy and adenoidectomy History of eye surgery History of cardiac cath History of wisdom tooth extraction History of inguinal hernia repair Family History Brother Myocardial infarction Hypertension Mother Stomach cancer Hypertension Gallbladder disease Stroke Father Hypertension Alzheimer disease Brother Medical history unknown Sister Medical history unknown Sister Medical history unknown Son No problems noted. Daughter Multiple sclerosis Other No family history of adverse response to anesthesia Denies family history of Ovarian cancer Prostate cancer Breast cancer Colorectal cancer Social History Smoking Status: Former smoker Tobacco Type: Cigarettes Age Started Using Tobacco: 23; Age Quit Using Tobacco: 36; packs per day: 1; Cigarettes Per Day: Smoked x 13 yrs; Second Hand Exposure: No; Do You Dip or Chew Tobacco: No; Hx Alcohol Use: No Hx Substance Use: No Preferred Language: Egyptian Communication Ability: Effective Visual Impairment: Limited Hearing Ability: Hard of Hearing Hearing Examiner Required: No Beliefs That Will Affect Care: None marital status: Current Living Situation: Parent current occupational status: retired 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 How many Children do You have: 2 Other Information That Helps Us Care for You: No Feels Safe at Home: Yes Safety Concerns: Feels Safe At This Time Childhood Exposure to Second-Hand Smoke: Yes Diet: regular caffeine: Yes (coffee ) during the past year weight has: decreased > 10 lbs Dental Care, Regularly: Yes Physical Activity Frequency: 3-4 Times per Week Physical Activity Frequency Comment: walking Seatbelt Use: always Sunscreen Use: No Do you think of yourself as: straight/heterosexual Assistive Devices: None Allergies Allergies Allergy/AdvReac Type Severity Reaction Status Date / Time No Known Drug Allergies Allergy Verified 07/05/25 11:08 Home Meds Home Medications Medication Instructions Recorded Confirmed multivitamin (Daily Multi-Vitamin 1 tab PO QAM 06/14/20 07/27/25 tablet) L.acid,bul,para,rham-B.anim,long 1 cap PO QAM 08/04/22 07/27/25 10 billion cell-inulin 100 mg capsule (Probitoic Digestive Support (6 strain)) fexofenadine 180 mg tablet 180 mg PO QAM 08/04/22 07/27/25 (Blanca Allergy) loperamide 2 mg capsule (Imodium 2 mg PO Q4H PRN Diarrhea 04/23/25 07/27/25 A-D) metoprolol succinate 50 mg 50 mg PO DAILY 07/04/25 07/27/25 tablet,extended release 24 hr (Toprol XL) amlodipine 5 mg tablet 5 mg PO QAM 07/05/25 07/27/25 magnesium oxide 400 mg PO DAILY 07/25/25 07/27/25 qunol 0 mg PO DAILY 07/25/25 07/27/25 cholecalciferol (vitamin D3) 0 mg PO DAILY 07/27/25 07/27/25 Previous Rx's Medication Instructions Recorded acetaminophen 325 mg tablet 650 mg (2 x 325 mg) PO Q4H PRN #0 07/18/24 tabs atorvastatin 80 mg tablet 80 mg PO HS #90 tabs 10/27/24 isosorbide mononitrate 60 mg 30 mg (1/2 x 60 mg) PO QAM 90 days 12/25/24 tablet,extended release 24 hr #45 tabs omeprazole 40 mg capsule,delayed 40 mg PO HS barretts esophagus #90 02/07/25 release caps potassium chloride 20 mEq 20 meq PO Q2D #90 tabs 05/14/25 tablet,extended release nitroglycerin 0.4 mg sublingual 0.4 mg sublingual Q5M PRN chest 06/04/25 tablet pain #7 tabs losartan 100 mg tablet 100 mg PO QAM #90 tabs 07/23/25 clopidogrel 75 mg tablet (Plavix) 75 mg PO DAILY 30 days #30 tabs 07/24/25 ketoconazole 2 % topical cream 1 applic topical UD #30 grams 07/27/25 Results & Data (ED) Vital Signs Vital Signs - 24 hr 07/27/25 11:03 07/27/25 11:30 07/27/25 11:59 Temperature 36.8 C Temperature Source Oral Pulse Rate 64 93 H 61 Respiratory Rate 18 16 Blood Pressure 158/76 H Blood Pressure Mean 103 Pulse Oximetry 96 96 Oxygen Delivery Method Room Air Room Air Sepsis Recent Fever Within 48 Hours No Sepsis New/Unexplained Change in Mental Status Yes Sepsis Action Taken by Nursing No Action Required Laboratory Data 07/27/25 11:05 07/27/25 11:05 Lab Results 07/27/25 07/27/25 Range/Units 11:05 13:10 WBC 6.69 (4.8-10.8) K/ul RBC 4.39 L (4.70-6.10) M/uL Hgb 13.4 L (14.0-18.0) g/dl Hct 38.0 L (42.0-52.0) % MCV 86.6 (80.0-100.0) fL MCH 30.5 (25.0-34.0) pg MCHC 35.3 (32.0-36.0) g/dL RDW Std Deviation 39.8 (36.4-46.3) fL RDW Coeff of Pino 12.8 (11.5-14.5) % Plt Count 189 (130-400) K/uL MPV 10.6 (9.4-12.4) fL Immature Gran % (Auto) 0.6 % Neut % (Auto) 83.0 % Lymph % (Auto) 7.2 % [place] % (Auto) 6.7 % Eos % (Auto) 2.2 % Baso % (Auto) 0.3 % Neut # (Auto) 5.55 (1.40-6.50) K/uL Lymph # (Auto) 0.48 L (1.20-3.40) K/uL [place] # (Auto) 0.45 (0.11-0.59) K/uL Eos # (Auto) 0.15 (0.00-0.50) K/uL Baso # (Auto) 0.02 (0.00-0.20) K/uL Immature Gran # (Auto) 0.04 (0.01-0.20) K/uL Sodium 139 (136-145) mmol/L Potassium 3.7 (3.5-5.1) mmol/L Chloride 106 (98-107) mmol/L Carbon Dioxide 26 (21-32) mmol/L Anion Gap 7 (3-11) BUN 20 (6-23) mg/dl Creatinine 0.85 (0.6-1.4) mg/dl Est Cr Clr Drug Dosing 73.8 ml/min eGFR 91.18 BUN/Creatinine Ratio 23.5 H (10-20) Glucose 161 H (70-99(Fasting)) mg/dl Calcium 9.5 (8.6-10.3) mg/dl Total Bilirubin 0.6 (0.2-1.0) mg/dl AST 20 (13-39) U/L ALT 32 (7-52) U/L Alkaline Phosphatase 161 H (34-104) U/L Troponin I High Sens 21.1 H 20.3 H (0-20) pg/ml Total Protein 6.9 (6.0-8.3) gm/dl Albumin 4.4 (3.4-5.0) gm/dl Globulin 2.5 (2.5-4.0) gm/dl Albumin/Globulin Ratio 1.8 (0.9-2) Administered Medications Acetaminophen (Acetaminophen 325 Mg Tab) 650 mg PO Q4H PRN PRN Reason: pain/fever Stop: 08/26/25 16:27 Last Admin: 07/27/25 16:58 Dose: 650 mg Documented By: GUSTAVO Potassium Chloride (Potassium Chloride Crtab 20 Meq Tabcr) 20 meq PO Q2D MARIBEL Stop: 08/26/25 16:27 Last Admin: 07/27/25 16:58 Dose: 20 meq Documented By: GUSTAVO Imaging Data Radiologist's Impression: Chest X-Ray 07/27/25 11:27 XR chest 1V portable CLINICAL HISTORY: R rib fx, PNA, syncope COMPARISON STUDY: 07/23/2025 FINDINGS: Stable CABG. Heart size and pulmonary vasculature are normal. No consolidation or pleural effusion. No pneumothorax. Right rib fractures are stable. IMPRESSION: Stable exam. No adverse change seen. ACT 112: Negative or not required by law. Electronically signed by: Nikita Tiwari M.D. 07/27/2025 11:49 AM Discharge Plan Visit Data Chief Complaint: Fall Stated Complaint: SYNCOPE ED Provider: Olive Butler Discharge Problem: Syncope, Adult failure to thrive, Acute confusion Patient Disposition: Admitted As Inpatient Condition: Fair Discharge Instructions Interventions: ED Discharge Assessment Last Done: 07/27/25 16:07
--- NOTE | 2025-07-27 13:43 | History & Physical Report ---
Date of Service July 27, 2025 Assessment & Plan (1) Syncope: Plan: Recurrent syncope, suspect vasovagal/orthostatic -EKG sinus without acute territorial ischemia, no heart block Patient story of events around standing and while toileting more suggestive of vasovagal and orthostatic syncope rather than cardiogenic Perfusion study and echo normal within the week. No chest pain/anginal symptoms preceding or following his episode She does have a longstanding history of orthostasis which she reports has been getting worse over the last 2 years, although falls have been increasing and more recent. He does have bilateral vertebral artery stenosis placing him at risk of drop attacks. His blood pressure generally tends to run high however he has persistent orthostatic symptoms with this Formal orthostatics ordered Will likely have to tolerate suboptimal blood pressure control to balance against his recurrent orthostasis/syncope, and at risk of perfusion deficits with his bilateral vertebral stenosis which are not recommended for surgical intervention. Did review with cardiology team who agree with lowering amlodipine, holding isosorbide, and lowering losartan for now. Will follow blood pressure and adjust medications as needed Other anemia less likely but not definitively excluded. Will keep on telemetry, and is still recommended he follow-up with cardiology for outpatient monitoring PT/OT pending Patient has known stable rib fractures and a shoulder injury. No change in this on admission. Denies head strike. No headache. No facial/head injury no neck pain on exam Cognitive impairment Mild, patient appears at cognitive baseline at admitting assessment CAD s/p triple-vessel CABG Preserved EF and normal stress test 07/2025 No anginal symptoms/chest pain preceding syncopal events Antihypertensives decreased due to persistent orthostasis and vasovagal episodes as noted. Follow BP Minimal troponin elevation 21.1, downtrending on recheck 20.3 Continue Plavix Prediabetes Last A1c 5.7% Monitor morning BMP, if greater than 180 then can add short-term control. Will defer this on admission DVT prophylaxis: SCDs due to high risk of falls CODE STATUS: DNR/DNI Disposition: M/T due to syncopal episode Diet: Heart healthy (2) CAD (coronary artery disease): (3) Hypertension: (4) GERD (gastroesophageal reflux disease): (5) Hagan's esophagus: History of Present Illness Primary Care Provider: DO Ulisses Mireleshen is a 75yo M who presents for syncope. Had had several episodes in the month. FEll and has a R shoulder injury, R rib fractures, and was seen in the ER earlier in the week and discharged. Unfortunately had another episode of syncope while on the toilet, slumps on the R side, and was confused. Was not felt to bed safe at home. Recent hospital review: MRI negative, CTA with b/l vertebral stenosis. Seen by neuro --> aspirin switched to plavix however did not recommend DAPT. Consultation reviewed --> could be vulnerable to drop attacks; however, no role for surgical intervention and recommended medical management. Did recommend outpatient tilt table test with cardiology and possible loop recorder. Has a hx of orthostasis Stress test was normal. LVEF 59%. EKG not in EMR, pending download but was completed. Independently reviewed --> sinus bradycardia Seen at the bedside. He reports he does not remember most of his falls, although thinks that he is generally either standing or toileting when he has fallen in the past. This time he does not remember what happened but was on the toilet and then remembers waking up in the hospital. He reports he continues to have some right shoulder pain and right rib pain but this is not changed or worse today compared to at his prior discharge. He denies chest pain, chest pressure, shortness of breath, difficulty bleeding. No lightheadedness or dizziness while in bed. He reports he generally has a good appetite and eats well, but has had a problem with low blood pressure when standing for at least the last 2 years. He does not think this is really changed, although he acknowledges that the passing out seems new and worse. He does not drink alcohol, denies tobacco use. Confirms DNR/DNI status Allergies Allergy/AdvReac Type Severity Reaction Status Date / Time No Known Drug Allergies Allergy Verified 07/05/25 11:08 Home Medications Medication Instructions Recorded Confirmed Type multivitamin (Daily Multi-Vitamin 1 tab PO QAM 06/14/20 07/27/25 History tablet) L.acid,bul,para,rham-B.anim,long 1 cap PO QAM 08/04/22 07/27/25 History 10 billion cell-inulin 100 mg capsule (Probitoic Digestive Support (6 strain)) fexofenadine 180 mg tablet 180 mg PO QAM 08/04/22 07/27/25 History (Blanca Allergy) acetaminophen 325 mg tablet 650 mg (2 x 325 mg) PO Q4H PRN #0 07/18/24 07/27/25 Rx tabs atorvastatin 80 mg tablet 80 mg PO HS #90 tabs 10/27/24 07/27/25 Rx isosorbide mononitrate 60 mg 30 mg (1/2 x 60 mg) PO QAM 90 days 12/25/24 07/27/25 Rx tablet,extended release 24 hr #45 tabs omeprazole 40 mg capsule,delayed 40 mg PO HS barretts esophagus #90 02/07/25 07/27/25 Rx release caps loperamide 2 mg capsule (Imodium 2 mg PO Q4H PRN Diarrhea 04/23/25 07/27/25 History A-D) potassium chloride 20 mEq 20 meq PO Q2D #90 tabs 05/14/25 07/27/25 Rx tablet,extended release nitroglycerin 0.4 mg sublingual 0.4 mg sublingual Q5M PRN chest 06/04/25 07/27/25 Rx tablet pain #7 tabs metoprolol succinate 50 mg 50 mg PO DAILY 07/04/25 07/27/25 History tablet,extended release 24 hr (Toprol XL) amlodipine 5 mg tablet 5 mg PO QAM 07/05/25 07/27/25 History losartan 100 mg tablet 100 mg PO QAM #90 tabs 07/23/25 07/27/25 Rx clopidogrel 75 mg tablet (Plavix) 75 mg PO DAILY 30 days #30 tabs 07/24/25 07/27/25 Rx magnesium oxide 400 mg PO DAILY 07/25/25 07/27/25 History qunol 0 mg PO DAILY 07/25/25 07/27/25 History cholecalciferol (vitamin D3) 0 mg PO DAILY 07/27/25 07/27/25 History ketoconazole 2 % topical cream 1 applic topical UD #30 grams 07/27/25 07/27/25 Rx Past Med/Surg History Problem List (Updated 07/27/25 @ 00:07 by Background Daemon) Dementia Vertebral artery stenosis Urinary urgency Cognitive impairment Confusion Pain in shoulder region after shoulder replacement CAD (coronary artery disease) s/p 3 vessel CABG 2015- (FUENTES to LAD; JHONY to [place] but graft was atretic on repeat cath; SVG to OM) Hypertension S/P CABG x 3 (Acute) 2014 @ [facility] in [place], [place] Exertional angina Dyspnea on exertion Dyslipidemia (Chronic) GERD (gastroesophageal reflux disease) Well controlled and stable Prediabetes Presumed- Hgb A1C 6.1 on 08/10/23 Hagan's esophagus (~2009) Follows with GI, Last EGD 11/2023 History of prostatectomy (~2013) Prostate cancer (Chronic) diagnosed 2009--s/p prostatectomy only, Followed by Urology Glaucoma Follows routinely with eye docotr DDD (degenerative disc disease), lumbar Cognitive decline Pancreatic cyst (~2020) 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) per GI, repeat MRI in 2 years Vitamin B12 deficiency Balance disorder Medical History Voice hoarseness Dizziness Headache Constipation Chronic headaches Loss of taste COVID Surgical History History of biopsy Status post reverse total replacement of right shoulder (~09/2023) History of reverse total replacement of right shoulder joint History of bilateral cataract extraction History of esophagogastroduodenoscopy (EGD) History of colonoscopy History of open reduction and internal fixation (ORIF) procedure History of left knee surgery History of biopsy History of prostate biopsy History of tonsillectomy and adenoidectomy History of eye surgery History of cardiac cath History of wisdom tooth extraction History of inguinal hernia repair Family History Brother Myocardial infarction Hypertension Mother Stomach cancer Hypertension Gallbladder disease Stroke Father Hypertension Alzheimer disease Brother Medical history unknown Sister Medical history unknown Sister Medical history unknown Son No problems noted. Daughter Multiple sclerosis Other No family history of adverse response to anesthesia Denies family history of Ovarian cancer Prostate cancer Breast cancer Colorectal cancer Social History Smoking Status: Former smoker Tobacco Type: Cigarettes Age Started Using Tobacco: 23; Age Quit Using Tobacco: 36; packs per day: 1; Cigarettes Per Day: Smoked x 13 yrs; Second Hand Exposure: No; Do You Dip or Chew Tobacco: No; Hx Alcohol Use: No Hx Substance Use: No Preferred Language: Hungarian Communication Ability: Effective Visual Impairment: Limited Hearing Ability: Hard of Hearing Computer Hardware Developer Required: No Beliefs That Will Affect Care: None marital status: Current Living Situation: Spouse current occupational status: retired 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 Answers questions appropriately. No acute distress HEENT: Atraumatic, normocephalic. Vision and hearing grossly intact. EOM intact without pain or nystagmus Thorax: Right shoulder/superior pectoral hematoma. Tenderness to palpation along the right ribs anteriorly without crepitus. Pulm: CTAB A&P. -wheezes, -rales, -rhonchi. Symmetric oriented al chest rise. No increased work of breathing. No respiratory distress. Cardiac: RRR, -mrg. Radial pulses intact and symmetrical. Abdominal: Nontender, nondistended, soft. BS present. Extremities: Warm, dry Results & Data Results & Data Vital Signs (Past 12 Hours) Vital Signs Temp Pulse Resp BP Pulse Ox O2 Del Method 07/27/25 11:59 61 07/27/25 11:30 93 H 16 96 Room Air 07/27/25 11:03 36.8 C 64 18 158/76 H 96 Room Air PG Care Time/CCT Total # of Minutes Spent Total Time Spent with Patient: Total time spent is greater than 50% in coordination of care (as documented) at patient's floor/unit and/or counseling patient: Coding Level of Care Code 53366 INT INP/OBS CARE 3/75MIN Diagnoses Syncope R55 Syncope type: unspecified Coronary artery disease of [place] artery of [place] heart with stable angina pectoris I25.118 Associated angina: with stable angina Coronary Disease-Associated Artery/Lesion type: [place] artery [place] vs. transplanted heart: [place] heart Primary hypertension I10 Hypertension type: primary hypertension GERD (gastroesophageal reflux disease) K21.9 Hagan's esophagus K22.70 (1) Syncope Syncope type: unspecified Qualified Code(s): R55 - Syncope and collapse (2) CAD (coronary artery disease) Associated angina: with stable angina Coronary Disease-Associated Artery/Lesion type: [place] artery [place] vs. transplanted heart: [place] heart Qualified Code(s): I25.118 - Atherosclerotic heart disease of [place] coronary artery with other forms of angina pectoris (3) Hypertension Hypertension type: primary hypertension Qualified Code(s): I10 - Essential (primary) hypertension
[2025-07-27] MEDS ORDERED: ONDANSETRON INJ 2 MG/ML 2 ML VIAL IV PRN (16:28)
[2025-07-27] MEDS ORDERED: NITROGLYCERIN SL 0.4 MG/TAB TAB SL PRN (16:28)
[2025-07-27] MEDS: ACETAMINOPHEN 325 MG TAB PO PRN (16:58)
[2025-07-27] MEDS: POTASSIUM CHLORIDE CRTAB 20 MEQ TABCR PO SCH (16:58)
[2025-07-27 18:51] LABS: Appearance Urine Clear (Clear); Glucose Urine UA Negative (Negative)
[2025-07-27] MEDS: ATORVASTATIN 40 MG TAB PO SCH (19:57)
[2025-07-28 06:28] LABS: Hematocrit (blood only) 34.7 % (42.0-52.0); Hemoglobin 12.5 g/dl (14.0-18.0); Immature Granulocytes # (auto) 0.02 K/uL (0.01-0.20); Immature Granulocytes % (auto) 0.4 %; Mean Corpuscular Hemoglobin 30.9 pg (25.0-34.0); Mean Corpuscular Volume 85.9 fL (80.0-100.0); Platelet Count 173 K/uL (130-400); RDW Standard Deviation 39.1 fL (36.4-46.3); Red Blood Count 4.04 M/uL (4.70-6.10); White Blood Count 5.46 K/ul (4.8-10.8)
[2025-07-28 07:02] LABS: Anion Gap 6.0 (3-11); Blood Urea Nitrogen 17.0 mg/dl (6-23); Calcium 9.4 mg/dl (8.6-10.3); Carbon Dioxide 29.0 mmol/L (21-32); Chloride 107.0 mmol/L (98-107); Creatinine Clr Calc Pharmacy 76.5 ml/min; Glucose 108.0 mg/dl (70-99(Fasting)); Potassium 3.6 mmol/L (3.5-5.1); Sodium 142.0 mmol/L (136-145)
[2025-07-28] MEDS: LOSARTAN POTASSIUM 50 MG TAB PO SCH (07:52)
[2025-07-28] MEDS: ISOSORBIDE MONO EXTENDED REL 30 MG TABCR PO ONE (07:52)
[2025-07-28] MEDS: FEXOFENADINE HCL 180 MG TAB PO SCH (07:53)
[2025-07-28] MEDS: METOPROLOL SUCC 50MG EXT REL TAB PO SCH (07:53)
[2025-07-28] MEDS: MAGNESIUM OXIDE 400 MG TAB PO SCH (07:53)
[2025-07-28] MEDS: ADVANCED PROBIOTIC 625 MG CAPSULE PO SCH (07:53)
[2025-07-28] MEDS: MULTIVITAMIN TAB PO SCH (07:53)
[2025-07-28] MEDS: CLOPIDOGREL BISULFATE 75 MG TAB PO SCH (07:53)
[2025-07-28] MEDS ORDERED: LOSARTAN POTASSIUM 50 MG TAB PO SCH (09:00)
--- NOTE | 2025-07-28 10:07 | Hospitalist Progress Note ---
Date of Service July 28, 2025 Assessment & Plan (1) Syncope: Plan: Recurrent syncope.? Drop attacks versus vasovagal versus rare arrhythmogenic -EKG sinus without acute territorial ischemia, no heart block Patient story of events around standing and while toileting more suggestive of vasovagal and orthostatic syncope; however on follow-up his orthostatics were negative and he has been hypertensive with dose decrease of his antihypertensives. Adjustments reverted Perfusion study and echo normal within the week. No chest pain/anginal symptoms preceding or following his episode She does have a longstanding history of orthostasis which she reports has been getting worse over the last 2 years, although falls have been increasing and more recent. He does have bilateral vertebral artery stenosis placing him at risk of drop attacks. His blood pressure generally tends to run high however he has persistent orthostatic symptoms with this. Despite this his follow-up orthostatics were negative Patient has known stable rib fractures and a shoulder injury. No change in this on admission. Denies head strike. No headache. No facial/head injury no neck pain on exam PT/OT pending Event monitor in April with sinus rate averaging around 60, rare ectopy, some episodes of nonsustained atrial tachycardia, 2 reported events did not correlate with arrhythmia/occurred during sinus rhythm. Suspect low yield of loop recorder given prior events did not correlate with arrythmia/bradycardia. PT/OT pending. Will review with pt and his today, if they wish to pursue loop recorder can have an eval with Dr. Terry on Wednesday. MRIbrain: Normal brain MRI with and without contrast on 07/23/2025. No prolonged shaking, incontinence, or postictal state suggestive of seizure and EEG in the past has been negative PT/OT pending. Monitor for events while with PT/OT. Cognitive impairment Mild, patient appears at cognitive baseline at admitting assessment CAD s/p triple-vessel CABG Preserved EF and normal stress test 07/2025 No anginal symptoms/chest pain preceding syncopal events Antihypertensives decreased due to persistent orthostasis and vasovagal episodes as noted. Follow BP Minimal troponin elevation 21.1, downtrending on recheck 20.3 Continue Plavix Prediabetes Last A1c 5.7% Monitor morning BMP, if greater than 180 then can add short-term control. Will defer this on admission DVT prophylaxis: SCDs due to high risk of falls CODE STATUS: DNR/DNI Disposition: M/T due to syncopal episode Diet: Heart healthy (2) CAD (coronary artery disease): (3) Hypertension: (4) GERD (gastroesophageal reflux disease): (5) Hagan's esophagus: Admission and Anticipated Discharge Date Admission Date: July 27, 2025 Subjective Seen at the bedside. No events overnight. No chest pain chest pressure lightheadedness or dizziness. No shortness of breath. Continues to have some soreness in his right shoulder, denies any changes. Physical Exam Physical Exam: General: Oriented to name, year, month, place. Answers questions appropriately. No acute distress HEENT: Atraumatic, normocephalic. Vision and hearing grossly intact. EOM intact without pain or nystagmus Thorax: Right shoulder/superior pectoral hematoma. Tenderness to palpation along the right ribs anteriorly without crepitus. Pulm: CTAB A&P. -wheezes, -rales, -rhonchi. Symmetric oriented al chest rise. No increased work of breathing. No respiratory distress. Cardiac: RRR, -mrg. Radial pulses intact and symmetrical. Abdominal: Nontender, nondistended, soft. Extremities: Warm, dry. Hip flexion, manager of community relations strength, ankle dorsiflexio n/plantarflexion are intact and symmetrical Results & Data Results & Data Vital Signs (Past 12 Hours) Vital Signs Temp Pulse Pulse Resp BP Pulse Ox O2 Del Method 07/28/25 07:29 36.4 C L 71 18 206/67 H 93 Room Air 07/28/25 05:55 67 07/28/25 03:34 36.3 C L 64 16 206/67 H 97 Room Air 07/28/25 00:53 58 L 07/27/25 22:39 36.4 C L 64 16 170/76 H 95 Room Air PG Care Time/CCT Total # of Minutes Spent Total Time Spent with Patient: Total time spent is greater than 50% in coordination of care (as documented) at patient's floor/unit and/or counseling patient: Coding Level of Care Code 72641 SUB INP/OBS CARE 3/50MIN Diagnoses Syncope R55 Syncope type: unspecified Coronary artery disease of [place] artery of [place] heart with stable angina pectoris I25.118 Associated angina: with stable angina Coronary Disease-Associated Artery/Lesion type: [place] artery [place] vs. transplanted heart: [place] heart Primary hypertension I10 Hypertension type: primary hypertension GERD (gastroesophageal reflux disease) K21.9 Hagan's esophagus K22.70 (1) Syncope Syncope type: unspecified Qualified Code(s): R55 - Syncope and collapse (2) CAD (coronary artery disease) Associated angina: with stable angina Coronary Disease-Associated Artery/Lesion type: [place] artery [place] vs. transplanted heart: [place] heart Qualified Code(s): I25.118 - Atherosclerotic heart disease of [place] coronary artery with other forms of angina pectoris (3) Hypertension Hypertension type: primary hypertension Qualified Code(s): I10 - Essential (primary) hypertension
--- NOTE | 2025-07-29 06:44 | Electrocardiogram Report ---
Test Reason : Blood Pressure : */* mmHG Vent. Rate : 59 BPM Atrial Rate : 59 BPM P-R Int : 174 ms QRS Dur : 94 ms QT Int : 446 ms P-R-T Axes : -11 -10 -52 degrees QTcB Int : 441 ms Sinus bradycardia Minimal voltage criteria for LVH, may be normal variant ( R in aVL ) Inferior infarct , age undetermined Abnormal ECG When compared with ECG of 23-Jul-2025 12:33, Inferior infarct is now Present Nonspecific T wave abnormality now evident in Inferior leads Confirmed by [place] Gaston ([id number]) on 07/29/2025 6:44:12 AM Referred By: REFERRED SELF Confirmed By: [place] Gaston
--- NOTE | 2025-07-29 07:27 | Hospitalist Progress Note ---
Date of Service July 29, 2025 Assessment & Plan (1) Syncope: Plan: Recurrent syncope.? Drop attacks versus vasovagal versus rare arrhythmogenic -EKG sinus without acute territorial ischemia, no heart block Patient story of events around standing and while toileting more suggestive of vasovagal and orthostatic syncope; however on follow-up his orthostatics were negative and he has been hypertensive with dose decrease of his antihypertensives. Adjustments reverted Perfusion study and echo normal within the week. No chest pain/anginal symptoms preceding or following his episode She does have a longstanding history of orthostasis which she reports has been getting worse over the last 2 years, although falls have been increasing and more recent. He does have bilateral vertebral artery stenosis placing him at risk of drop attacks; however he does have any real dizziness or focal symptoms otherwise preceding his attacks and the more recent ones seem to occur without warning. Formal orthostatics were negative Patient has known stable rib fractures and a shoulder injury. No change in this on admission. Denies head strike. No headache. No facial/head injury no neck pain on exam Event monitor in April with sinus rate averaging around 60, rare ectopy, some episodes of nonsustained atrial tachycardia, 2 reported events did not correlate with arrhythmia/occurred during sinus rhythm. MRIbrain: Normal brain MRI with and without contrast on 07/23/2025. No prolonged shaking, incontinence, or postictal state suggestive of seizure and EEG in the past has been negative PT/OT pending. Monitor for events while with PT/OT. EP evaluation on 07/30/2025, he was would like to pursue a loop recorder. They also note that while he has had longstanding lightheadedness and orthostatic symptoms his recent syncope appears much worse, to occur with very little to no warning and while they do occur toileting/standing seem to have changed in character 07/29 did have some lightheadedness 11/noon while attempting to ambulate however this did not correlate with an arrhythmia on telemetry. He did not have any syncopal event similar to the ones that caused him injury at this time Cognitive impairment Mild, patient appears at cognitive baseline at admitting assessment CAD s/p triple-vessel CABG Preserved EF and normal stress test 07/2025 No anginal symptoms/chest pain preceding syncopal events Minimal troponin elevation 21.1, downtrending on recheck 20.3 Continue Plavix Remains chest pain-free Prediabetes Last A1c 5.7% Monitor morning BMP, if greater than 180 then can add short-term control. Will defer this on admission DVT prophylaxis: SCDs due to high risk of falls CODE STATUS: DNR/DNI Disposition: M/T due to syncopal episode Diet: Heart healthy (2) CAD (coronary artery disease): (3) Hypertension: (4) GERD (gastroesophageal reflux disease): (5) Hagan's esophagus: Admission and Anticipated Discharge Date Admission Date: July 27, 2025 Subjective [place] a little lightheaded when walking to the bathroom and 11/12:00 this afternoon but did not pass out and did not have an event similar to the ones that brought him in. Review of his telemetry did not show any arrhythmia that correlated with this time. He is awaiting EP evaluation in the morning, no other questions/concerns Physical Exam Physical Exam: General: Oriented to name, year, month, place. Answers questions appropriately. No acute distress HEENT: Atraumatic, normocephalic. Vision and hearing grossly intact. EOM intact without pain or nystagmus Thorax: Right shoulder/superior pectoral hematoma. Pulm: CTAB A&P. -wheezes, -rales, -rhonchi. Symmetric oriented al chest rise. No increased work of breathing. No respiratory distress. Cardiac: RRR, -mrg. Radial pulses intact and symmetrical. Abdominal: Nontender, nondistended, soft. Extremities: Warm, dry. Results & Data Results & Data Vital Signs (Past 12 Hours) Vital Signs Temp Pulse Pulse Resp BP BP Pulse Ox 07/29/25 04:30 192/70 H 07/29/25 03:46 36.5 C 86 16 209/105 H 238/112 H 96 07/28/25 22:58 36.7 C 66 16 182/74 H 95 07/28/25 22:53 68 07/28/25 19:26 36.6 C 64 16 143/67 H 95 O2 Del Method 07/29/25 04:30 07/29/25 03:46 Room Air 07/28/25 22:58 Room Air 07/28/25 22:53 07/28/25 19:26 Room Air PG Care Time/CCT Total # of Minutes Spent Total Time Spent with Patient: Total time spent is greater than 50% in coordination of care (as documented) at patient's floor/unit and/or counseling patient: Coding Level of Care Code 80360 SUB INP/OBS CARE 2/35MIN Diagnoses Syncope R55 Syncope type: unspecified Coronary artery disease of [place] artery of [place] heart with stable angina pectoris I25.118 Associated angina: with stable angina Coronary Disease-Associated Artery/Lesion type: [place] artery [place] vs. transplanted heart: [place] heart Primary hypertension I10 Hypertension type: primary hypertension GERD (gastroesophageal reflux disease) K21.9 Hagan's esophagus K22.70 (1) Syncope Syncope type: unspecified Qualified Code(s): R55 - Syncope and collapse (2) CAD (coronary artery disease) Associated angina: with stable angina Coronary Disease-Associated Artery/Lesion type: [place] artery [place] vs. transplanted heart: [place] heart Qualified Code(s): I25.118 - Atherosclerotic heart disease of [place] coronary artery with other forms of angina pectoris (3) Hypertension Hypertension type: primary hypertension Qualified Code(s): I10 - Essential (primary) hypertension
[2025-07-29] MEDS: ENOXAPARIN INJ 40 MG/0.4 ML SYR SQ SCH (07:29)
[2025-07-29] MEDS: ISOSORBIDE MONO EXTENDED REL 30 MG TABCR PO SCH (07:30)
[2025-07-29 07:51] LABS: Hematocrit (blood only) 35.5 % (42.0-52.0); Hemoglobin 12.8 g/dl (14.0-18.0); Immature Granulocytes # (auto) 0.02 K/uL (0.01-0.20); Immature Granulocytes % (auto) 0.4 %; Mean Corpuscular Hemoglobin 30.8 pg (25.0-34.0); Mean Corpuscular Volume 85.5 fL (80.0-100.0); Platelet Count 178 K/uL (130-400); RDW Standard Deviation 39.0 fL (36.4-46.3); Red Blood Count 4.15 M/uL (4.70-6.10); White Blood Count 5.33 K/ul (4.8-10.8)
[2025-07-29 08:09] LABS: Anion Gap 9.0 (3-11); Blood Urea Nitrogen 18.0 mg/dl (6-23); Calcium 9.4 mg/dl (8.6-10.3); Carbon Dioxide 26.0 mmol/L (21-32); Chloride 108.0 mmol/L (98-107); Creatinine Clr Calc Pharmacy 74.6 ml/min; Glucose 112.0 mg/dl (70-99(Fasting)); Magnesium 1.8 mg/dl (1.7-2.4); Potassium 3.4 mmol/L (3.5-5.1); Sodium 143.0 mmol/L (136-145)
[2025-07-30 07:25] VITALS: TEMP 97.5
[2025-07-30 08:12] LABS: Anion Gap 7.0 (3-11); Blood Urea Nitrogen 15.0 mg/dl (6-23); Calcium 9.6 mg/dl (8.6-10.3); Carbon Dioxide 28.0 mmol/L (21-32); Chloride 107.0 mmol/L (98-107); Creatinine Clr Calc Pharmacy 69.7 ml/min; Glucose 113.0 mg/dl (70-99(Fasting)); Potassium 3.5 mmol/L (3.5-5.1); Sodium 142.0 mmol/L (136-145)
[2025-07-30 08:20] LABS: Polychromasia 1+
[2025-07-30 08:41] LABS: Hematocrit (blood only) 38.1 % (42.0-52.0); Hemoglobin 13.4 g/dl (14.0-18.0); Immature Granulocytes # (auto) 0.02 K/uL (0.01-0.20); Immature Granulocytes % (auto) 0.4 %; Mean Corpuscular Hemoglobin 30.4 pg (25.0-34.0); Mean Corpuscular Volume 86.4 fL (80.0-100.0); Platelet Count 173 K/uL (130-400); RDW Standard Deviation 39.6 fL (36.4-46.3); Red Blood Count 4.41 M/uL (4.70-6.10); White Blood Count 5.29 K/ul (4.8-10.8)
--- NOTE | 2025-07-30 09:23 | Cardiology Consultation ---
Date of Consultation July 30, 2025 Assessment & Plan (1) Syncope: (2) CAD (coronary artery disease): (3) Hypertension: Plan 1. Syncope: He is had multiple episodes of syncope or severe presyncope, no clear associate arrhythmia has been identified and it appears that he had an episode while wearing the monitor although since there is no specific documentation of when this occurred and the monitor was activated a number of times I cannot be certain of the rhythm at the time. It is possibly a transient arrhythmia that we have not been able to identify. It could also be a transient drop in blood pressure which is very difficult to document. He has not had a tilt test and some of the symptoms seem orthostatic, I think would be reasonable to do a tilt test which may or may not be helpful but is a simple safe thing to do and we can do it while he is here. If that is negative we could go ahead and implant a loop recorder while he is here. He and his are agreeable to this approach. 2. Coronary disease: Although he has significant coronary artery disease (including residual disease) it does not seem likely that this is related to these events directly. 3. Hypertension: He does have hypertension, sometimes his blood pressure is quite severely elevated, and has been consistently elevated here in the hospital. I do not believe his blood pressure has been recorded during 1 of these events. It might be helpful to see whether there is an orthostatic component to his blood pressure. History of Present Illness Reason for Consultation: Syncope and falling Attending Physician: Leonel Landis MD History of Present Illness This is a 75-year-old male with a history of hypertension, dyslipidemia and known coronary artery disease including bypass surgery in the past, although he has unresolved obstruction medical therapy has been recommended. He also has dyspnea on exertion and may have mild restrictive lung disease. In addition he has had episodes of unresponsiveness although apparently these are witnessed by his and he does not have complete loss of consciousness although he has been observed to slump over he presented to the emergency room on July 27, 2025 with syncope, 3 episodes are reported over the last 2-1/2 weeks. He has had injury on prior falls. On this occasion he was caught before he fell, and was brought to the emergency room. He does have periods of hypotension which may be the cause although these have not been identified coincident with the episodes. He did have a neurologic consultation on July 24, 2025 and it was felt that these were not consistent with a seizure and he has had a normal EEG in the past. Hypotension was suspected rather than a primary neurologic event although he does have vertebral artery disease. He did have an echocardiogram July 24, 2025 where he had normal left ventricular systolic function and mild concentric left ventricular hypertrophy. He had an electrocardiogram July 27, 2025 which showed sinus rhythm at 59 bpm with an old inferior myocardial infarction. He did wear an event recorder from May 11, 2025 through June 10, 2025. He is heart rate ranged from 46 to 107 bpm with an average of 62. There were no significant arrhythmias identified, he had a few premature ventricular beats and a few supraventricular premature beats but no sustained atrial or ventricular arrhythmia and no pauses. There were 8 patient events reported although these were reported by monitor activation and no symptoms are noted. The rhythm was sinus on all occasions and the heart rate ranged from 64 to 90 bpm. Overall the monitor was quite unremarkable. I discussed his episodes and symptoms with him and his who was present in the room. She has witnessed a number of these episodes. They do occur sometimes with changing position (such as standing up) but can also occur suddenly while sitting down. They appear to be brief although some seem longer than others, such as when he was falling off the toilet on this presentation. His blood pressure has not been recorded during or near an event (which is often difficult). He does not seem to be very aware of his episodes and does not report lightheadedness or dizziness at other times. Of note on his event recorder he definitely had a symptom that his activated the device for, but I do not know exactly when that was and I am not sure what the other activations were for as they do not recall. Since his hospitalization he has not had any symptoms. Allergies Allergy/AdvReac Type Severity Reaction Status Date / Time No Known Drug Allergies Allergy Verified 07/05/25 11:08 Home Medications Medication Instructions Recorded Confirmed Type multivitamin (Daily Multi-Vitamin 1 tab PO QAM 06/14/20 07/27/25 History tablet) L.acid,bul,para,rham-B.anim,long 1 cap PO QAM 08/04/22 07/27/25 History 10 billion cell-inulin 100 mg capsule (Probitoic Digestive Support (6 strain)) fexofenadine 180 mg tablet 180 mg PO QAM 08/04/22 07/27/25 History (Blanca Allergy) acetaminophen 325 mg tablet 650 mg (2 x 325 mg) PO Q4H PRN #0 07/18/24 07/27/25 Rx tabs atorvastatin 80 mg tablet 80 mg PO HS #90 tabs 10/27/24 07/27/25 Rx isosorbide mononitrate 60 mg 30 mg (1/2 x 60 mg) PO QAM 90 days 12/25/24 07/27/25 Rx tablet,extended release 24 hr #45 tabs omeprazole 40 mg capsule,delayed 40 mg PO HS barretts esophagus #90 02/07/25 07/27/25 Rx release caps loperamide 2 mg capsule (Imodium 2 mg PO Q4H PRN Diarrhea 04/23/25 07/27/25 History A-D) potassium chloride 20 mEq 20 meq PO Q2D #90 tabs 05/14/25 07/27/25 Rx tablet,extended release nitroglycerin 0.4 mg sublingual 0.4 mg sublingual Q5M PRN chest 06/04/25 07/27/25 Rx tablet pain #7 tabs metoprolol succinate 50 mg 50 mg PO DAILY 07/04/25 07/27/25 History tablet,extended release 24 hr (Toprol XL) amlodipine 5 mg tablet 5 mg PO QAM 07/05/25 07/27/25 History losartan 100 mg tablet 100 mg PO QAM #90 tabs 07/23/25 07/27/25 Rx clopidogrel 75 mg tablet (Plavix) 75 mg PO DAILY 30 days #30 tabs 07/24/25 07/27/25 Rx magnesium oxide 400 mg PO DAILY 07/25/25 07/27/25 History qunol 0 mg PO DAILY 07/25/25 07/27/25 History cholecalciferol (vitamin D3) 0 mg PO DAILY 07/27/25 07/27/25 History ketoconazole 2 % topical cream 1 applic topical UD #30 grams 07/27/25 07/27/25 Rx Patient History Medical History Syncope and collapse Hypertension Arterial stenosis Multiple fractures of ribs Acute confusion Voice hoarseness Since 2009 prostate surgery- breathing tube damaged vocal cords Dizziness x one year- usually with change in positions- cardiology adjusting medications- with changing positions slowly- usually does well Headache Improved recently - with decrease is isosorbide mononitrate Constipation Occ Chronic headaches Loss of taste COVID Surgical History History of biopsy "Growth" in esophagus - benign Status post reverse total replacement of right shoulder (~09/2023) History of reverse total replacement of right shoulder joint History of bilateral cataract extraction History of esophagogastroduodenoscopy (EGD) History of colonoscopy 10/2015, Repeat 10 yrs History of open reduction and internal fixation (ORIF) procedure femur fx-right--hardware removed History of left knee surgery History of biopsy nodule on pancreas--benign History of prostate biopsy malignant History of tonsillectomy and adenoidectomy History of eye surgery left - removed "growth" History of cardiac cath x3 last 11/2021 @ [facility] no stents and 2014--unable to stent, had CABGx3 History of wisdom tooth extraction History of inguinal hernia repair left Family History Brother Myocardial infarction Hypertension Mother , 85yo Stomach cancer Hypertension Gallbladder disease Stroke Father , 86yo Hypertension Alzheimer disease Brother Medical history unknown Sister Medical history unknown Sister Medical history unknown Son No problems noted. Daughter Multiple sclerosis Other No family history of adverse response to anesthesia Denies family history of Ovarian cancer Prostate cancer Breast cancer Colorectal cancer Social History Smoking Status: Former smoker Tobacco Type: Cigarettes Age Started Using Tobacco: 23; Age Quit Using Tobacco: 36; packs per day: 1; Cigarettes Per Day: Smoked x 13 yrs; Second Hand Exposure: No; Do You Dip or Chew Tobacco: No; Hx Alcohol Use: No Hx Substance Use: No Preferred Language: Malay Communication Ability: Effective Visual Impairment: Limited Hearing Ability: Hard of Hearing Chimney Repairer Required: No Beliefs That Will Affect Care: None marital status: Current Living Situation: Parent current occupational status: retired 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 How many Children do You have: 2 Other Information That Helps Us Care for You: No Feels Safe at Home: Yes Safety Concerns: Feels Safe At This Time Childhood Exposure to Second-Hand Smoke: Yes Diet: regular caffeine: Yes (coffee ) during the past year weight has: decreased > 10 lbs Dental Care, Regularly: Yes Physical Activity Frequency: 3-4 Times per Week Physical Activity Frequency Comment: walking Seatbelt Use: always Sunscreen Use: No Do you think of yourself as: straight/heterosexual Assistive Devices: None Review of Systems Review of Systems: All systems reviewed & are unremarkable except as noted in HPI & below Physical Exam Physical Exam: Constitutional: Alert, cooperative and in no distress. He is resting in bed. HEENT: Unremarkable Neck: No jugular venous distention, carotid pulses are normal and equal bilaterally without bruits. Pulmonary: Clear to auscultation bilaterally. Cardiac: Regular rhythm with no murmur, gallop or rub. Abdomen: Soft, nontender with normal bowel sounds. Extremities: No edema. Neurologic: No focal findings. Gait was not tested. Skin: No rash or petechiae. Ecchymosis present in his right shoulder and right thorax. Results & Data Vital Signs (Past 12 Hours) Vital Signs Temp Pulse Pulse Resp BP Pulse Ox O2 Del Method 07/30/25 08:15 Room Air 07/30/25 07:25 36.4 C L 67 18 161/78 H 96 Room Air 07/30/25 02:36 36.6 C 62 16 173/75 H 96 Room Air 07/29/25 23:42 88 07/29/25 22:17 36.8 C 67 16 184/79 H 94 Room Air Laboratory Results CBC 07/30/25 Range/Units 07:07 WBC 5.29 (4.8-10.8) K/ul RBC 4.41 L (4.70-6.10) M/uL Hgb 13.4 L (14.0-18.0) g/dl Hct 38.1 L (42.0-52.0) % Plt Count 173 (130-400) K/uL Neut # (Auto) 4.04 (1.40-6.50) K/uL Lymph # (Auto) 0.51 L (1.20-3.40) K/uL Gilmer # (Auto) 0.45 (0.11-0.59) K/uL Eos # (Auto) 0.24 (0.00-0.50) K/uL Baso # (Auto) 0.03 (0.00-0.20) K/uL Comprehensive Metabolic Panel 07/30/25 Range/Units 07:07 Sodium 142 (136-145) mmol/L Potassium 3.5 (3.5-5.1) mmol/L Chloride 107 (98-107) mmol/L Carbon Dioxide 28 (21-32) mmol/L BUN 15 (6-23) mg/dl Creatinine 0.90 (0.6-1.4) mg/dl Glucose 113 H (70-99(Fasting)) mg/dl Calcium 9.6 (8.6-10.3) mg/dl Intake and Output 07/29/25 07/30/25 07/30/25 22:59 06:59 14:59 Intake Total 240 / 730 250 / 730 Balance 240 / 730 250 / 730 Intake: Oral 240 / 730 250 / 730 Other: Weight 70.7 kg Diagnostic Findings Telemetry: Sinus rhythm, no significant arrhythmia. PG Care Time/CCT Total # of Minutes Spent Total Time Spent with Patient: Total time spent is greater than 50% in coordination of care (as documented) at patient's floor/unit and/or counseling patient: Coding Level of Care Code 10340 INT INP/OBS CARE 3/75MIN Diagnoses Syncope R55 Coronary artery disease of enterprise artery of enterprise heart with stable angina pectoris I25.118 Associated angina: with stable angina Coronary Disease-Associated Artery/Lesion type: enterprise artery [place] vs. transplanted heart: enterprise heart Primary hypertension I10 Hypertension type: primary hypertension (2) CAD (coronary artery disease) Associated angina: with stable angina Coronary Disease-Associated Artery/Lesion type: enterprise artery [place] vs. transplanted heart: enterprise heart Qualified Code(s): I25.118 - Atherosclerotic heart disease of enterprise coronary artery with other forms of angina pectoris (3) Hypertension Hypertension type: primary hypertension Qualified Code(s): I10 - Essential (primary) hypertension
--- NOTE | 2025-07-30 11:19 | Hospitalist Progress Note ---
Date of Service July 30, 2025 Assessment & Plan (1) Syncope: Plan: Formal orthostatics were negative MRIbrain: Normal brain MRI with and without contrast on 07/23/2025. No prolonged shaking, incontinence, or postictal state suggestive of seizure and EEG in the past has been negative - Cardiology consult appreciated - Tilt table test - if negative proceed with loop recorder (2) CAD (coronary artery disease): Plan: Preserved EF and normal stress test 07/2025 No anginal symptoms/chest pain preceding syncopal events Minimal troponin elevation 21.1, downtrending on recheck 20.3 Continue Plavix (3) Hypertension: Plan: -hydralazine -imdur -norvasc -losartan -metoprolol (4) GERD (gastroesophageal reflux disease): Plan: -protonix Admission and Anticipated Discharge Date Admission Date: July 27, 2025 Subjective No events overnight. Pt resting comfortably in bed. Review of Systems Review of Systems: CONST: Negative for fever, body aches and chills. HENT: Negative for neck pain/stiffness, headache, congestion, sore throat, swelling. EYES: Negative for discharge/pain or vision changes. RESP: Negative for cough/hemoptysis and shortness of breath. CV: Negative chest pain, difficulty breathing, palpitations. ABD: Negative pain, nausea, vomiting. : Negative increase frequency, dysuria, blood in urine or stool. MUSC: Negative for muscle aches, edema. SKIN: Negative rash, lesions/sores. NEURO: Negative headache, dizziness, weakness. Physical Exam Physical Exam: GENERAL APPEARANCE NAD, activity normal for age, well developed/ well nourished, no cyanosis, pallor, or diaphoresis. EYES lids/conjunctiva normal. EARS/NOSE/THROAT Mucous membranes moist, nares normal, lips/teeth normal uvula midline without oral pharyngeal erythema, exudate or swelling TMs normal bilaterally. No lymphangitis/lymphedema. HEAD/NECK normocephalic atraumatic, no facial trauma, neck is supple. RESPIRATORY respiratory effort normal, speaks in full sentences, no tripod position, no accessory muscle use. Lungs clear to auscultation without rhonchi, wheezes, rales CARDIAC Regular rate and rhythm, no edema. ABDOMINAL Soft, ND/NT. No evidence of fluid wave. No pulsatile masses on exam, rebound tenderness, Connors sign or pain over Mcburney's point. MUSCLES/EXTREMITIES No abnormal range of motion, no swelling. SKIN Warm, pink and dry. No rashes, dermatoses, petechiae or lesions. NEUROLOGICAL Speech is clear and appropriate. Normal level of consciousness. Gait and coordination are normal. 5/5 strength in all extremities. PSYCH Normal mood and affect. Judgement/competence is appropriate Results & Data Results & Data Vital Signs (Past 12 Hours) Vital Signs Temp Pulse Pulse Resp BP Pulse Ox O2 Del Method 07/30/25 08:15 Room Air 07/30/25 07:25 36.4 C L 67 18 161/78 H 96 Room Air 07/30/25 02:36 36.6 C 62 16 173/75 H 96 Room Air 07/29/25 23:42 88 PG Care Time/CCT Total # of Minutes Spent Total Time Spent with Patient: Total time spent is greater than 50% in coordination of care (as documented) at patient's floor/unit and/or counseling patient: Coding Level of Care Code 97753 SUB INP/OBS CARE 2/35MIN Diagnoses Syncope R55 Syncope type: unspecified Coronary artery disease of teller artery of teller heart with stable angina pectoris I25.118 Coronary Disease-Associated Artery/Lesion type: teller artery [place] vs. transplanted heart: teller heart Associated angina: with stable angina Primary hypertension I10 Hypertension type: primary hypertension GERD (gastroesophageal reflux disease) K21.9 (1) Syncope Syncope type: unspecified Qualified Code(s): R55 - Syncope and collapse (2) CAD (coronary artery disease) Coronary Disease-Associated Artery/Lesion type: teller artery [place] vs. transplanted heart: teller heart Associated angina: with stable angina Qualified Code(s): I25.118 - Atherosclerotic heart disease of teller coronary artery with other forms of angina pectoris (3) Hypertension Hypertension type: primary hypertension Qualified Code(s): I10 - Essential (primary) hypertension
--- NOTE | 2025-07-30 12:36 | Tilt Table Test ---
PG Cardiac Tilt Table Test Date of Service Date of Service: July 30, 2025 The patient was brought to the laboratory having nothing by mouth after breakfast. The patient was identified in the laboratory. After obtaining informed consent for the procedure, the patient was placed supine on the tilt table and remained supine for 15 minutes. The head of the tilt table was then raised to a 70 head up position where it remained for 30 minutes. The head of the bed was then placed supine and monitoring continued for an additional 15 minutes. During the procedure continuous pulse oximetry and electrocardiography was performed, noninvasive blood pressure monitoring was performed at five- minute intervals. Findings: The blood pressure did dropped significantly with initial upright tilt (from 130 to 144 mmHg systolic at baseline to 97/65 with immediate upright tilt) but his heart rate did not change significantly (it increased from 66-70 baseline to 80 with upright tilt), the heart rate did not change much during the remainder of the study (generally in the 80s with a maximum 92). He felt a little dizzy when he had his initial blood pressure drop but then his symptoms resolved and his pressure increased to just above 100 systolic. Later on during the test his systolic blood pressure dropped briefly to about 80 mmHg, he felt little dizzy at that time. When he was placed supine his blood pressure increased but not to his pre-tilt measurements (96/55 immediately after being placed supine, 113/63 8 minutes later). Pulse oximetry was normal and unchanged throughout the study. Of note this test did not reproduce his presyncopal events. Details of the blood pressure, heart rate and pulse oximetry data are presented on the procedure data sheet. Conclusions: Abnormal tilt test with clear evidence of orthostasis with then an appropriate heart rate response however it did not reproduce his presyncopal symptoms. PG Cardiac Tilt Table Codes Indication for Procedure (1) Syncope: Procedure Code Tilt Table Evaluation: 29656 Tilt Table Evaluation
--- NOTE | 2025-07-30 13:10 | Electrophysiology Report ---
Date of Service July 30, 2025 Electrophysiology Procedure Electrophysiology Procedure Report Preoperative diagnosis: Presyncope and syncope Postoperative diagnosis: Same Procedure: Loop recorder implantation Surgeon: Reza Austin MD Estimated blood loss: 2 cc Complications: None Disposition: Presser Machine recovery Procedure details: After obtaining informed consent for the procedure, the patient was brought to the laboratory having had nothing by mouth after midnight. The patient was prepped and draped in the standard sterile manner for a loop recorder implantation. An area at the fourth left intercostal space and 1 cm left of the left sternal border was infiltrated with 1% lidocaine local anesthetic and a 0.5 cm incision was made through the skin. Using the loop recorder insertion tool the loop recorder was inserted through the incision at a 45 downward and leftward angle. The incision was closed with a subcutaneous continuous closure of 4-0 Vicryl followed by a running subcuticular skin closure of 4-0 Vicryl. Steri-Strips were applied and bacitracin ointment was placed on the incision. A dressing was applied. [facility] [place] Indication for Procedure (1) Syncope: Implantable Monitors Procedure 1: Implantable Monitors: [id number] Loop Recorder Implant
--- NOTE | 2025-07-30 13:39 | Discharge Summary ---
Discharge Summary Date of Service July 30, 2025 Principal Dx & Hospital Course #1 = Principal Diagnosis (1) Syncope: Formal orthostatics were negative MRIbrain: Normal brain MRI with and without contrast on 07/23/2025. No prolonged shaking, incontinence, or postictal state suggestive of seizure and EEG in the past has been negative - Cardiology consult appreciated - Tilt table test - if negative proceed with loop recorder (2) CAD (coronary artery disease): Preserved EF and normal stress test 07/2025 No anginal symptoms/chest pain preceding syncopal events Minimal troponin elevation 21.1, downtrending on recheck 20.3 Continue Plavix (3) Hypertension: -hydralazine -imdur -norvasc -losartan -metoprolol (4) GERD (gastroesophageal reflux disease): -protonix Admission HPI Per Admitting Provider Isaac is a 75yo M who presents for syncope. Had had several episodes in the last month. FEll and has a R shoulder injury, R rib fractures, and was seen in the ER earlier in the week and discharged. Unfortunately had another episode of syncope while on the toilet, slumps on the R side, and was confused. Was not felt to bed safe at home. Recent hospital review: MRI negative, CTA with b/l vertebral stenosis. Seen by neuro --> aspirin switched to plavix however did not recommend DAPT. Consultation reviewed --> could be vulnerable to drop attacks; however, no role for surgical intervention and recommended medical management. Did recommend outpatient tilt table test with cardiology and possible loop recorder. Has a hx of orthostasis Stress test was normal. LVEF 59%. EKG not in EMR, pending download but was completed. Independently reviewed --> sinus bradycardia Seen at the bedside. He reports he does not remember most of his falls, although thinks that he is generally either standing or toileting when he has fallen in the past. This time he does not remember what happened but was on the toilet and then remembers waking up in the hospital. He reports he continues to have some right shoulder pain and right rib pain but this is not changed or worse today compared to at his prior discharge. He denies chest pain, chest pressure, shortness of breath, difficulty bleeding. No lightheadedness or dizziness while in bed. He reports he generally has a good appetite and eats well, but has had a problem with low blood pressure when standing for at least the last 2 years. He does not think this is really changed, although he acknowledges that the passing out seems new and worse. He does not drink alcohol, denies tobacco use. Confirms DNR/DNI status Discharge Exam GENERAL APPEARANCE NAD, activity normal for age, well developed/ well nourished, no cyanosis, pallor, or diaphoresis. EYES lids/conjunctiva normal. EARS/NOSE/THROAT Mucous membranes moist, nares normal, lips/teeth normal uvula midline without oral pharyngeal erythema, exudate or swelling TMs normal bilaterally. No lymphangitis/lymphedema. HEAD/NECK normocephalic atraumatic, no facial trauma, neck is supple. RESPIRATORY respiratory effort normal, speaks in full sentences, no tripod position, no accessory muscle use. Lungs clear to auscultation without rhonchi, wheezes, rales CARDIAC Regular rate and rhythm, no edema. ABDOMINAL Soft, ND/NT. No evidence of fluid wave. No pulsatile masses on exam, rebound tenderness, Connors sign or pain over Mcburney's point. MUSCLES/EXTREMITIES No abnormal range of motion, no swelling. SKIN Warm, pink and dry. No rashes, dermatoses, petechiae or lesions. NEUROLOGICAL Speech is clear and appropriate. Normal level of consciousness. Gait and coordination are normal. 5/5 strength in all extremities. PSYCH Normal mood and affect. Judgement/competence is appropriate Discharge Plan Discharge Items Patient Disposition: Home - Self-Care Reason For Visit: SYNCOPE Discharge Diagnosis: syncope Condition on Discharge: Fair Activity: Resume your previous activity Non-emergency contact: Primary Care Provider Call non-emergency contact if: you have any medication questions Follow-up/Referrals: Reza Austin MD [Physician] - 08/01/25 10:30 am Pk Saeed DO [Primary Care Provider] - Diet: Regular Addtl Attending Provider Instructions: Follow up with cardiology in 2 weeks Addtl Supervisor Screen Printing Provider Instructions: ACTIVITY RECOMMENDATIONS: * Do not raise affected arm over head for 2 weeks. SPECIAL CARE INSTRUCTIONS: * If bleeding occurs, apply direct pressure to area for 5 minutes. * Call your doctor if you have severe pain, fever, drainage or bleeding at site. * Keep dressing on and dry for 48 hours then remove. * Keep any scheduled doctor's appointment. * Implant Card - hand held device with website information given. FOLLOW UP VISIT: Keep any scheduled doctor appointments. Pending Studies at Discharge: No Stand-Alone Forms: My [facility], Smoking Cessation Medications and DC Order Prescriptions: New metoprolol succinate [Toprol XL] 25 mg tablet extended release 24 hr 25 mg PO DAILY Qty: 30 0RF Continued loperamide [Imodium A-D] 2 mg capsule 2 mg PO Q4H PRN (Reason: Diarrhea) Rx Instructions: administer after each loose stool until symptoms controlled; do not exceed 8 mg per 24 hrs atorvastatin 80 mg tablet 80 mg PO HS Qty: 90 3RF isosorbide mononitrate 60 mg tablet extended release 24 hr 30 mg PO QAM 90 Days Qty: 45 3RF omeprazole 40 mg capsule,delayed release(DR/EC) 40 mg PO HS Qty: 90 3RF potassium chloride 20 mEq tablet extended release 20 meq PO Q2D Qty: 90 3RF losartan 100 mg tablet 100 mg PO QAM Qty: 90 3RF ketoconazole 2 % cream 1 applic topical UD Qty: 30 2RF Rx Instructions: 1 applic topically to feet 2-3 nights weekly for maintenance. fexofenadine [Blanca Allergy] 180 mg tablet 180 mg PO QAM Probiotic Digest Supp (6-strn) 10 billion cell -100 mg capsule 1 cap PO QAM multivitamin [Daily Multi-Vitamin] Tablet 1 tab PO QAM nitroglycerin 0.4 mg tablet, sublingual 0.4 mg sublingual Q5M PRN (Reason: chest pain) Qty: 7 3RF Rx Instructions: do not exceed 3 doses per episode magnesium oxide 400 mg magnesium capsule 400 mg PO DAILY qunol 0 mg PO DAILY Patient Comments: otc unknown dose acetaminophen 325 mg Tablet 650 mg PO Q4H PRNQty: 0 0RF clopidogrel [Plavix] 75 mg tablet 75 mg PO DAILY 30 Days Qty: 30 0RF amlodipine 5 mg tablet 5 mg PO QAM cholecalciferol (vitamin D3) 0 mg PO DAILY Patient Comments: otc unknown dose Discontinued metoprolol succinate [Toprol XL] 50 mg tablet extended release 24 hr 50 mg PO DAILY Discharge Orders: Discharge Order (Routine); Ordered 07/30/25 Ordered By: Leonel Landis Admission Data Admit Date/Time: 07/27/25 14:18 Attending Provider: Leonel Landis Admit Provider: Dewey Duenas Primary Care Provider: Pk Saeed Other Providers: Dewey Duneas; Reza Austin Hospital Stay Data Consultations 07/27/25 13:01 ED Decision to Admit Stat 07/30/25 09:00 Consult Cardiology Routine Procedures Performed Operation Date: 07/30/25 11:30 Actual Procedures p Tilt Table Test - Reza Austin MD p Implant Cardiac Event Recorder - Reza Austin MD Discharge Instructions Given to Patient (Per Discharging Provider) Follow up with cardiology in 2 weeks Total Time Total Time Spent Total Time Spent (In Minutes): 50 Coding Level of Care Code 55719 INP/OBS DISCH >30 MIN Diagnoses Syncope R55 Syncope type: unspecified Coronary artery disease of [place] artery of [place] heart with stable angina pectoris I25.118 Coronary Disease-Associated Artery/Lesion type: [place] artery [place] vs. transplanted heart: [place] heart Associated angina: with stable angina Primary hypertension I10 Hypertension type: primary hypertension GERD (gastroesophageal reflux disease) K21.9
[2025-07-30 13:49] VITALS: PULSE 67; RESP 16; O2SAT 95
[2025-07-30 13:51] VITALS: BP 164/73
[2025-07-30] MEDS: LIDOCAINE 1% LOCAL 20 ML VIAL ONE (14:00)
[2025-07-30] MEDS: ceFAZolin 330 MG/ML 1 GM VIAL ONE (14:00)
[2025-07-30] MEDS: MIDAZOLAM HCL 5 MG/ML 1 ML VIAL ONE (14:00)
== END 2025-07-30 14:38 | disposition home or self-care (01) | DRG 262 ==
LOC: ED 10:50 → 2N 14:18 → SUATTDRO 14:18 → 2N 16:07

== ENCOUNTER 2025-09-04 12:14 | Observation (INO) ==
--- NOTE | 2025-09-04 12:22 | Emergency Department Note ---
Impression & Plan Syncope, Hypomagnesemia ED Provider Note NAME: JULIEN RIOS AGE: 75 SEX: M : 1950 ARRIVES VIA: Ambulance INFORMANT: Patient, ED PROVIDER(S): Chau Byrd MD CHIEF COMPLAINT: Syncope, nausea vomiting MEDICAL DECISION MAKING: Patient presents due to concern for syncope. IV was established and blood work was obtained. Patient was ordered IV fluids as well as IV Zofran. Patient's blood work shows a normal white count hemoglobin of 12.4. Patient's kidney function is unremarkable. Patient was noted to have an elevated blood sugar but not in DKA with normal bicarb and anion gap. Magnesium low at 1.3. The patient was ordered 2 g for replete meant. Troponin not elevated. EKG appears unchanged compared to priors. Patient has had pretty significant workups in the past including MRIs as well as tilt table testing. Did speak with the on-call hospitalist Dr. Marks again after discussion we will plan to admit the patient. Discussion w/ other healthcare providers: Dr. Vu inpatient medicine service Prior /Outside records reviewed: I reviewed part of a PCP visit. Patient was seen in post Hospital follow-up for syncope and confusion. Patient reportedly had a negative brain MRI with and without contrast on July 23.. On Imdur hydralazine Norvasc losartan and metoprolol for hypertension. Patient reportedly had preserved EF and normal stress test completed during his inpatient stay. Patient did have abnormal tilt table test consistent with orthostasis. But did not reproduce his presyncopal symptoms. Differential diagnosis: Vasovagal event, dehydration, infection, hypoglycemia, electrolyte abnormalities, arrhythmia, pulmonary embolism, seizure among others were considered. Diagnostics, as interpreted by me: ECG: Normal sinus rhythm, rate of 70, normal QRS duration, normal axis no ST elevations T wave inversions anteriorly. Machine read as a flutter but patient does have P waves present. Cardiac monitoring: An order was placed for continuous cardiac monitoring. The monitor shows a rate of 72 with sinus rhythm. Patient was placed on pulse oximetry Medical decision rules: None Imaging studies: I informally interpreted the patient's Chest x-ray does not show evidence of obvious pneumonia or pneumothorax, device noted over the left heart border, sternotomy wires noted with formal report to follow. HPI: Patient presents due to concern for syncope. Patient was reportedly eating and later breakfast had wills and eggs. The patient was seated while drinking coffee he reportedly got a glassy look in his eyes subsequently had an episode of vomiting and diarrhea and passed out. Patient still does complain of some nausea. No changes in diet known sick contacts and recent travel. The patient has had an episode of syncope essentially the last 2 months as well as today. Patient denies any chest pains or shortness of breath no cough or fever. PAST MEDICAL HISTORY: See Below PAST SURGICAL HISTORY: See Below SOCIAL HISTORY: See Below HOME MEDICATIONS: See Below ALLERGIES: See Below VITALS: See Below PHYSICAL EXAMINATION: GENERAL: NAD, non-toxic. EYE EXAM: Normal conjunctiva. PERRL, no anisocoria and EOM's grossly intact w/o pain. OROPHARYNX: Moist mucus membranes, grossly normal dentition. NECK: Trachea midline, no stridor. LUNGS: Clear to auscultation. Normal chest wall mechanics. HEART: NSR, no MRG. ABDOMEN: Abdomen soft, non-tender, no masses, no rebound or guarding. BACK: No CVA TTP. SKIN: No rashes and no bruising. UPPER EXTREMITIES: Upper extremities are grossly normal. LOWER EXTREMITIES: Grossly normal, no edema. NEURO EXAM: Awake and alert, follows commands, no obvious facial asymmetry, normal speech, moves all 4 extremities. Past Med/Surg History Problem List (Updated 09/04/25 @ 16:51 by Chau Byrd MD) Hypomagnesemia (Acute) Syncope (Acute) Tremor Acute confusion (Acute) Adult failure to thrive (Acute) Syncope (Acute) Dementia Vertebral artery stenosis Urinary urgency Cognitive impairment Confusion Pain in shoulder region after shoulder replacement CAD (coronary artery disease) s/p 3 vessel CABG 2016- (FUENTES to LAD; JHONY to RI but graft was atretic on repeat cath; SVG to OM) Hypertension S/P CABG x 3 (Acute) 2014 @ [facility] in [place], [place] Exertional angina Dyspnea on exertion Dyslipidemia (Chronic) GERD (gastroesophageal reflux disease) Well controlled and stable Prediabetes Presumed- Hgb A1C 6.1 on 08/10/23 Hagan's esophagus (~2009) Follows with GI, Last EGD 11/2023 History of prostatectomy (~2013) Prostate cancer (Chronic) diagnosed 2009--s/p prostatectomy only, Followed by Urology Glaucoma Follows routinely with eye docotr DDD (degenerative disc disease), lumbar Cognitive decline Pancreatic cyst (~2020) 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) per GI, repeat MRI in 2 years Vitamin B12 deficiency Balance disorder Medical History Syncope and collapse Hypertension Arterial stenosis Multiple fractures of ribs Acute confusion Voice hoarseness Since 2009 prostate surgery- breathing tube damaged vocal cords Dizziness x one year- usually with change in positions- cardiology adjusting medications- with changing positions slowly- usually does well Headache Improved recently - with decrease is isosorbide mononitrate Constipation Occ Chronic headaches Loss of taste COVID Surgical History History of biopsy "Growth" in esophagus - benign Status post reverse total replacement of right shoulder (~09/2023) History of reverse total replacement of right shoulder joint History of bilateral cataract extraction History of esophagogastroduodenoscopy (EGD) History of colonoscopy 10/2015, Repeat 10 yrs History of open reduction and internal fixation (ORIF) procedure femur fx-right--hardware removed History of left knee surgery History of biopsy nodule on pancreas--benign History of prostate biopsy malignant History of tonsillectomy and adenoidectomy History of eye surgery left - removed "growth" History of cardiac cath x3 last 11/2021 @ [facility] no stents and 2014--unable to stent, had CABGx3 History of wisdom tooth extraction History of inguinal hernia repair left Family History Brother Myocardial infarction Hypertension Mother , 85yo Stomach cancer Hypertension Gallbladder disease Stroke Father , 86yo Hypertension Alzheimer disease Brother Medical history unknown Sister Medical history unknown Sister Medical history unknown Son No problems noted. Daughter Multiple sclerosis Other No family history of adverse response to anesthesia Denies family history of Ovarian cancer Prostate cancer Breast cancer Colorectal cancer Social History Smoking Status: Never smoker Tobacco Type: Cigarettes Age Started Using Tobacco: 23; Age Quit Using Tobacco: 36; packs per day: 1; Cigarettes Per Day: Smoked x 13 yrs; Second Hand Exposure: No; Do You Dip or Chew Tobacco: No; Hx Alcohol Use: No Hx Substance Use: No Preferred Language: Kittitian Communication Ability: Effective Visual Impairment: Limited Hearing Ability: Hard of Hearing District Resource Officer Required: No Beliefs That Will Affect Care: None marital status: Current Living Situation: Parent current occupational status: retired 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 How many Children do You have: 2 Feels Safe at Home: Yes Childhood Exposure to Second-Hand Smoke: Yes Diet: regular caffeine: Yes (coffee ) during the past year weight has: decreased > 10 lbs Dental Care, Regularly: Yes Physical Activity Frequency: 3-4 Times per Week Physical Activity Frequency Comment: walking Seatbelt Use: always Sunscreen Use: No Do you think of yourself as: straight/heterosexual Assistive Devices: None Allergies Allergies Allergy/AdvReac Type Severity Reaction Status Date / Time No Known Drug Allergies Allergy Verified 08/20/25 14:57 Home Meds Home Medications Medication Instructions Recorded Confirmed multivitamin (Daily Multi-Vitamin 1 tab PO QAM 06/14/20 08/23/25 tablet) L.acid,bul,para,rham-B.anim,long 1 cap PO QAM 08/04/22 08/23/25 10 billion cell-inulin 100 mg capsule (Probitoic Digestive Support (6 strain)) fexofenadine 180 mg tablet 180 mg PO QAM 08/04/22 08/23/25 (Blanca Allergy) amlodipine 5 mg tablet 5 mg PO QAM 07/05/25 08/23/25 magnesium oxide 400 mg PO DAILY 07/25/25 08/23/25 qunol 0 mg PO DAILY 07/25/25 08/23/25 cholecalciferol (vitamin D3) 50 50 mcg PO DAILY 08/23/25 08/23/25 mcg (2,000 unit) capsule Previous Rx's Medication Instructions Recorded acetaminophen 325 mg tablet 650 mg (2 x 325 mg) PO Q4H PRN #0 07/18/24 tabs atorvastatin 80 mg tablet 80 mg PO HS #90 tabs 10/27/24 isosorbide mononitrate 60 mg 30 mg (1/2 x 60 mg) PO QAM 90 days 12/25/24 tablet,extended release 24 hr #45 tabs omeprazole 40 mg capsule,delayed 40 mg PO HS barretts esophagus #90 02/07/25 release caps potassium chloride 20 mEq 20 meq PO Q2D #90 tabs 05/14/25 tablet,extended release nitroglycerin 0.4 mg sublingual 0.4 mg sublingual Q5M PRN chest 06/04/25 tablet pain #7 tabs ketoconazole 2 % topical cream 1 applic topical UD #30 grams 07/27/25 metoprolol succinate 25 mg 25 mg PO DAILY #30 tabs 07/30/25 tablet,extended release 24 hr (Toprol XL) clopidogrel 75 mg tablet (Plavix) 75 mg PO DAILY #90 tabs 08/20/25 losartan 50 mg tablet 50 mg PO DAILY #30 tabs 08/20/25 Results & Data (ED) Vital Signs Vital Signs - 24 hr 09/04/25 12:27 09/04/25 12:28 09/04/25 12:30 Temperature 36.4 C L Temperature Source Oral Pulse Rate 73 65 63 Pulse Rhythm Regular Pulse Strength Normal Respiratory Rate 16 19 Respiratory Effort / Characteristics Non-Labored Spontaneous Respiratory Depth Normal Respiratory Pattern Regular Blood Pressure 212/92 H 193/81 H Blood Pressure Mean 132 115 Blood Pressure Position Semi-fowlers Pulse Oximetry 96 97 Oxygen Delivery Method Room Air Room Air Sepsis Recent Fever Within 48 Hours No Sepsis New/Unexplained Change in Mental Status No Sepsis Action Taken by Nursing No Action Required 09/04/25 12:35 09/04/25 13:00 09/04/25 13:30 Temperature Temperature Source Pulse Rate 64 61 72 Pulse Rhythm Regular Pulse Strength Respiratory Rate 16 20 21 Respiratory Effort / Characteristics Respiratory Depth Respiratory Pattern Blood Pressure 159/64 H 174/78 H Blood Pressure Mean 96 97 Blood Pressure Position Pulse Oximetry 97 97 98 Oxygen Delivery Method Room Air Room Air Room Air Sepsis Recent Fever Within 48 Hours Sepsis New/Unexplained Change in Mental Status Sepsis Action Taken by Nursing 09/04/25 14:00 Temperature Temperature Source Pulse Rate 69 Pulse Rhythm Pulse Strength Respiratory Rate 17 Respiratory Effort / Characteristics Respiratory Depth Respiratory Pattern Blood Pressure 162/71 H Blood Pressure Mean 105 Blood Pressure Position Pulse Oximetry 98 Oxygen Delivery Method Room Air Sepsis Recent Fever Within 48 Hours Sepsis New/Unexplained Change in Mental Status Sepsis Action Taken by [facility] Medications Current Medication List: was personally reviewed by me Laboratory Data Attestation: I reviewed the patient's lab results. 09/04/25 12:27 09/04/25 12:27 Lab Results 09/04/25 Range/Units 12:27 WBC 4.87 (4.8-10.8) K/ul RBC 4.12 L (4.70-6.10) M/uL Hgb 12.4 L (14.0-18.0) g/dL Hct 35.0 L (42.0-52.0) % MCV 85.0 (80.0-100.0) fL MCH 30.1 (25.0-34.0) pg MCHC 35.4 (32.0-36.0) g/dL RDW Std Deviation 38.5 (36.4-46.3) fL RDW Coeff of [place] 12.7 (11.5-14.5) % Plt Count 137 (130-400) K/uL MPV 10.9 (9.4-12.4) fL Immature Gran % (Auto) 0.2 % Neut % (Auto) 76.3 % Lymph % (Auto) 13.3 % [place] % (Auto) 8.2 % Eos % (Auto) 1.8 % Baso % (Auto) 0.2 % Neut # (Auto) 3.71 (1.40-6.50) K/uL Lymph # (Auto) 0.65 L (1.20-3.40) K/uL [place] # (Auto) 0.40 (0.11-0.59) K/uL Eos # (Auto) 0.09 (0.00-0.50) K/uL Baso # (Auto) 0.01 (0.00-0.20) K/uL Immature Gran # (Auto) 0.01 (0.01-0.20) K/uL Sodium 143 (136-145) mmol/L Potassium 3.5 (3.5-5.1) mmol/L Chloride 109 H (98-107) mmol/L Carbon Dioxide 24 (21-32) mmol/L Anion Gap 10 (3-11) BUN 18 (6-23) mg/dl Creatinine 0.83 (0.6-1.4) mg/dl Est Cr Clr Drug Dosing 75.5 ml/min eGFR 91.84 BUN/Creatinine Ratio 21.7 H (10-20) Glucose 168 H (70-99(Fasting)) mg/dl Calcium 8.8 (8.6-10.3) mg/dl Magnesium 1.3 L (1.7-2.4) mg/dl Total Bilirubin 0.7 (0.2-1.0) mg/dl AST 16 (13-39) U/L ALT 20 (7-52) U/L Alkaline Phosphatase 101 (34-104) U/L Troponin I High Sens 16.2 (0-20) pg/ml Total Protein 6.2 (6.0-8.3) gm/dl Albumin 4.1 (3.4-5.0) gm/dl Globulin 2.1 L (2.5-4.0) gm/dl Albumin/Globulin Ratio 2.0 (0.9-2) Administered Medications Discontinued Medications Sodium Chloride (Nss) 500 mls @ 999 mls/hr IV .Q31M ONE Stop: 09/04/25 13:28 Last Infusion: 09/04/25 13:56 Dose: Infused Documented By: Admin: 09/04/25 13:14 Dose: 999 mls/hr Documented By: STIVEN Magnesium Sulfate/Dextrose (Magnesium Sulfate / D5w) 1 gm in 100 mls @ 200 mls/hr IV Q30M MARIBEL Stop: 09/04/25 15:29 Last Admin: 09/04/25 16:39 Dose: 200 mls/hr Documented By: Infusion: 09/04/25 16:39 Dose: Infused Documented By: Admin: 09/04/25 15:58 Dose: 200 mls/hr Documented By: MICAH Ondansetron HCl (Ondansetron Inj 2 Mg/Ml 2 Ml Vial) 4 mg IV NOW STA Stop: 09/04/25 12:59 Last Admin: 09/04/25 13:14 Dose: 4 mg Documented By: STIVEN Imaging Data Radiologist's Impression: Chest X-Ray 09/04/25 13:28 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 Median sternotomy wires. Electronic device projects over the left heart border. No pneumothorax, pleural effusion or airspace consolidation. Reverse right shoulder arthroplasty. Degenerative changes of the spine and left shoulder. IMPRESSION: No acute process of the chest. ACT 112: Negative or not required by law. The above report was generated using voice recognition software. It may contain grammatical, syntax or spelling errors. Electronically signed by: Jose Smith M.D. 09/04/2025 2:16 PM Discharge Plan Visit Data Chief Complaint: Syncope Stated Complaint: SYNCOPE ED Provider: Chau Byrd Discharge Problem: Syncope, Hypomagnesemia Patient Disposition: Admitted As Inpatient Condition: Good Forms Stand Alone Forms: My [facility] Prescriptions Prescriptions: No Action cholecalciferol (vitamin D3) 50 mcg (2,000 unit) capsule 50 mcg PO DAILY atorvastatin 80 mg tablet 80 mg PO HS Qty: 90 3RF isosorbide mononitrate 60 mg tablet extended release 24 hr 30 mg PO QAM 90 Days Qty: 45 3RF omeprazole 40 mg capsule,delayed release(DR/EC) 40 mg PO HS Qty: 90 3RF potassium chloride 20 mEq tablet extended release 20 meq PO Q2D Qty: 90 3RF ketoconazole 2 % cream 1 applic topical UD Qty: 30 2RF Rx Instructions: 1 applic topically to feet 2-3 nights weekly for maintenance. fexofenadine [Blanca Allergy] 180 mg tablet 180 mg PO QAM Probiotic Digest Supp (6-strn) 10 billion cell -100 mg capsule 1 cap PO QAM multivitamin [Daily Multi-Vitamin] Tablet 1 tab PO QAM losartan 50 mg tablet 50 mg PO DAILY Qty: 30 2RF clopidogrel [Plavix] 75 mg tablet 75 mg PO DAILY Qty: 90 3RF nitroglycerin 0.4 mg tablet, sublingual 0.4 mg sublingual Q5M PRN (Reason: chest pain) Qty: 7 3RF Rx Instructions: do not exceed 3 doses per episode magnesium oxide 400 mg magnesium capsule 400 mg PO DAILY qunol 0 mg PO DAILY Patient Comments: otc unknown dose acetaminophen 325 mg Tablet 650 mg PO Q4H PRNQty: 0 0RF amlodipine 5 mg tablet 5 mg PO QAM metoprolol succinate [Toprol XL] 25 mg tablet extended release 24 hr 25 mg PO DAILY Qty: 30 0RF Referrals Referrals: Pk Saeed DO [Primary Care Provider] - Discharge Problem: Syncope Qualifiers: Syncope type: unspecified Qualified Code(s): R55 - Syncope and collapse
[2025-09-04 12:47] LABS: Hematocrit (blood only) 35.0 % (42.0-52.0); Hemoglobin 12.4 g/dL (14.0-18.0); Immature Granulocytes # (auto) 0.01 K/uL (0.01-0.20); Immature Granulocytes % (auto) 0.2 %; Mean Corpuscular Hemoglobin 30.1 pg (25.0-34.0); Mean Corpuscular Volume 85.0 fL (80.0-100.0); Platelet Count 137 K/uL (130-400); RDW Standard Deviation 38.5 fL (36.4-46.3); Red Blood Count 4.12 M/uL (4.70-6.10); White Blood Count 4.87 K/ul (4.8-10.8)
[2025-09-04 12:59] LABS: Alanine Aminotransferase 20.0 U/L (7-52); Albumin Globulin Ratio 2.0 (0.9-2); Albumin Level 4.1 gm/dl (3.4-5.0); Alkaline Phosphatase 101.0 U/L (34-104); Anion Gap 10.0 (3-11); Bilirubin,Total 0.7 mg/dl (0.2-1.0); Blood Urea Nitrogen 18.0 mg/dl (6-23); Calcium 8.8 mg/dl (8.6-10.3); Carbon Dioxide 24.0 mmol/L (21-32); Chloride 109.0 mmol/L (98-107); Creatinine Clr Calc Pharmacy 75.5 ml/min; Globulin 2.1 gm/dl (2.5-4.0); Glucose 168.0 mg/dl (70-99(Fasting)); Magnesium 1.3 mg/dl (1.7-2.4); Potassium 3.5 mmol/L (3.5-5.1); Sodium 143.0 mmol/L (136-145); Total Protein 6.2 gm/dl (6.0-8.3)
[2025-09-04] MEDS: ONDANSETRON INJ 2 MG/ML 2 ML VIAL IV STA (13:14)
[2025-09-04] MEDS: SODIUM CHLORIDE 0.9% 500 ML IV ONE (13:14)
--- NOTE | 2025-09-04 14:18 | XRay Report ---
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 Median sternotomy wires. Electronic device projects over the left he art border. No pneumothorax, pleural effusion or airspace consolidation. Reverse right shoulder arthr oplasty. Degenerative changes of the spine and left shoulder. IMPRESSION: No acute process of the chest. ACT 112: Negative or not required by law. The above report was generated using voice recognition software. It may contain grammatical, syntax o r spelling errors. Electronically signed by: Jose Smith M.D. 09/04/2025 2:16 PM
--- NOTE | 2025-09-04 15:19 | History & Physical Report ---
Date of Service September 04, 2025 Assessment & Plan (1) Syncope: (2) Vertebral artery stenosis: (3) Cognitive impairment: (4) CAD (coronary artery disease): (5) Hypertension: (6) Tremor: Plan 1. Recurrent syncopal episodes: Over the past several months, patient has been having recurrent syncopal episodes. Past episodes seems to suggest vasovagal and orthostatic syncope. Tilt test was positive However MRI brain was negative for any acute intracranial pathology Although there could be a component of bilateral vertebral artery stenosis contributing, given that finding on CT angio. Of note recently according to the , patient has been having worsening slow and shuffling gait and also tremors. Could have an underlying Parkinson's with attendant autonomic dysfunction. During his previous admissions, 2D echo was done which was normal, MRI brain, EEG. However will obtain bilateral carotid duplex to rule out stenosis 2. Mild cognitive impairment: Patient appears at baseline, according to the 3. Hypertension: Blood pressure 160s systolic Given his orthostatics, will be in support of not being very stringent in his antihypertensive regimen 4. CAD: Status post CABG x 3 Last 2D echo showed preserved ejection fraction Patient also had a normal stress test in July 2025 Continue Plavix and statin 5.Tremors: As pointed out above, patient could be developing Parkinson's, given masked facies shuffling gait tremor at rest Will follow-up outpatient with his neurologist Full code History of Present Illness Chief Complaint: Syncope Primary Care Provider: Pk Saeed DO This is a 75-year-old male with a history of hypertension, CAD, multiple syncopal episodes, who presents to the hospital today after another episode of syncope. Most of the history was obtained from the patient and also his who was at the bedside. According to the , patient was sitting up today when all of a sudden his face turned pale and he passed out. She tried talking to him and he was staring straight ahead. Patient has had multiple syncopal episodes in the past going on for several months. During his last admission in July, he had an MRI CTA and 2D echo stress test all were essentially within normal limits apart from CT angio which showed evidence of bilateral vertebral stenosis. He also has a loop recorder which did not cook pickled meat any arrhythmias apart from a 3-second pause. He also has had a tilt table test which showed evidence of orthostatic hypotension. Of note, EEG has been normal as well However according to the , at this time around he did not get a syncopal episode while sitting up from a lying position or standing up from a sitting position. He got this episode this time around while he was already sitting. Upon further questioning, he admits to slow shuffling gait and mild resting tremors. Here in emergency department, basic labs CBC and BMP were essentially within normal limits however the patient and the are so worried and will want some further answers regarding his syncopal episodes. He will be admitted for observation. Allergies Allergy/AdvReac Type Severity Reaction Status Date / Time No Known Drug Allergies Allergy Verified 08/20/25 14:57 Home Medications Medication Instructions Recorded Confirmed Type multivitamin (Daily Multi-Vitamin 1 tab PO QAM 06/14/20 08/23/25 History tablet) L.acid,bul,para,rham-B.anim,long 1 cap PO QAM 08/04/22 08/23/25 History 10 billion cell-inulin 100 mg capsule (Probitoic Digestive Support (6 strain)) fexofenadine 180 mg tablet 180 mg PO QAM 08/04/22 08/23/25 History (Blanca Allergy) acetaminophen 325 mg tablet 650 mg (2 x 325 mg) PO Q4H PRN #0 07/18/24 08/23/25 Rx tabs atorvastatin 80 mg tablet 80 mg PO HS #90 tabs 10/27/24 08/23/25 Rx isosorbide mononitrate 60 mg 30 mg (1/2 x 60 mg) PO QAM 90 days 12/25/24 08/23/25 Rx tablet,extended release 24 hr #45 tabs omeprazole 40 mg capsule,delayed 40 mg PO HS barretts esophagus #90 02/07/25 08/23/25 Rx release caps potassium chloride 20 mEq 20 meq PO Q2D #90 tabs 05/14/25 08/23/25 Rx tablet,extended release nitroglycerin 0.4 mg sublingual 0.4 mg sublingual Q5M PRN chest 06/04/25 08/23/25 Rx tablet pain #7 tabs amlodipine 5 mg tablet 5 mg PO QAM 07/05/25 08/23/25 History magnesium oxide 400 mg PO DAILY 07/25/25 08/23/25 History qunol 0 mg PO DAILY 07/25/25 08/23/25 History ketoconazole 2 % topical cream 1 applic topical UD #30 grams 07/27/25 08/23/25 Rx metoprolol succinate 25 mg 25 mg PO DAILY #30 tabs 07/30/25 08/23/25 Rx tablet,extended release 24 hr (Toprol XL) clopidogrel 75 mg tablet (Plavix) 75 mg PO DAILY #90 tabs 08/20/25 08/23/25 Rx losartan 50 mg tablet 50 mg PO DAILY #30 tabs 08/20/25 08/23/25 Rx cholecalciferol (vitamin D3) 50 50 mcg PO DAILY 08/23/25 08/23/25 History mcg (2,000 unit) capsule Past Med/Surg History Problem List (Updated 09/04/25 @ 15:19 by Ankush Vu MD) Tremor Acute confusion (Acute) Adult failure to thrive (Acute) Syncope (Acute) Dementia Vertebral artery stenosis Urinary urgency Cognitive impairment Confusion Pain in shoulder region after shoulder replacement CAD (coronary artery disease) s/p 3 vessel CABG 2016- (FUENTES to LAD; JHONY to RI but graft was atretic on repeat cath; SVG to OM) Hypertension S/P CABG x 3 (Acute) 2014 @ [facility] in [place], [place] Exertional angina Dyspnea on exertion Dyslipidemia (Chronic) GERD (gastroesophageal reflux disease) Well controlled and stable Prediabetes Presumed- Hgb A1C 6.1 on 08/10/23 Hagan's esophagus (~2009) Follows with GI, Last EGD 11/2023 History of prostatectomy (~2013) Prostate cancer (Chronic) diagnosed 2009--s/p prostatectomy only, Followed by Urology Glaucoma Follows routinely with eye docotr DDD (degenerative disc disease), lumbar Cognitive decline Pancreatic cyst (~2020) 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) per GI, repeat MRI in 2 years Vitamin B12 deficiency Balance disorder Medical History Syncope and collapse Hypertension Arterial stenosis Multiple fractures of ribs Acute confusion Voice hoarseness Dizziness Headache Constipation Chronic headaches Loss of taste COVID Surgical History History of biopsy Status post reverse total replacement of right shoulder (~09/2023) History of reverse total replacement of right shoulder joint History of bilateral cataract extraction History of esophagogastroduodenoscopy (EGD) History of colonoscopy History of open reduction and internal fixation (ORIF) procedure History of left knee surgery History of biopsy History of prostate biopsy History of tonsillectomy and adenoidectomy History of eye surgery History of cardiac cath History of wisdom tooth extraction History of inguinal hernia repair Family History Brother Myocardial infarction Hypertension Mother Stomach cancer Hypertension Gallbladder disease Stroke Father Hypertension Alzheimer disease Brother Medical history unknown Sister Medical history unknown Sister Medical history unknown Son No problems noted. Daughter Multiple sclerosis Other No family history of adverse response to anesthesia Denies family history of Ovarian cancer Prostate cancer Breast cancer Colorectal cancer Social History Smoking Status: Never smoker Tobacco Type: Cigarettes Age Started Using Tobacco: 23; Age Quit Using Tobacco: 36; packs per day: 1; Cigarettes Per Day: Smoked x 13 yrs; Second Hand Exposure: No; Do You Dip or Chew Tobacco: No; Hx Alcohol Use: No Hx Substance Use: No Preferred Language: Armenian Communication Ability: Effective Visual Impairment: Limited Hearing Ability: Hard of Hearing Wine Steward/Stewardess Required: No Beliefs That Will Affect Care: None marital status: Current Living Situation: Parent current occupational status: retired 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 Physical Exam Physical Exam: The patient is awake, alert and oriented 3, well developed and well nourished, normocephalic and atraumatic, lying in bed and in no acute distress. HEENT--PERRL, EOMI, mucous membranes and oropharynx mildly dry Neck--supple. No JVD. No bruits. Thyroid normal, trachea midline, no adenopathy. Heart--normal S1 and S2. No murmurs, rubs or gallops. Lungs--clear bilaterally, no respiratory distress, no accessory muscle use. Abdomen--normal bowel sounds and soft. Extremities--no cyanosis or clubbing. No edema. Dermatologic--normal skin turgor, normal color, no abnormal lymph nodes, no rash. Neurologic--cranial nerves II through XII grossly intact. Rheumatologic--normal range of motion. Psychiatric--normal affect. Results & Data Results & Data Vital Signs (Past 12 Hours) Vital Signs Temp Pulse Resp BP Pulse Ox O2 Del Method 09/04/25 14:00 69 17 162/71 H 98 Room Air 09/04/25 13:30 72 21 174/78 H 98 Room Air 09/04/25 13:00 61 20 159/64 H 97 Room Air 09/04/25 12:35 64 16 97 Room Air 09/04/25 12:30 63 19 193/81 H 97 Room Air 09/04/25 12:28 65 09/04/25 12:27 97.5 F L 73 16 212/92 H 96 Room Air PG Care Time/CCT Total # of Minutes Spent Total Time Spent with Patient: Total time spent is greater than 50% in coordination of care (as documented) at patient's floor/unit and/or counseling patient: Coding Level of Care Code 37001 INT INP/OBS CARE 2/55MIN Diagnoses Syncope R55 Vertebral artery stenosis I65.09 Cognitive impairment R41.89 Coronary artery disease of [place] artery of [place] heart with stable angina pectoris I25.118 Coronary Disease-Associated Artery/Lesion type: [place] artery [place] vs. transplanted heart: [place] heart Associated angina: with stable angina Primary hypertension I10 Hypertension type: primary hypertension Tremor R25.1 Time Spent (min) 55 (4) CAD (coronary artery disease) Coronary Disease-Associated Artery/Lesion type: [place] artery [place] vs. transplanted heart: [place] heart Associated angina: with stable angina Qualified Code(s): I25.118 - Atherosclerotic heart disease of [place] coronary artery with other forms of angina pectoris (5) Hypertension Hypertension type: primary hypertension Qualified Code(s): I10 - Essential (primary) hypertension
[2025-09-04] MEDS: MAGNESIUM SULFATE / D5W 1 GM/100 ML BAG IV SCH (15:58)
[2025-09-04 17:46] VITALS: RESP 18
[2025-09-04] MEDS: ATORVASTATIN 40 MG TAB PO SCH (20:46)
--- NOTE | 2025-09-04 21:08 | Ultrasound Report ---
Exam(s): US CAROTID EXAM: US Duplex Bilateral Extracranial Arteries CLINICAL HISTORY: Reason for exam: syncope. TECHNIQUE: Real-time duplex ultrasound scan of the extracranial arteries integrating B-mode two-dimensional vascular structure, Doppler spectral analysis and color flow Doppler imaging. COMPARISON: CT angiogram from 07/23/2025 FINDINGS: Right common carotid artery: Right common carotid artery, normal waveform, 109, 113 cm/sec. No occlusion or significant stenosis on color flow and spectral Doppler imaging. Right internal carotid artery: Right internal carotid artery, normal waveform, 79 cm/sec. No occlusion or significant stenosis on color flow and spectral Doppler imaging. Right external carotid artery: Right external carotid artery, normal waveform, 215 cm/sec. No occlusion or significant stenosis on color flow and spectral Doppler imaging. Right vertebral artery: Right vertebral artery, normal waveform, 61 cm/sec. Right ICA/CCA ratio: Right ICA/CCA ratio 0.7. Left common carotid artery: Left common carotid artery, normal waveform, 85 cm/sec. No occlusion or significant stenosis on color flow and spectral Doppler imaging. Left internal carotid artery: Left internal carotid artery, normal waveform, 82 cm/sec. No occlusion or significant stenosis on color flow and spectral Doppler imaging. Left external carotid artery: Left external carotid artery, normal waveform, 139 cm/sec. No occlusion or significant stenosis on color flow and spectral Doppler imaging. Left vertebral artery: Left vertebral artery, antegrade flow, 47 cm/sec with blunted waveform consistent with significant origin stenosis which was seen on the comparison CTA. Left ICA/CCA ratio: Left ICA/CCA ratio 1.2. Lymph nodes: Unremarkable. No lymphadenopathy. CAROTID STENOSIS REFERENCE USING IAC CRITERIA: Mild - <50% stenosis. ICA PSV is less than 180 cm/s and plaque or intimal thickening is visible. Moderate - 50-69% stenosis. ICA PSV is 180 to 230 cm/s and plaque is visible. Severe - 70-94% stenosis. ICA PSV is more than 230 cm/s and visible plaque with lumen narrowing is seen. Near occlusion - 95-99% stenosis. ICA PSV is variable and significant plaque with luminal narrowing is seen. Occluded - 100% stenosis. No flow identified. IMPRESSION: Left vertebral artery, antegrade flow, 47 cm/sec with blunted waveform consistent with significant origin stenosis which was seen on the comparison CTA. Carotid artery velocity measurements and velocity ratios are consistent with less than 50% stenosis bilaterally. Electronically signed by: Sergei Barrios MD 09/04/25 21:07 PM
[2025-09-04] MEDS: ACETAMINOPHEN 325 MG TAB PO PRN (21:09)
--- NOTE | 2025-09-05 06:04 | Electrocardiogram Report ---
Test Reason : Blood Pressure : */* mmHG Vent. Rate : 70 BPM Atrial Rate : 70 BPM P-R Int : * ms QRS Dur : 96 ms QT Int : 444 ms P-R-T Axes : 43 22 63 degrees QTcB Int : 479 ms Normal sinus rhythm Nonspecific T wave abnormality Abnormal ECG When compared with ECG of 27-Jul-2025 11:00, Criteria for Inferior infarct are no longer Present Nonspecific T wave abnormality no longer evident in Inferior leads Confirmed by [place] ([id number]) on 09/05/2025 6:03:57 AM Referred By: Confirmed By: [place]
[2025-09-05 07:14] VITALS: TEMP 97.5; O2SAT 95
[2025-09-05] MEDS: METOPROLOL SUCC 25MG EXT REL TAB PO SCH (09:30)
[2025-09-05] MEDS: ISOSORBIDE MONO EXTENDED REL 30 MG TABCR PO SCH (09:30)
[2025-09-05] MEDS: LOSARTAN POTASSIUM 50 MG TAB PO SCH (09:31)
[2025-09-05] MEDS: CHOLECALCIFEROL 25 MCG (1000 UNITS) TAB PO SCH (09:31)
[2025-09-05] MEDS: CLOPIDOGREL BISULFATE 75 MG TAB PO SCH (09:31)
[2025-09-05 09:42] VITALS: BP 184/97; PULSE 60
--- NOTE | 2025-09-05 10:40 | Discharge Summary ---
Date of Service September 05, 2025 Admission HPI Per Admitting Provider This is a 75-year-old male with a history of hypertension, CAD, multiple syncopal episodes, who presents to the hospital today after another episode of syncope. Most of the history was obtained from the patient and also his who was at the bedside. According to the , patient was sitting up today when all of a sudden his face turned pale and he passed out. She tried talking to him and he was staring straight ahead. Patient has had multiple syncopal episodes in the past going on for several months. During his last admission in July, he had an MRI CTA and 2D echo stress test all were essentially within normal limits apart from CT angio which showed evidence of bilateral vertebral stenosis. He also has a loop recorder which did not order picker/assembler any arrhythmias apart from a 3-second pause. He also has had a tilt table test which showed evidence of orthostatic hypotension. Of note, EEG has been normal as well However according to the , at this time around he did not get a syncopal episode while sitting up from a lying position or standing up from a sitting position. He got this episode this time around while he was already sitting. Upon further questioning, he admits to slow shuffling gait and mild resting tremors. Here in emergency department, basic labs CBC and BMP were essentially within normal limits however the patient and the are so worried and will want some further answers regarding his syncopal episodes. He will be admitted for observation. Admission Exam (Per Admitting) Constitutional The patient is awake, alert and oriented 3, well developed and well nourished, normocephalic and atraumatic, lying in bed and in no acute distress. HEENT--PERRL, EOMI, mucous membranes and oropharynx mildly dry Neck--supple. No JVD. No bruits. Thyroid normal, trachea midline, no adenopathy. Heart--normal S1 and S2. No murmurs, rubs or gallops. Lungs--clear bilaterally, no respiratory distress, no accessory muscle use. Abdomen--normal bowel sounds and soft. Extremities--no cyanosis or clubbing. No edema. Dermatologic--normal skin turgor, normal color, no abnormal lymph nodes, no rash. Neurologic--cranial nerves II through XII grossly intact. Rheumatologic--normal range of motion. Psychiatric--normal affect. Discharge Data Consultations 09/04/25 15:27 ED Decision to Admit Stat Hospital Course (1) Syncope: (2) Vertebral artery stenosis: (3) Cognitive impairment: (4) CAD (coronary artery disease): (5) Hypertension: (6) Tremor: Plan 1. Recurrent syncopal episodes: Over the past several months, patient has been having recurrent syncopal episodes. Past episodes seems to suggest vasovagal and orthostatic syncope. Tilt test was positive However MRI brain was negative for any acute intracranial pathology Although there could be a component of bilateral vertebral artery stenosis contributing, given that finding on CT angio. Of note recently according to the , patient has been having worsening slow and shuffling gait and also tremors. Could have an underlying Parkinson's with attendant autonomic dysfunction. During his previous admissions, 2D echo was done which was normal, MRI brain, EEG. bilateral carotid duplex did not show any significant stenosis 2. Mild cognitive impairment: Patient appears at baseline, according to the 3. Hypertension: Blood pressure 160s systolic Given his orthostatics, will be in support of not being very stringent in his antihypertensive regimen 4. CAD: Status post CABG x 3 Last 2D echo showed preserved ejection fraction Patient also had a normal stress test in July 2025 Continue Plavix and statin 5.Tremors: As pointed out above, patient could be developing Parkinson's, given masked facies shuffling gait tremor at rest Will follow-up outpatient with his neurologist Full code Coding Level of Care Code 49940 INP/OBS DISCH >30 MIN Diagnoses Syncope R55 Vertebral artery stenosis I65.09 Cognitive impairment R41.89 Coronary artery disease of [place] artery of [place] heart with stable angina pectoris I25.118 Coronary Disease-Associated Artery/Lesion type: [place] artery [place] vs. transplanted heart: [place] heart Associated angina: with stable angina Primary hypertension I10 Hypertension type: primary hypertension Tremor R25.1 Time Spent (min) 35
== END 2025-09-05 10:07 | disposition home or self-care (01) ==
LOC: ED 12:14 → 2N 12:14